=== PATIENT | female | born 1965 | race Caucasian/White ===

== ENCOUNTER 2017-03-13 15:43 | Emergency (ER) | payer MEDICAID ==
--- NOTE | 2017-03-13 15:59 | CPEKG ---
Heart Rate: 75 RR Interval: 800 P-R Interval: 140 QRSD Interval: 84 QT Interval: 464 QTC Interval: 519 P [place]: 62 QRS [place]: -24 T Wave [place]: 37 EKG Severity - ABNORMAL ECG - EKG Impression: SINUS RHYTHM EKG Impression: BORDERLINE LEFT AXIS DEVIATION EKG Impression: PROLONGED QT INTERVAL Electronically Signed By: Rosario Jose 14-Mar-2017 23:00:17
--- NOTE | 2017-03-13 16:13 | EDPHY ---
HPI/HX/ROS/PE/MDM Narrative: CHIEF COMPLAINT: Esophageal pain. HISTORY OF PRESENT ILLNESS: The patient is a 51-year-old female presenting with upper chest/esophageal pain. She reports having narrowing of her esophagus and has had bolus impaction past. The patient is followed by a puppet maker and has had multiple scopes done for this issue. She has had esophagus dilated in the past, last dilation was in August 2016. She also has history of esophageal varices. The patient has been seen here as well for this issue and had 2 negative [address]s. This morning the patient tried swallowing eggs and states it "felt like swallowing bricks". She has esophageal pain starting in her mid lower neck (at sternal notch) and radiating down to the epigastric region. She states it feels like her esophagus "clamps down so hard" it causes difficulty swallowing. In the past she has had difficulty swallowing saliva. Today the pain is not as severe as previous episodes. She feels as though there is a foreign body stuck in her esophagus. REVIEW OF SYSTEMS: Aside from elements discussed in the HPI, a comprehensive 10-point review of systems was reviewed and is negative. PAST MEDICAL HISTORY: Cirrhosis, Depression, EtOH ulcers. Patient is on the liver transplant list at the [facility]. SOCIAL HISTORY: Cigarette smoker. Scaling Machine Operator: Patricia Young at [facility]. VITAL SIGNS: Reviewed by me GENERAL: Obese, pleasant female, resting comfortably in no respiratory distress. HEENT: Atraumatic. Eyes: Scleral icterus. Mouth: moist mucous membranes. No erythema or lesions. Neck: supple with no adenopathy. LUNGS: Clear to auscultation bilaterally, no wheezes, rhonchi or rales. No crepitus of the chest wall. Mild tenderness at upper sternal area. CARDIAC: Regular rate and rhythm, no rubs, murmurs or gallops. ABDOMEN: Obese, mild epigastric tenderness. No guarding. No rebound. BACK: No CVA tenderness. EXTREMITIES: No trauma. Trace edema. Range of motion is normal throughout. NEURO: Alert and oriented, grossly nonfocal. SKIN: Warm and dry, no rash. PSYCHIATRIC: Normal mentation, no agitation. Portions of this note were transcribed by a biomedical equipment specialist. I personally performed a history, physical exam, medical decision making, and confirmed accuracy of information the transcribed note. ED Course: The patient presents with epigastric tightness and esophageal foreign object sensation. The patient has history of cirrhosis. She has been evaluated for epigastric pain in the past. She has had 2 abdominal CTs done here that were negative. Patient sees a puppet maker and has history of epigastric dilation. Today the patient had severe pain with swallowing. She is able to swallow solids and liquids though she has a significant about of pain. Plan for 1mg IV Glucagon. 5:30 p.m.: I reevaluated the patient, her pain has improved. She reports some nausea. Plan for Zofran and reevaluate. LFTs are elevated. This is consistent with previous. Bilirubin is consistent with previous elevations. I will speak to her puppet maker. I added a Troponin to lab work. I viewed the x-ray of the chest and soft tissue neck myself on the PACS system. Please see the full radiology report in the imaging section. 7:00 p.m.: I spoke to the patient's puppet maker, Dr. Young. Will see patient on thursday for scope. Patient is not drooling, tolerating orals and some solids. Troponin is negative. I discussed findings with the patient. Patient is tolerating fluids. Reports that in the past this spasm often resolves on its own. She tells me this is not the most severe that her pain has been. Plan to discharge patient home. Patient agrees with the plan and will followup with her puppet maker. MDM: After history and physical examination, the differential for patient complaints considered including but not limited to, myocardial ischemia, acute coronary syndrome, esophageal foreign body, esophageal spasm, esophagitis, chest wall pain, pleural inflammation and pulmonary infectious causes. - Data Points Imaging: I viewed and interpreted images myself Laboratory Results: Laboratory Results 03/13/17 15:57 03/13/17 15:57 Medications Given: Discontinued Medications Al Hydroxide/Mg Hydroxide (Maalox Susp) 30 ml PO EDNOW ONE Stop: 03/13/17 19:04 Last Admin: 03/13/17 19:05 Dose: 30 ml Glucagon (Glucagen) 1 mg IVP EDNOW ONE Stop: 03/13/17 16:20 Last Admin: 03/13/17 17:06 Dose: 1 mg Lidocaine (Lidocaine 2% Viscous) 5 ml PO EDNOW ONE Stop: 03/13/17 19:03 Last Admin: 03/13/17 19:05 Dose: 5 ml Nitroglycerin (Nitrostat) 0.4 mg SL EDNOW ONE Stop: 03/13/17 18:59 Last Admin: 03/13/17 19:26 Dose: Not Given Promethazine HCl (Phenergan) 25 mg PO EDNOW ONE Stop: 03/13/17 17:43 Last Admin: 03/13/17 18:17 Dose: 25 mg Simethicone (Mylicon) 80 mg PO EDNOW ONE Stop: 03/13/17 19:05 Last Admin: 03/13/17 19:05 Dose: 80 mg General Time Seen by Provider: 03/13/17 15:57 Initial Vital Signs: Initial Vital Signs Temperature (C) 36.9 C 03/13/17 15:47 Heart Rate 70 03/13/17 15:47 Respiratory Rate 14 03/13/17 15:47 Blood Pressure 120/76 03/13/17 15:47 O2 Sat (%) 96 03/13/17 15:47 O2 Delivery Mode Room Air Allergies/Adverse Reactions: peanut [Peanut] Allergy (Severe, Verified 04/10/16 15:02) Other-Enter Comments [place] And Derivatives Allergy (Mild, Verified 04/10/16 15:02) Tingling of mouth/throat meperidine HCl [From Demerol] Allergy (Mild, Verified 04/10/16 15:02) Other-Enter Comments minerals [From Enviro Stress] Allergy (Mild, Verified 04/10/16 15:02) Other-Enter Comments Shellfish *RETIRED-07/19/12 [Shellfish] Allergy (Mild, Verified 04/10/16 15:02) Tingling of mouth/throat vitamin B complex and C [From Enviro Stress] Allergy (Mild, Verified 04/10/16 15 :02) Other-Enter Comments vitamin E [From Enviro Stress] Allergy (Mild, Verified 04/10/16 15:02) Other-Enter Comments Home Medications: Medication Instructions Recorded Ranitidine HCl [Zantac] 300 mg PO HS #30 tablet 06/17/15 Potassium Cl [Klor-Con 10 meq (RX)] 10 meq PO DAILY 10/10/15 Spironolactone [Aldactone] 150 mg PO DAILY 10/10/15 buPROPion [Wellbutrin 75mg (*)] 75 mg PO DAILY 10/10/15 Pantoprazole Sodium [Protonix 40mg 40 mg PO DAILY #30 tab 10/14/15 (*)] Acetaminophen [Tylenol ES 500 mg 1,000 mg PO Q6 PRN 04/10/16 (*)] Cholecalciferol Vit D3 [Vitamin D3 2,000 units PO DAILY 04/10/16 2000 units] Herbals/Supplements -Info Only 1 ea PO DAILY 04/10/16 Propranolol HCl [Inderal 20mg (*)] 20 mg PO HS 04/10/16 Vit C/Dl-E AC/Lut/Copper/Znox 1 each PO DAILY 04/10/16 [Preservision Softgel] metroNIDAZOLE [Flagyl 500 mg (*)] 500 mg PO Q8 #21 tab 04/11/16 Lexapro 07/24/16 Metformin HCl 07/24/16 Oxycodone HCl [Oxyir] 5 mg PO Q4-8PRN #20 capsule 07/24/16 Xifaxan 07/24/16 Departure - Departure Disposition: Home, Routine, Self-Care Clinical Impression: History of esophageal stricture, upper chest pain, Sensation of foreign body in esophagus Condition: Good Instructions: Esophageal Stricture (ED) Additional Instructions: Please followup with your Scaling Machine Operator on Thursday next week further evaluation. Referrals: Bridget Lieberman, PAC [Primary Care Provider] - As per Instructions Hector Gomez, Gastroenterology [Other] - As per Instructions Report Scribed for: Barbara Hair Report Scribed by: Linda Prakash Date of Report: 03/13/17 Time of Report: 16:21
[2017-03-13] MEDS ORDERED: GLUCAGON,HUMAN RECOMBINANT 1 MG VIAL IVP ONE (16:19)
[2017-03-13 16:23] LABS: ADD DIFF? NO; ADD MORPH? NO; ADD SCAN? NO; ATYPICAL LYMPHOCYTE FLAG 30 (0-99); FRAGMENT RBC FLAG 0 (0-99); HEMATOCRIT 34.5 % (38.0-47.0); HEMOGLOBIN 12.5 g/dL (12.6-16.3); LEFT SHIFT FLG 0 (0-99); LIPEMIA HEMOLYSIS FLAG 90 (0-99); MEAN CELL HEMOGLOBIN 36.2 pg (27.9-34.1); MEAN CELL HEMOGLOBIN CONCENTR. 36.2 g/dL (32.4-36.7); MEAN PLATELET VOLUME 11.6 fL (8.7-11.7); PLATELET CLUMPS FLAG 0 (0-99); PLATELET COUNT 59 10^3/uL (150-400); RED BLOOD CELL COUNT 3.45 10^6/uL (4.18-5.33); RED CELL DISTRIBUTION WIDTH 15.4 % (11.5-15.2)
[2017-03-13 16:32] LABS: ALANINE AMINOTRANSFERASE 43 IU/L (9-52); ALBUMIN 2.9 g/dL (3.5-5.0); ALKALINE PHOSPHATASE 393 IU/L (38-126); ANION GAP 6 mEq/L (8-16); ASPARTATE AMINOTRANSFERASE 55 IU/L (14-46); BILIRUBIN,TOTAL 5.3 mg/dL (0.1-1.4); BILIRUBIN-CONJUGATED 1.8 mg/dL (0.0-0.5); BILIRUBIN-UNCONJUGATED 3.5 mg/dL (0.0-1.1); CALCIUM 8.3 mg/dL (8.5-10.4); CARBON DIOXIDE 29 mEq/l (22-31); CHLORIDE 98 mEq/L (97-110); CREATININE 0.7 mg/dL (0.6-1.0); GLOMERULAR FILTRATION RATE > 60; GLUCOSE 427 mg/dL (70-100); POTASSIUM 3.9 mEq/L (3.5-5.2); SODIUM 133 mEq/L (134-144); TOTAL PROTEIN 6.7 g/dL (6.3-8.2)
[2017-03-13] MEDS ORDERED: PROMETHAZINE HCL 25 MG TAB PO ONE (17:42)
[2017-03-13 18:18] VITALS: RESP 16
[2017-03-13] MEDS ORDERED: MAG HYDROX/AL HYDROX/SIMETH 30 ML UDCUP ONE (18:41)
[2017-03-13] MEDS ORDERED: LIDOCAINE 2% VISCOUS 15 ML UDCUP ONE (18:41)
[2017-03-13] MEDS ORDERED: HYOSCYAMINE SULFATE 0.125 MG TAB ONE (18:41)
[2017-03-13] MEDS ORDERED: NITROGLYCERIN 0.4 MG BTL SL ONE (18:58)
[2017-03-13] MEDS ORDERED: LIDOCAINE 2% VISCOUS 15 ML UDCUP PO ONE (19:02)
[2017-03-13] MEDS ORDERED: MAG HYDROX/AL HYDROX/SIMETH 30 ML UDCUP PO ONE (19:03)
[2017-03-13] MEDS ORDERED: SIMETHICONE 80 MG TAB CHEW PO ONE (19:04)
[2017-03-13 19:27] VITALS: BP 104/60; PULSE 63; O2SAT 97
[2017-03-13 19:35] VITALS: TEMP 98.2
== END 2017-03-13 19:35 | disposition home or self-care (01) ==
DX: R09.89 Other specified symptoms and signs involving the circulatory and respiratory systems (principal); F17.210 Nicotine dependence, cigarettes, uncomplicated; R07.9 Chest pain, unspecified; Z87.19 Personal history of other diseases of the digestive system; Z91.010 Allergy to peanuts
CPT/HCPCS: 96374; J1610

== ENCOUNTER 2017-03-24 22:13 | Emergency (ER) | payer MEDICAID ==
[2017-03-24 22:36] VITALS: RESP 18
[2017-03-24] MEDS ORDERED: NS 1,000 ML IV ONE (22:45)
--- NOTE | 2017-03-24 22:46 | EDPHY ---
H & P Stated Complaint: le cramping Time Seen by Provider: 03/24/17 22:37 HPI/ROS: Chief Complaint: Cramping HPI: 51-year-old woman history of cirrhosis on diuretics presenting with bilateral foot ankle calves and left chest and hand cramping. Patient takes potassium because he is on diuretics for cirrhosis. Has had some mild cramping in the past but has never this severe. Not had any recent illness. No fevers or chills. Nose. No cough. Cirrhosis secondary to history of alcoholic liver disease. Last alcohol intake was 4 years ago. She also has type 2 diabetes. Patient states she is not on fluid restrictions. EMS gave her is Valium IV with minimal relief. No fevers or chills. No recent falls or injuries. ROS: 10 point Review of Systems is negative except as noted in the HPI. PMH: Alcoholic liver disease, cirrhosis, type 2 diabetes Social History: Positive for smoking, no alcohol for 4 years, no recreational drug use Family History: non-contributory Physical Exam: Gen: Awake, Alert, No Distress HEENT: Nose: no rhinorrhea Eyes: PERRLA, EOMI Mouth: Moist mucosa Neck: Supple, no JVD Chest: nontender, lungs clear to auscultation Heart: S1, S2 normal, no murmur Abd: Soft, non-tender, no guarding Back: no CVA tenderness, no midline tenderness Ext: no edema, non-tender Skin: no rash Neuro: CN II-XII intact, Sensation grossly intact, Strength 5/5 in bilateral upper and lower extremities - Personal History Current Tetanus/Diphtheria Vaccine: Unsure Current Tetanus Diphtheria and Acellular Pertussis (TDAP): Unsure Tetanus Vaccine Date: 2005 - Medical/Surgical History Hx Asthma: No Hx Chronic Respiratory Disease: No Hx Diabetes: No Hx Cardiac Disease: No Hx Renal Disease: No Hx Cirrhosis: Yes Hx Alcoholism: Yes Hx HIV/AIDS: No Hx Splenectomy or Spleen Trauma: No Other PMH: depression, cirrhosis, ETOH/ULCERS, daily smoker - Social History Smoking Status: Heavy smoker Constitutional: Initial Vital Signs Temperature (C) 37.1 C 03/24/17 22:20 Heart Rate 67 03/24/17 22:20 Respiratory Rate 18 03/24/17 22:20 Blood Pressure 114/85 H 03/24/17 22:20 O2 Sat (%) 95 03/24/17 22:20 O2 Delivery Mode Room Air Allergies/Adverse Reactions: peanut [Peanut] Allergy (Severe, Verified 04/10/16 15:02) Other-Enter Comments [place] And Derivatives Allergy (Mild, Verified 04/10/16 15:02) Tingling of mouth/throat meperidine HCl [From Demerol] Allergy (Mild, Verified 04/10/16 15:02) Other-Enter Comments minerals [From Enviro Stress] Allergy (Mild, Verified 04/10/16 15:02) Other-Enter Comments Shellfish *RETIRED-07/19/12 [Shellfish] Allergy (Mild, Verified 04/10/16 15:02) Tingling of mouth/throat vitamin B complex and C [From Enviro Stress] Allergy (Mild, Verified 04/10/16 15 :02) Other-Enter Comments vitamin E [From Enviro Stress] Allergy (Mild, Verified 04/10/16 15:02) Other-Enter Comments Home Medications: Medication Instructions Recorded Ranitidine HCl [Zantac] 300 mg PO HS #30 tablet 06/17/15 Potassium Cl [Klor-Con 10 meq (RX)] 10 meq PO DAILY 10/10/15 Spironolactone [Aldactone] 150 mg PO DAILY 10/10/15 buPROPion [Wellbutrin 75mg (*)] 75 mg PO DAILY 10/10/15 Pantoprazole Sodium [Protonix 40mg 40 mg PO DAILY #30 tab 10/14/15 (*)] Acetaminophen [Tylenol ES 500 mg 1,000 mg PO Q6 PRN 04/10/16 (*)] Cholecalciferol Vit D3 [Vitamin D3 2,000 units PO DAILY 04/10/16 2000 units] Herbals/Supplements -Info Only 1 ea PO DAILY 04/10/16 Propranolol HCl [Inderal 20mg (*)] 20 mg PO HS 04/10/16 Vit C/Dl-E AC/Lut/Copper/Znox 1 each PO DAILY 04/10/16 [Preservision Softgel] Lexapro 07/24/16 Xifaxan 07/24/16 Medical Decision Making ED Course/Re-evaluation: Patient is improved after fluids in by EMS. She is mildly hypomagnesemic otherwise electrolytes appear normal. No evidence acute infectious or vascular process at this time. She is otherwise well-appearing. [facility] She has magnesium supplements at home. I have encouraged her to double these for the next several days, follow up with primary care physician. Return for worsening. - Data Points Laboratory Results: Laboratory Results 03/24/17 23:20 03/24/17 23:20 03/24/17 03/24/17 23:20 23:20 WBC REJ RBC REJ Hgb REJ Hct REJ MCV REJ MCH REJ MCHC REJ RDW REJ Plt Count REJ MPV REJ Neut % (Auto) REJ Lymph % (Auto) REJ [place] % (Auto) REJ Eos % (Auto) REJ Baso % (Auto) REJ Nucleat RBC Rel Count REJ Absolute Neuts (auto) REJ Absolute Lymphs (auto) REJ Absolute Monos (auto) REJ Absolute Eos (auto) REJ Absolute Basos (auto) REJ Absolute Nucleated RBC REJ Immature Gran % REJ Immature Gran # REJ Sodium 138 mEq/L mEq/L (134-144) Potassium 3.9 mEq/L mEq/L (3.5-5.2) Chloride 103 mEq/L mEq/L (97-110) Carbon Dioxide 27 mEq/l mEq/l (22-31) Anion Gap 8 mEq/L mEq/L (8-16) BUN 9 mg/dL mg/dL (7-23) Creatinine 0.8 mg/dL mg/dL (0.6-1.0) Estimated GFR > 60 Glucose 165 mg/dL H mg/dL (70-100) Calcium 8.4 mg/dL L mg/dL (8.5-10.4) Phosphorus 2.6 mg/dL mg/dL (2.5-4.5) Magnesium 1.5 mg/dL L mg/dL (1.6-2.3) Medications Given: Discontinued Medications Diazepam (Valium 5 Mg Prepack#4) 1 btl TAKEHOME EDNOW ONE Stop: 03/25/17 00:37 Last Admin: 03/25/17 01:30 Dose: 1 btl Sodium Chloride (Ns) 1,000 mls @ 0 mls/hr IV ONCE ONE PRN Reason: Wide Open Stop: 03/24/17 22:46 Last Admin: 03/24/17 23:45 Dose: 1,000 mls Departure - Departure Disposition: Home, Routine, Self-Care Clinical Impression: Muscle cramping, Hypomagnesemia Condition: Good Instructions: Diazepam (By mouth), Hypomagnesemia (ED) Additional Instructions: May take a double your dose of your magnesium supplements for the next 3 days. You may take Valium as needed every 8 hours for cramping. Make sure to drink plenty of fluids. Follow up with primary care physician in 2-3 days for re-evaluation. Referrals: Bridget Lieberman, PAC [Primary Care Provider] - As per Instructions
[2017-03-24 23:39] LABS: ANION GAP 8 mEq/L (8-16); CALCIUM 8.4 mg/dL (8.5-10.4); CARBON DIOXIDE 27 mEq/l (22-31); CHLORIDE 103 mEq/L (97-110); CREATININE 0.8 mg/dL (0.6-1.0); GLOMERULAR FILTRATION RATE > 60; GLUCOSE 165 mg/dL (70-100); MAGNESIUM 1.5 mg/dL (1.6-2.3); POTASSIUM 3.9 mEq/L (3.5-5.2); SODIUM 138 mEq/L (134-144)
[2017-03-25] MEDS ORDERED: DIAZEPAM 5 MG PREPACK#4 BTL TAKEHOME ONE (00:36)
[2017-03-25 01:38] VITALS: BP 91/69; PULSE 62; TEMP 98.4; O2SAT 98
== END 2017-03-25 01:40 | disposition home or self-care (01) ==
LOC: EDUNIT#
DX: M79.1 Myalgia (principal); E83.42 Hypomagnesemia; E11.9 Type 2 diabetes mellitus without complications; F17.200 Nicotine dependence, unspecified, uncomplicated; Z91.010 Allergy to peanuts

== ENCOUNTER 2017-04-17 00:22 | Emergency (ER) | payer MEDICAID ==
[2017-04-17] MEDS ORDERED: NS 1,000 ML IV ONE (01:04)
[2017-04-17] MEDS ORDERED: ONDANSETRON 4 MG/2 ML VIAL IVP ONE (01:04)
[2017-04-17] MEDS ORDERED: FAMOTIDINE 20 MG/NACL 50 ML IV ONE (01:04)
[2017-04-17 01:41] LABS: % IMMATURE GRANULYOCYTES 0.3 % (0.0-1.1); ABSOLUTE IMMATURE GRANULOCYTES 0.02 10^3/uL (0.00-0.10); ADD DIFF? NO; ADD MORPH? NO; ADD SCAN? NO; ATYPICAL LYMPHOCYTE FLAG 0 (0-99); FRAGMENT RBC FLAG 0 (0-99); HEMATOCRIT 37.2 % (38.0-47.0); HEMOGLOBIN 12.8 g/dL (12.6-16.3); LEFT SHIFT FLG 0 (0-99); LIPEMIA HEMOLYSIS FLAG 90 (0-99); MEAN CELL HEMOGLOBIN 36.1 pg (27.9-34.1); MEAN CELL HEMOGLOBIN CONCENTR. 34.4 g/dL (32.4-36.7); MEAN CELL VOLUME 104.8 fL (81.5-99.8); MEAN PLATELET VOLUME 11.8 fL (8.7-11.7); PLATELET CLUMPS FLAG 0 (0-99); PLATELET COUNT 50 10^3/uL (150-400); RED BLOOD CELL COUNT 3.55 10^6/uL (4.18-5.33); RED CELL DISTRIBUTION WIDTH 14.9 % (11.5-15.2)
--- NOTE | 2017-04-17 01:49 | CPEKG ---
Heart Rate: 62 RR Interval: 968 P-R Interval: 144 QRSD Interval: 84 QT Interval: 424 QTC Interval: 431 P [place]: 69 QRS [place]: -19 T Wave [place]: 26 EKG Severity - BORDERLINE ECG - EKG Impression: SINUS RHYTHM EKG Impression: BORDERLINE LEFT AXIS DEVIATION Electronically Signed By: Johana Valdez 17-Apr-2017 07:17:59
[2017-04-17 02:00] LABS: ALANINE AMINOTRANSFERASE 38 IU/L (9-52); ALBUMIN 3.2 g/dL (3.5-5.0); ALKALINE PHOSPHATASE 238 IU/L (38-126); ANION GAP 10 mEq/L (8-16); ASPARTATE AMINOTRANSFERASE 59 IU/L (14-46); BILIRUBIN,TOTAL 3.9 mg/dL (0.1-1.4); BILIRUBIN-CONJUGATED 1.3 mg/dL (0.0-0.5); BILIRUBIN-UNCONJUGATED 2.6 mg/dL (0.0-1.1); CALCIUM 9.1 mg/dL (8.5-10.4); CARBON DIOXIDE 28 mEq/l (22-31); CHLORIDE 101 mEq/L (97-110); CREATININE 0.8 mg/dL (0.6-1.0); GLOMERULAR FILTRATION RATE > 60; GLUCOSE 189 mg/dL (70-100); POTASSIUM 3.3 mEq/L (3.5-5.2); SODIUM 139 mEq/L (134-144); TOTAL PROTEIN 7.1 g/dL (6.3-8.2)
[2017-04-17 02:11] LABS: TROPONIN I < 0.012 ng/mL (0-0.034)
[2017-04-17] MEDS ORDERED: KETOROLAC 15 MG/1 ML SDV IVP ONE (03:03)
--- NOTE | 2017-04-17 03:09 | EDPHY ---
H & P Stated Complaint: epigastric pain Time Seen by Provider: 04/17/17 00:53 HPI/ROS: HPI The patient presents with epigastric and midsternal pain which began tonight at about 10:30 p.m. while sitting at home. The pain feels like a muscle ache to her, it is constant, it is moderate in severity, does not radiate. She cannot describe any alleviating or exacerbating factors. It is associated with nausea. She has had epigastric pain before and has been evaluated in the emergency room for this, however this pain seems somewhat different to her. She does not have any shortness of breath, vomiting, dizziness or diaphoresis. She has generally felt nauseated over the last several days and she attributes this to her cirrhosis. She denies any current alcohol use. REVIEW OF SYSTEMS Constitutional: No fever, no chills. Eyes: No discharge. ENT: No sore throat. Cardiovascular: No chest pain, no palpitations. Respiratory: No cough, no shortness of breath. Gastrointestinal: No abdominal pain, no vomiting. Genitourinary: No hematuria. Musculoskeletal: No back pain. Skin: No rashes. Neurological: No headache. PMHx: Alcoholic cirrhosis on liver transplant list for the last 18 months Soc Hx: Lives at home, no alcohol use currently PHYSICAL General Appearance: Alert, no distress Eyes: Pupils equal and round no pallor or injection ENT, Mouth: Mucous membranes moist Respiratory: There are no retractions, lungs are clear to auscultation Cardiovascular: Regular rate and rhythm Gastrointestinal: Abdomen is soft with mild epigastric tenderness, no masses, bowel sounds normal Neurological: A&O, moves all extremities Skin: Warm and dry, no rashes Musculoskeletal: Neck is supple non tender Extremities: symmetrical, full range of motion Psychiatric: Patient is oriented X 3, there is no agitation Source: Patient Exam Limitations: No limitations - Personal History LMP (Females 10-55): Post Menopausal Current Tetanus/Diphtheria Vaccine: No Tetanus Vaccine Date: 2005 - Medical/Surgical History Hx Asthma: No Hx Chronic Respiratory Disease: No Hx Diabetes: No Hx Cardiac Disease: No Hx Renal Disease: No Hx Cirrhosis: Yes Hx Alcoholism: Yes Hx HIV/AIDS: No Hx Splenectomy or Spleen Trauma: No Other PMH: PMHx: depression, cirrhosis, ETOH/ULCERS - Social History Smoking Status: Heavy smoker Constitutional: Initial Vital Signs Temperature (C) 36.9 C 06/09/17 00:25 Heart Rate 52 L 04/17/17 00:25 Respiratory Rate 17 04/17/17 00:25 Blood Pressure 138/59 H 04/17/17 00:25 O2 Sat (%) 96 04/17/17 00:25 O2 Delivery Mode Room Air Allergies/Adverse Reactions: peanut [Peanut] Allergy (Severe, Verified 04/10/16 15:02) Other-Enter Comments [place] And Derivatives Allergy (Mild, Verified 04/10/16 15:02) Tingling of mouth/throat meperidine HCl [From Demerol] Allergy (Mild, Verified 04/10/16 15:02) Other-Enter Comments minerals [From Enviro Stress] Allergy (Mild, Verified 04/10/16 15:02) Other-Enter Comments Shellfish *RETIRED-07/19/12 [Shellfish] Allergy (Mild, Verified 04/10/16 15:02) Tingling of mouth/throat vitamin B complex and C [From Enviro Stress] Allergy (Mild, Verified 04/10/16 15 :02) Other-Enter Comments vitamin E [From Enviro Stress] Allergy (Mild, Verified 04/10/16 15:02) Other-Enter Comments Home Medications: Medication Instructions Recorded Ranitidine HCl [Zantac] 300 mg PO HS #30 tablet 06/17/15 Potassium Cl [Klor-Con 10 meq (RX)] 10 meq PO DAILY 10/10/15 Spironolactone [Aldactone] 150 mg PO DAILY 10/10/15 buPROPion [Wellbutrin 75mg (*)] 75 mg PO DAILY 10/10/15 Pantoprazole Sodium [Protonix 40mg 40 mg PO DAILY #30 tab 10/14/15 (*)] Acetaminophen [Tylenol ES 500 mg 1,000 mg PO Q6 PRN 04/10/16 (*)] Cholecalciferol Vit D3 [Vitamin D3 2,000 units PO DAILY 04/10/16 2000 units] Herbals/Supplements -Info Only 1 ea PO DAILY 04/10/16 Propranolol HCl [Inderal 20mg (*)] 20 mg PO HS 04/10/16 Vit C/Dl-E AC/Lut/Copper/Znox 1 each PO DAILY 04/10/16 [Preservision Softgel] Lexapro 07/24/16 Xifaxan 07/24/16 Medical Decision Making - Diagnostics EKG Interpretation: EKG: Complete interpretation has been separately recorded in the [employer] archive. Summary impression: Diffuse T-wave flattening Imaging Results: Chest x-ray one view is unremarkable, interpreted by me, radiology interpretation is pending. Procedures: Bedside right upper quadrant Ultrasound- performed and interpreted by me. Indication: Epigastric pain Findings: Multiple gallstones, no pericholecystic fluid, no sonographic Bess' s Impression: Gallstones present Differential Diagnosis: This is a 51-year-old female with alcoholic cirrhosis who presents with epigastric and chest pain since earlier tonight. On exam, she is well- appearing with normal vital signs, she does have mild tenderness in her epigastrium. Differential diagnosis includes gastritis, ACS, pancreatitis, biliary colic. In the emergency room, labs were checked. Her liver tests were elevated, though improved as compared to other liver testing she has had. Her lipase was elevated, this is a new finding for her. She is not drinking alcohol so I doubt that is the cause of her pancreatitis. Right upper quadrant bedside ultrasound was performed by me which did demonstrate gallstones which could possibly be contributing to pancreatitis. The patient's cardiac testing was normal. After her IV fluid, Zofran, famotidine her pain was much improved and repeat abdominal exam was benign. She felt well and wanted to go home. I feel she is too well-appearing to have gallstone pancreatitis requiring admission. I will refer her to General surgery and I have asked that she follow up with her usual mobility developer. I have advised a clear liquid her bland diet until she is feeling better. She is comfortable with this plan and will be discharged. - Data Points Laboratory Results: Laboratory Results 04/17/17 01:35 04/17/17 01:35 04/17/17 04/17/17 01:35 01:35 WBC 6.00 10^3/uL 10^3/uL (3.80-9.50) RBC 3.55 10^6/uL L 10^6/uL (4.18-5.33) Hgb 12.8 g/dL g/dL (12.6-16.3) Hct 37.2 % L % (38.0-47.0) MCV 104.8 fL H fL (81.5-99.8) MCH 36.1 pg H pg (27.9-34.1) MCHC 34.4 g/dL g/dL (32.4-36.7) RDW 14.9 % % (11.5-15.2) Plt Count 50 10^3/uL L 10^3/uL (150-400) MPV 11.8 fL H fL (8.7-11.7) Neut % (Auto) 75.0 % H % (39.3-74.2) Lymph % (Auto) 13.3 % L % (15.0-45.0) [place] % (Auto) 6.7 % % (4.5-13.0) Eos % (Auto) 4.2 % % (0.6-7.6) Baso % (Auto) 0.5 % % (0.3-1.7) Nucleat RBC Rel Count 0.0 % % (0.0-0.2) Absolute Neuts (auto) 4.50 10^3/uL 10^3/uL (1.70-6.50) Absolute Lymphs (auto) 0.80 10^3/uL L 10^3/uL (1.00-3.00) Absolute Monos (auto) 0.40 10^3/uL 10^3/uL (0.30-0.80) Absolute Eos (auto) 0.25 10^3/uL 10^3/uL (0.03-0.40) Absolute Basos (auto) 0.03 10^3/uL 10^3/uL (0.02-0.10) Absolute Nucleated RBC 0.00 10^3/uL 10^3/uL (0-0.01) Immature Gran % 0.3 % % (0.0-1.1) Immature Gran # 0.02 10^3/uL 10^3/uL (0.00-0.10) Sodium 139 mEq/L mEq/L (134-144) Potassium 3.3 mEq/L L mEq/L (3.5-5.2) Chloride 101 mEq/L mEq/L (97-110) Carbon Dioxide 28 mEq/l D mEq/l (22-31) Anion Gap 10 mEq/L mEq/L (8-16) BUN 11 mg/dL mg/dL (7-23) Creatinine 0.8 mg/dL mg/dL (0.6-1.0) Estimated GFR > 60 Glucose 189 mg/dL H mg/dL (70-100) Calcium 9.1 mg/dL mg/dL (8.5-10.4) Total Bilirubin 3.9 mg/dL H mg/dL (0.1-1.4) Conjugated Bilirubin 1.3 mg/dL H mg/dL (0.0-0.5) Unconjugated Bilirubin 2.6 mg/dL H mg/dL (0.0-1.1) AST 59 IU/L H IU/L (14-46) ALT 38 IU/L IU/L (9-52) Alkaline Phosphatase 238 IU/L H IU/L (38-126) Troponin I < 0.012 ng/mL ng/mL (0-0.034) Total Protein 7.1 g/dL g/dL (6.3-8.2) Albumin 3.2 g/dL L g/dL (3.5-5.0) Lipase 539.0 IU/L H IU/L (23-300) Medications Given: Discontinued Medications Sodium Chloride (Ns) 1,000 mls @ 0 mls/hr IV ONCE ONE; Wide Open PRN Reason: Protocol Stop: 04/17/17 01:05 Last Admin: 04/17/17 01:45 Dose: 1,000 mls Famotidine/Sodium Chloride (Pepcid 20 Mg (Premix)) 50 mls @ 200 mls/hr IV EDNOW ONE Stop: 04/17/17 01:18 Last Admin: 04/17/17 01:45 Dose: 50 mls Ketorolac Tromethamine (Toradol) 15 mg IVP EDNOW ONE Stop: 04/17/17 03:04 Last Admin: 04/17/17 03:30 Dose: 15 mg Ondansetron HCl (Zofran) 4 mg IVP EDNOW ONE Stop: 04/17/17 01:05 Last Admin: 04/17/17 01:56 Dose: 4 mg Departure - Departure Disposition: Home, Routine, Self-Care Clinical Impression: Gallstones Pancreatitis Qualifiers: Chronicity: acute Pancreatitis type: idiopathic Acute pancreatitis complication : no infection or necrosis Qualified Code(s): K85.00 - Idiopathic acute pancreatitis without necrosis or infection Condition: Good Instructions: Pancreatitis (ED), Gallstones (ED), Clear Liquid Diet (ED) Additional Instructions: If your abdominal pain returns, please return to the emergency room immediately. You should follow up with your mobility developer in the next few days for recheck. You should maintain a clear liquid diet until your feeling better. We did find gallstones on her ultrasound today. Occasionally when people have symptoms from these, they do need to be removed. For that reason I am referring you to a surgeon. You could follow up if you would like. Referrals: Bridget Lieberman, ANN [Primary Care Provider] - As per Instructions Isak Herrera MD [Medical Doctor] - As per Instructions
[2017-04-17 03:50] VITALS: BP 103/59; PULSE 69; RESP 16; TEMP 98.2; O2SAT 94
== END 2017-04-17 03:50 | disposition home or self-care (01) ==
DX: K80.20 Calculus of gallbladder without cholecystitis without obstruction (principal); K85.00 Idiopathic acute pancreatitis without necrosis or infection; F17.200 Nicotine dependence, unspecified, uncomplicated
CPT/HCPCS: 96374; J1885; J2405

== ENCOUNTER → 2017-07-21 | Outpatient (CLI) | payer MEDICAID | LOC: FIMAGING 14:24 | PROVIDERS: ATTEND Physician Assistant | DX: Z03.89 Encounter for observation for other suspected diseases and conditions ruled out (principal) | CPT/HCPCS: G0204 ==

== ENCOUNTER 2017-09-16 13:50 | Emergency (ER) | payer MEDICAID ==
[2017-09-16 13:57] VITALS: RESP 16; TEMP 98.1
--- NOTE | 2017-09-16 14:41 | CPEKG ---
Heart Rate: 64 RR Interval: 938 P-R Interval: 184 QRSD Interval: 86 QT Interval: 472 QTC Interval: 487 P [place]: 40 QRS [place]: -23 T Wave [place]: 203 EKG Severity - ABNORMAL ECG - EKG Impression: SINUS RHYTHM EKG Impression: PAC's EKG Impression: BORDERLINE LEFT AXIS DEVIATION EKG Impression: NONSPECIFIC T ABNORMALITIES, DIFFUSE LEADS EKG Impression: BORDERLINE PROLONGED QT INTERVAL Electronically Signed By: Thalia Roy 16-Sep-2017 21:35:35
[2017-09-16] MEDS ORDERED: ONDANSETRON 4 MG/2 ML VIAL IVP ONE (14:47)
[2017-09-16] MEDS ORDERED: PANTOPRAZOLE SODIUM 40 MG VIAL IVP ONE (14:48)
[2017-09-16 14:50] LABS: % IMMATURE GRANULYOCYTES 0.5 % (0.0-1.1); ABSOLUTE IMMATURE GRANULOCYTES 0.03 10^3/uL (0.00-0.10); ADD DIFF? NO; ADD MORPH? NO; ADD SCAN? NO; ATYPICAL LYMPHOCYTE FLAG 10 (0-99); FRAGMENT RBC FLAG 0 (0-99); HEMATOCRIT 37.8 % (38.0-47.0); LEFT SHIFT FLG 0 (0-99); LIPEMIA HEMOLYSIS FLAG 90 (0-99); MEAN CELL VOLUME 97.2 fL (81.5-99.8); MEAN PLATELET VOLUME 11.5 fL (8.7-11.7); PLATELET CLUMPS FLAG 10 (0-99); PLATELET COUNT 56 10^3/uL (150-400); RED BLOOD CELL COUNT 3.89 10^6/uL (4.18-5.33)
--- NOTE | 2017-09-16 14:51 | EDPHY ---
H & P Time Seen by Provider: 09/16/17 14:34 HPI/ROS: CHIEF COMPLAINT: Abdominal pain, vomiting HISTORY OF PRESENT ILLNESS: 51-year-old female with cirrhosis presents with abdominal pain and vomiting. Onset of epigastric pain 2 hours ago. The pain is constant and severe. Associated with multiple episodes of vomiting. Radiates to the back. Pain started immediately after eating a pastry and drinking coffee. History of gallstones and peptic ulcer disease. 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 [facility], sober for 2 years Gallstones Social History: No recent alcohol Smoking Status: Heavy smoker Physical Exam: General Appearance: Alert, appears in pain Eyes: Pupils equal and round, no conjunctival pallor or injection ENT, Mouth: Mucous membranes moist Neck: Normal inspection Respiratory: Lungs are clear to auscultation Cardiovascular: Regular rate and rhythm Gastrointestinal: Abdomen is soft, epigastric and right upper quadrant tenderness, no peritoneal signs Neurological: A&O, nonfocal, normal gait Skin: Warm and dry, no rash Extremities: Nontender, no pedal edema Psychiatric: Mood and affect normal Constitutional: Initial Vital Signs Temperature (C) 36.7 C 09/16/17 13:53 Heart Rate 48 L 09/16/17 13:53 Respiratory Rate 16 09/16/17 13:53 Blood Pressure 137/88 H 09/16/17 13:53 O2 Sat (%) 97 09/16/17 13:53 O2 Delivery Mode Nasal Cannula O2 (L/minute) 2 Allergies/Adverse Reactions: peanut [Peanut] Allergy (Severe, Verified 04/10/16 15:02) Other-Enter Comments [place] And Derivatives Allergy (Mild, Verified 04/10/16 15:02) Tingling of mouth/throat meperidine HCl [From Demerol] Allergy (Mild, Verified 04/10/16 15:02) Other-Enter Comments minerals [From Enviro Stress] Allergy (Mild, Verified 04/10/16 15:02) Other-Enter Comments Shellfish *RETIRED-07/19/12 [Shellfish] Allergy (Mild, Verified 04/10/16 15:02) Tingling of mouth/throat vitamin B complex and C [From Enviro Stress] Allergy (Mild, Verified 04/10/16 15 :02) Other-Enter Comments vitamin E [From Enviro Stress] Allergy (Mild, Verified 04/10/16 15:02) Other-Enter Comments Home Medications: Medication Instructions Recorded Ranitidine HCl [Zantac] 300 mg PO HS #30 tablet 06/17/15 Potassium Cl [Klor-Con 10 meq (RX)] 10 meq PO DAILY 10/10/15 Spironolactone [Aldactone] 150 mg PO DAILY 10/10/15 buPROPion [Wellbutrin 75mg (*)] 75 mg PO DAILY 10/10/15 Pantoprazole Sodium [Protonix 40mg 40 mg PO DAILY #30 tab 10/14/15 (*)] Acetaminophen [Tylenol ES 500 mg 1,000 mg PO Q6 PRN 04/10/16 (*)] Cholecalciferol Vit D3 [Vitamin D3 2,000 units PO DAILY 04/10/16 2000 units] Herbals/Supplements -Info Only 1 ea PO DAILY 04/10/16 Propranolol HCl [Inderal 20mg (*)] 20 mg PO HS 04/10/16 Vit C/Dl-E AC/Lut/Copper/Znox 1 each PO DAILY 04/10/16 [Preservision Softgel] Lexapro 07/24/16 Xifaxan 07/24/16 Medical Decision Making - Diagnostics EKG Interpretation: EKG interpreted by me reveals sinus rhythm, rate 64, LAD, diffuse T-wave changes , nonspecific. Impression: Abnormal EKG ED Course/Re-evaluation: This patient presents with epigastric pain and vomiting. Concerning for biliary colic versus pancreatitis. Similar to prior emergency department visit in 2016. Morphine and Zofran IV given for pain control. 3:40 p.m.-feels better. Nausea has resolved. Continues to have moderate epigastric pain radiating to the back. Abdominal exam remains benign. LFTs are relatively unchanged from previously and lipase is normal. No evidence of acute pancreatitis or acute hepatitis. Toradol 15 mg IV given. 4:20 p.m.-pain is resolved. Abdomen is soft and nontender. Tolerating oral fluids well. Ready to be discharged home. Clinical presentation consistent with biliary colic. No evidence of cholecystitis. I feel she is safe and stable for discharge. She was encouraged to follow up with her supervisor warping department and with a general surgeon for consideration of cholecystectomy. Dietary instructions given. Differential Diagnosis: Differential diagnosis includes though it is not limited to appendicitis, cholecystitis, diverticulitis, pyelonephritis, bowel perforation, small bowel obstruction. - Data Points Laboratory Results: Laboratory Results 09/16/17 14:41 09/16/17 14:41 09/16/17 09/16/17 14:41 14:41 WBC 5.64 10^3/uL 10^3/uL (3.80-9.50) RBC 3.89 10^6/uL L 10^6/uL (4.18-5.33) Hgb 14.0 g/dL g/dL (12.6-16.3) Hct 37.8 % L % (38.0-47.0) MCV 97.2 fL fL (81.5-99.8) MCH 36.0 pg H pg (27.9-34.1) MCHC 37.0 g/dL H g/dL (32.4-36.7) RDW 14.0 % % (11.5-15.2) Plt Count 56 10^3/uL L 10^3/uL (150-400) MPV 11.5 fL fL (8.7-11.7) Neut % (Auto) 72.2 % % (39.3-74.2) Lymph % (Auto) 16.7 % % (15.0-45.0) [place] % (Auto) 6.4 % % (4.5-13.0) Eos % (Auto) 3.5 % % (0.6-7.6) Baso % (Auto) 0.7 % % (0.3-1.7) Nucleat RBC Rel Count 0.0 % % (0.0-0.2) Absolute Neuts (auto) 4.07 10^3/uL 10^3/uL (1.70-6.50) Absolute Lymphs (auto) 0.94 10^3/uL L 10^3/uL (1.00-3.00) Absolute Monos (auto) 0.36 10^3/uL 10^3/uL (0.30-0.80) Absolute Eos (auto) 0.20 10^3/uL 10^3/uL (0.03-0.40) Absolute Basos (auto) 0.04 10^3/uL 10^3/uL (0.02-0.10) Absolute Nucleated RBC 0.00 10^3/uL 10^3/uL (0-0.01) Immature Gran % 0.5 % % (0.0-1.1) Immature Gran # 0.03 10^3/uL 10^3/uL (0.00-0.10) Sodium 139 mEq/L mEq/L (134-144) Potassium 3.9 mEq/L mEq/L (3.5-5.2) Chloride 104 mEq/L mEq/L (97-110) Carbon Dioxide 24 mEq/l mEq/l (22-31) Anion Gap 11 mEq/L mEq/L (8-16) BUN 6 mg/dL L mg/dL (7-23) Creatinine 0.7 mg/dL mg/dL (0.6-1.0) Estimated GFR > 60 Glucose 214 mg/dL H mg/dL (70-100) Calcium 8.7 mg/dL mg/dL (8.5-10.4) Total Bilirubin 8.2 mg/dL H mg/dL (0.1-1.4) Conjugated Bilirubin 2.4 mg/dL H mg/dL (0.0-0.5) Unconjugated Bilirubin 5.8 mg/dL H mg/dL (0.0-1.1) AST 55 IU/L H IU/L (14-46) ALT 38 IU/L IU/L (9-52) Alkaline Phosphatase 309 IU/L H IU/L (38-126) Troponin I < 0.012 ng/mL ng/mL (0.000-0.034) Total Protein 7.2 g/dL g/dL (6.3-8.2) Albumin 2.8 g/dL L g/dL (3.5-5.0) Lipase 168 IU/L IU/L (23-300) Medications Given: Discontinued Medications Ketorolac Tromethamine (Toradol) 15 mg IVP EDNOW ONE Stop: 09/16/17 15:41 Last Admin: 09/16/17 15:44 Dose: 15 mg Morphine Sulfate (Morphine) 6 mg IVP EDNOW ONE Stop: 09/16/17 14:48 Last Admin: 09/16/17 14:53 Dose: 6 mg Ondansetron HCl (Zofran) 4 mg IVP EDNOW ONE Stop: 09/16/17 14:48 Last Admin: 09/16/17 14:53 Dose: 4 mg Pantoprazole Sodium (Protonix) 40 mg IVP EDNOW ONE Stop: 09/16/17 14:49 Last Admin: 09/16/17 14:56 Dose: 40 mg Departure - Departure Disposition: Home, Routine, Self-Care Clinical Impression: Biliary colic Condition: Good Instructions: Epigastric Pain (ED), Biliary Colic (ED) Additional Instructions: Clear liquids for 24 hours. Eat a bland and low-fat diet. Return for worsening symptoms or any concerns. Referrals: Bridget Lieberman, PAC [Primary Care Provider] - As per Instructions
[2017-09-16 15:07] LABS: ALANINE AMINOTRANSFERASE 38 IU/L (9-52); ALBUMIN 2.8 g/dL (3.5-5.0); ALKALINE PHOSPHATASE 309 IU/L (38-126); ANION GAP 11 mEq/L (8-16); ASPARTATE AMINOTRANSFERASE 55 IU/L (14-46); BILIRUBIN,TOTAL 8.2 mg/dL (0.1-1.4); BILIRUBIN-CONJUGATED 2.4 mg/dL (0.0-0.5); BILIRUBIN-UNCONJUGATED 5.8 mg/dL (0.0-1.1); CALCIUM 8.7 mg/dL (8.5-10.4); CARBON DIOXIDE 24 mEq/l (22-31); CHLORIDE 104 mEq/L (97-110); CREATININE 0.7 mg/dL (0.6-1.0); GLOMERULAR FILTRATION RATE > 60; GLUCOSE 214 mg/dL (70-100); POTASSIUM 3.9 mEq/L (3.5-5.2); SODIUM 139 mEq/L (134-144); TOTAL PROTEIN 7.2 g/dL (6.3-8.2)
[2017-09-16 15:18] LABS: TROPONIN I < 0.012 ng/mL (0.000-0.034)
[2017-09-16] MEDS ORDERED: KETOROLAC 15 MG/1 ML SDV IVP ONE (15:40)
[2017-09-16 16:31] VITALS: BP 103/70; PULSE 56; O2SAT 95
== END 2017-09-16 16:48 | disposition home or self-care (01) ==
DX: K80.50 Calculus of bile duct without cholangitis or cholecystitis without obstruction (principal); F17.200 Nicotine dependence, unspecified, uncomplicated; Z91.010 Allergy to peanuts
CPT/HCPCS: 96374; J1885; J2405

== ENCOUNTER 2018-01-28 19:51 | Emergency (ER) | payer MEDICAID ==
[2018-01-28 20:10] VITALS: BP 123/77; PULSE 72; RESP 16; TEMP 98.6; O2SAT 97
--- NOTE | 2018-01-28 20:31 | EDPHY ---
H & P Stated Complaint: picked up mother off floor 2 weeks ago still having back pain Time Seen by Provider: 01/28/18 20:31 - Personal History LMP (Females 10-55): Post Menopausal Current Tetanus/Diphtheria Vaccine: Yes Current Tetanus Diphtheria and Acellular Pertussis (TDAP): Yes Tetanus Vaccine Date: 2005 - Medical/Surgical History Hx Asthma: No Hx Chronic Respiratory Disease: No Hx Diabetes: Yes Hx Cardiac Disease: No Hx Renal Disease: No Hx Cirrhosis: Yes Hx Alcoholism: Yes Hx HIV/AIDS: No Hx Splenectomy or Spleen Trauma: No Other PMH: PMHx: depression, cirrhosis, ETOH/ULCERS, gallbladder stones. DM - Social History Smoking Status: Light smoker Constitutional: Initial Vital Signs Temperature (C) 37.0 C 01/28/18 20:06 Heart Rate 72 01/28/18 20:06 Respiratory Rate 16 01/28/18 20:06 Blood Pressure 123/77 H 01/28/18 20:06 O2 Sat (%) 97 01/28/18 20:06 O2 Delivery Mode Room Air Allergies/Adverse Reactions: peanut [Peanut] Allergy (Severe, Verified 04/10/16 15:02) Other-Enter Comments [place] And Derivatives Allergy (Mild, Verified 04/10/16 15:02) Tingling of mouth/throat meperidine HCl [From Demerol] Allergy (Mild, Verified 04/10/16 15:02) Other-Enter Comments minerals [From Enviro Stress] Allergy (Mild, Verified 04/10/16 15:02) Other-Enter Comments Shellfish *RETIRED-07/19/12 [Shellfish] Allergy (Mild, Verified 04/10/16 15:02) Tingling of mouth/throat vitamin B complex and C [From Enviro Stress] Allergy (Mild, Verified 04/10/16 15 :02) Other-Enter Comments vitamin E [From Enviro Stress] Allergy (Mild, Verified 04/10/16 15:02) Other-Enter Comments Home Medications: Medication Instructions Recorded Ranitidine HCl [Zantac] 300 mg PO HS #30 tablet 06/17/15 Potassium Cl [Klor-Con 10 meq (RX)] 10 meq PO DAILY 10/10/15 Spironolactone [Aldactone] 150 mg PO DAILY 10/10/15 buPROPion [Wellbutrin 75mg (*)] 75 mg PO DAILY 10/10/15 Pantoprazole Sodium [Protonix 40mg 40 mg PO DAILY #30 tab 10/14/15 (*)] Acetaminophen [Tylenol ES 500 mg 1,000 mg PO Q6 PRN 04/10/16 (*)] Cholecalciferol Vit D3 [Vitamin D3 2,000 units PO DAILY 04/10/16 2000 units] Herbals/Supplements -Info Only 1 ea PO DAILY 04/10/16 Propranolol HCl [Inderal 20mg (*)] 20 mg PO HS 04/10/16 Vit C/Dl-E AC/Lut/Copper/Znox 1 each PO DAILY 04/10/16 [Preservision Softgel] Lexapro 07/24/16 Xifaxan 07/24/16 Gabapentin [Neurontin 100 MG (*)] 100 mg PO TID #14 cap 01/28/18 Lasix 01/28/18 Lexapro 01/28/18 Lidocaine [Lidoderm] 1 each TP BID #3 adh..patch 01/28/18 Magnesium 01/28/18 Propranolol HCl 01/28/18 Zantac 75 01/28/18 Zofran 01/28/18 Medical Decision Making ED Course/Re-evaluation: CHIEF COMPLAINT: Back pain HISTORY OF PRESENT ILLNESS: The patient is a 52 y/o female with a history of alcohol abuse, cirrhosis, and diabetes complaining of persisting low back pain secondary to an injury 2 weeks ago. Her nudeep-ov-sji fell and she bent over to help her off the floor causing pain in her lower back. Pain occasionally radiates to her right leg. She went to see her PCP and was given an order for a spine x-ray and instructions to use Tylenol for pain. She has been using Tylenol only for pain with no improvement in symptoms. She is primarily requesting pain management. No weakness, saddle paresthesias, incontinence, fever, trauma. REVIEW OF SYSTEMS: A 10 point review of systems was performed and is negative with the exception of the elements mentioned in the history of present illness. PHYSICAL EXAM: HR, BP, O2 Sat, RR. Temp noted General Appearance: Alert, well hydrated, appropriate, jaundiced and hlashlfyjkx-quu-pyzsbzbzy. Head: Atraumatic without scalp tenderness or obvious injury Eyes: Pupils equal, round, reactive to light and accommodation, EOMI, no trauma , no injection. Nose: Atraumatic, no rhinorrhea, clear. Throat: Mucus membranes moist. Neck: Supple, nontender, no lymphadenopathy. Respiratory: No retractions, no distress, no wheezes, and no accessory muscle use. Lungs are clear to auscultation bilaterally. Cardiovascular: Regular rate and rhythm, no murmurs, rubs, or gallops. Good capillary refill all extremities. Gastrointestinal: Abdomen is soft, nontender, non-distended, no masses, no rebound, no guarding, no peritoneal signs. Musculoskeletal: Normal active ROM of all extremities, atraumatic. Neurological: Alert, appropriate, and interactive. The patient has non-focal cranial nerves, motor, sensory, and cerebellar exam. Skin: No rashes, good turgor, no nodules on palpation. Past medical history: History of alcohol abuse, cirrhosis, diabetes, depression , gallbladder stones Past surgical history: Denies Family history: Noncontributory Social history: Lives in [place]. Unemployed. PCP: BORA Gerber DIFFERENTIAL DIAGNOSIS: The differential diagnosis for the patient's back pain included but was not limited to musculoskeletal pain, epidural abscess, herniated disk, spinal fracture, and intra-abdominal causes including urinary system. MEDICAL DECISION MAKING: This is a jaundiced and kopymvfhmxl-lax-dxivzthuq 52 y/o female with cirrhosis who presents with ongoing back pain after bending to help her dxkxmw-eh-fzy off the floor 2 weeks ago. Patient was directed to complete imaging as ordered by her PCP, but did not do this. No signs of acute cauda equina syndrome nor infection and no indication for emergent MRI imaging. Patient's primary concern is pain management right now since she is unable to take narcotics due to abuse history and has been told not to use ibuprofen or aspirin by her doctor. Discussed pain control options and she opted for gabapentin and lidocaine patches. Recommended follow up with her PCP for imaging as directed. Return precautions discussed. She is comfortable with this plan. Departure - Departure Disposition: Home, Routine, Self-Care Clinical Impression: Back pain Qualifiers: Back pain location: low back pain Chronicity: acute Back pain laterality: right Sciatica presence: with sciatica Sciatica laterality: sciatica of right side Qualified Code(s): M54.41 - Lumbago with sciatica, right side Condition: Good Instructions: Gabapentin (By mouth), Lidocaine Patch (On the skin), Back Pain ( ED) Additional Instructions: 1. Take Gabapentin as prescribed for pain. 2. Apply lidocaine patches to back as directed for pain. 3. Follow up with your primary care provider next week. 4. Return for worsening of condition. Referrals: Bridget Lieberman, PAC [Primary Care Provider] - As per Instructions Prescriptions: Gabapentin [Neurontin 100 MG (*)] 100 mg PO TID #14 cap Lidocaine [Lidoderm] 1 each TP BID #3 adh..patch Report Scribed for: Amish Balderas Report Scribed by: Barbara Bella Date of Report: 01/28/18 Time of Report: 20:41
[2018-01-28] MEDS ORDERED: GABAPENTIN 100 MG CAP PO ONE (20:43)
[2018-01-28] MEDS ORDERED: LIDOCAINE 4%/MENTHOL 1% PATCH TD ONE (20:43)
[2018-01-28] MEDS ORDERED: PATCH REMOVAL 1 EA PATCH TD SCH (21:00)
== END 2018-01-28 20:54 | disposition home or self-care (01) ==
DX: M54.41 Lumbago with sciatica, right side (principal); F17.200 Nicotine dependence, unspecified, uncomplicated; E11.9 Type 2 diabetes mellitus without complications; Z91.010 Allergy to peanuts

== ENCOUNTER 2018-01-30 14:08 | Inpatient (IN) | payer MEDICAID ==
--- NOTE | 2018-01-30 14:47 | EDPHY ---
HPI/HX/ROS/PE/MDM Narrative: CHIEF COMPLAINT: "I injured my back 2 weeks ago" HPI: The patient is a 52 y/o female arriving with an acquaintance complaining of lumbar back pain after bending over to crab picker her zynzye-mm-htz two weeks ago. She has a history of alcohol abuse, cirrhosis, and diabetes and is currently on the liver transplant list. She was evaluated by her PCP for this pain and advised to use Tylenol and was given a script for x-ray imaging that she did not complete. She came to the ED 2 days ago for the same pain and was prescribed Gabapentin and lidocaine patches and advised to follow up with her PCP. She says she has been using these medications with no improvement and now feels the pain is worsening. Her pain is exacerbated by sitting and walking and occasional radiates down her right leg. No saddle paresthesias, incontinence, fever, trauma. Her friend thinks she is somewhat more confused than normal. She has an appointment scheduled with her PCP for Thursday. REVIEW OF SYSTEMS: Aside from elements discussed in the HPI, a comprehensive 10-point review of systems was reviewed and is negative. 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 Lives in [place]. Unemployed. PCP: BORA Gerber. Reviewed prior medical records including ED visit 01/28/18 for similar symptoms. PHYSICAL EXAM: General:Patient is alert, chronically-ill appearing, jaundiced, in no acute distress. ENT:Eyes are normal to inspection. ENT inspection normal. Neck: Normal inspection. Full range of motion. Respiratory:No respiratory distress. Breath sounds normal bilaterally. Cardiovascular: Regular rate and rhythm. Strong peripheral pulses. Normal cap refill. Abdomen:The abdomen is nontender to palpation. There are no peritoneal signs. Back: Normal to inspection. No tenderness to palpation. Skin: Normal color. No rash. Warm and dry. Extremities: Normal appearance. Full range of motion. Neuro: Oriented x3. Weakness of right leg otherwise normal motor function. Normal sensory function. ED Course: This is a jaundiced and pzouvjrbcph-qdk-sshweydgw 52 y/o female with end-stage liver disease who presents with a 2-week history of persistent low back pain after bending to assist a family member after a fall and possibly increased confusion today per friend at bedside. She has right leg weakness on exam. No evidence of infection or trauma. Plan for IV, labs, plain films of chest and lumbar spine. 1L IV NS ordered. Labs indicate acute renal failure with creatinine of 4.3 and BUN of 63. Elevated LFTs and potassium 6.4. EKG ordered. The 12 lead EKG was interpreted by myself. Sinus mechanism rate 83. See hard copy and/or "tracemaster" electronic copy for interpretation. Chest x-ray: No signs of trauma. Lumbar x-ray: No signs of trauma. Spoke with hospitalist service. Dr. Herrera accepts admission. He would like me to consult with nephrology as well. Kayexalate ordered. 1628: Consulted with Dr. Matute, nephrology. She requests a [place] and will consult during admission. MDM: This patient presents with continued low back pain, currently of unknown etiology, and is found to be in ARF. She appears chronically ill, and it is unclear if etiology of ARF is related to short term process or gerneral deconditioning. She currently has no infectious symptoms. Her labs display moderate hyperkalemia with no signs of ECG change. She requires admission for further workup and treatment. I see no signs of PNA, septic shock, vertebral fracture or head injury. - Data Points Imaging: I viewed and interpreted images myself Laboratory Results: Laboratory Results 01/30/18 15:10 01/30/18 15:10 01/30/18 01/30/18 01/30/18 16:14 15:10 15:10 WBC 5.59 10^3/uL 10^3/uL (3.80-9.50) RBC 3.13 10^6/uL L 10^6/uL (4.18-5.33) Hgb 11.3 g/dL L g/dL (12.6-16.3) Hct 32.3 % L % (38.0-47.0) MCV 103.2 fL H fL (81.5-99.8) MCH 36.1 pg H pg (27.9-34.1) MCHC 35.0 g/dL g/dL (32.4-36.7) RDW 15.4 % H % (11.5-15.2) Plt Count 34 10^3/uL L 10^3/uL (150-400) MPV 11.4 fL fL (8.7-11.7) Neut % (Auto) Not Reported Lymph % (Auto) Not Reported [place] % (Auto) Not Reported Eos % (Auto) Not Reported Baso % (Auto) Not Reported Nucleat RBC Rel Count 0.0 % % (0.0-0.2) Absolute Neuts (auto) Not Reported Absolute Lymphs (auto) Not Reported Absolute Monos (auto) Not Reported Absolute Eos (auto) Not Reported Absolute Basos (auto) Not Reported Absolute Nucleated RBC 0.00 10^3/uL 10^3/uL (0-0.01) Immature Gran % Not Reported Immature Gran # Not Reported Platelet Estimate Pending Sodium 133 mEq/L L mEq/L (135-145) Potassium 6.4 mEq/L H* mEq/L (3.5-5.2) Chloride 103 mEq/L mEq/L (97-110) Carbon Dioxide 19 mEq/l L mEq/l (22-31) Anion Gap 11 mEq/L mEq/L (8-16) BUN 63 mg/dL H mg/dL (7-23) Creatinine 4.3 mg/dL H mg/dL (0.6-1.0) Estimated GFR 11 Glucose 103 mg/dL H mg/dL (70-100) Calcium 8.7 mg/dL mg/dL (8.5-10.4) Total Bilirubin 5.6 mg/dL H mg/dL (0.1-1.4) Conjugated Bilirubin 3.5 mg/dL H mg/dL (0.0-0.5) Unconjugated Bilirubin 2.1 mg/dL H mg/dL (0.0-1.1) AST 70 IU/L H IU/L (14-46) ALT 53 IU/L H IU/L (9-52) Alkaline Phosphatase 152 IU/L H IU/L (38-126) Total Protein 6.3 g/dL g/dL (6.3-8.2) Albumin 2.6 g/dL L g/dL (3.5-5.0) Lipase 64 IU/L IU/L (23-300) Medications Given: Discontinued Medications Sodium Chloride (Ns) 1,000 mls @ 0 mls/hr IV EDNOW ONE; Wide Open PRN Reason: Protocol Stop: 01/30/18 15:52 Last Admin: 01/30/18 15:55 Dose: 1,000 mls Sodium Polystyrene Sulfonate (Kayexalate) 30 gm PO EDNOW ONE Stop: 01/30/18 16:18 Last Admin: 01/30/18 16:29 Dose: 30 gm General Time Seen by Provider: 01/30/18 14:36 Initial Vital Signs: Initial Vital Signs Temperature (C) 36.9 C 01/30/18 14:22 Heart Rate 92 01/30/18 14:22 Respiratory Rate 16 01/30/18 14:22 Blood Pressure 85/53 L 01/30/18 14:22 O2 Sat (%) 91 L 01/30/18 14:22 O2 Delivery Mode Room Air Allergies/Adverse Reactions: peanut [Peanut] Allergy (Severe, Verified 04/10/16 15:02) Other-Enter Comments codeine Allergy (Intermediate, Verified 01/30/18 17:18) [place] And Derivatives Allergy (Mild, Verified 04/10/16 15:02) Tingling of mouth/throat meperidine HCl [From Demerol] Allergy (Mild, Verified 04/10/16 15:02) Other-Enter Comments minerals [From Enviro Stress] Allergy (Mild, Verified 04/10/16 15:02) Other-Enter Comments Shellfish *RETIRED-07/19/12 [Shellfish] Allergy (Mild, Verified 04/10/16 15:02) Tingling of mouth/throat vitamin B complex and C [From Enviro Stress] Allergy (Mild, Verified 04/10/16 15 :02) Other-Enter Comments vitamin E [From Enviro Stress] Allergy (Mild, Verified 04/10/16 15:02) Other-Enter Comments Home Medications: Medication Instructions Recorded Potassium Cl [Klor-Con 10 meq (RX)] 10 meq PO DAILY@12 10/10/15 buPROPion [Wellbutrin 75mg (*)] 75 mg PO DAILY@12 10/10/15 Acetaminophen [Tylenol ES 500 mg 1,000 mg PO Q6 PRN 04/10/16 (*)] Herbals/Supplements -Info Only 1 ea PO DAILY 04/10/16 Vit C/Dl-E AC/Lut/Copper/Znox 1 cap PO DAILY@12 04/10/16 [Preservision Softgel] Rifaximin [Xifaxan] 550 mg PO BID 07/24/16 Escitalopram Oxalate [Lexapro] 20 mg PO DAILY@12 01/28/18 Furosemide [Lasix 40 MG (*)] 40 mg PO DAILY@12 01/28/18 Ondansetron Odt [Zofran Odt 4 mg 4 mg PO BID PRN 01/28/18 (*)] Propranolol HCl [Inderal 20mg (*)] 20 mg PO DAILY@12 01/28/18 Ranitidine HCl 150 mg PO DAILY PRN 01/28/18 Acetaminophen [Tylenol ES 500 mg 500 mg PO DAILY@01/30/18 (*)] Calcium Carb W/Vit D [Calcium Carb 500 mg PO DAILY@01/30/18 W/Vit D 500/200 (*)] Cholecalciferol Vit D3 [Vitamin D3 1,000 units PO DAILY@01/30/18 (*)] Linagliptin [Tradjenta] 5 mg PO HS 01/30/18 Loperamide HCl [Imodium 2 mg (*)] 2 mg PO DAILY PRN 01/30/18 Omeprazole 40 mg PO DAILY PRN 01/30/18 Omeprazole 40 mg PO DAILY@01/30/18 Ranitidine HCl 300 mg PO HS 01/30/18 Spironolactone [Aldactone 50 MG 100 mg PO DAILY@01/30/18 (RX)] Vitamin B Complex/Folic Acid 0.4 mg PO DAILY@01/30/18 [B-Complex Tablet] metFORMIN HCL [Glucophage 500 mg 500 mg PO BIDMEAL@01/30/18 (*)] traZODone [traZODONE 50MG (*)] 50 mg PO HS 01/30/18 Departure - Departure Disposition: [facility] Inpatient Acute Clinical Impression: Elevated LFTs, Elevated BUN, Hyperkalemia Acute renal failure Qualifiers: Acute renal failure type: unspecified Qualified Code(s): N17.9 - Acute kidney failure, unspecified Cirrhosis Qualifiers: Hepatic cirrhosis type: alcoholic cirrhosis Ascites presence: with ascites Qualified Code(s): K70.31 - Alcoholic cirrhosis of liver with ascites Back pain Qualifiers: Back pain location: low back pain Chronicity: acute Back pain laterality: unspecified Sciatica presence: with sciatica Sciatica laterality: sciatica of right side Qualified Code(s): M54.41 - Lumbago with sciatica, right side Condition: Fair Report Scribed for: Mahesh Hinds Report Scribed by: Barbara Bella Date of Report: 01/30/18 Time of Report: 14:47 Physician Review and Approval Statement: Portions of this note were transcribed by an ED scribe. I personally performed the history, physical exam, and medical decision making; and confirm the accuracy of the information in the transcribed note.
[2018-01-30 15:34] LABS: PLATELET COUNT 34 10^3/uL (150-400)
[2018-01-30] MEDS ORDERED: NS 1,000 ML IV ONE ×2 (15:51→16:29)
[2018-01-30] MEDS ORDERED: SODIUM POLY SULF 15 GM/60 ML BOTTLE PO ONE (16:17)
--- NOTE | 2018-01-30 16:24 | CPEKG ---
Heart Rate: 83 RR Interval: 723 P-R Interval: 144 QRSD Interval: 84 QT Interval: 404 QTC Interval: 475 P [place]: 71 QRS [place]: -34 T Wave [place]: 30 EKG Severity - BORDERLINE ECG - EKG Impression: SINUS RHYTHM EKG Impression: LEFT AXIS DEVIATION Electronically Signed By: Mahesh Hinds 30-Jan-2018 16:35:58
[2018-01-30] MEDS ORDERED: D50W 25 GM/50 ML SYR IVP ONE (16:30)
[2018-01-30] MEDS ORDERED: SODIUM BICARBONATE 150 MEQ in D5W 1,000 ML IV ONE (16:30)
[2018-01-30] MEDS ORDERED: CALCIUM GLUC 10% 1 GM/10 ML VIAL IVP ONE (16:30)
[2018-01-30] MEDS ORDERED: INSULIN REGULAR HUMAN 100 UNIT/ML UNIT IVP ONE (16:30)
[2018-01-30] MEDS ORDERED: SODIUM BICARBONATE 50 MEQ/50 ML SYR ONE (17:05)
[2018-01-30] MEDS ORDERED: SODIUM BICARBONATE 50 MEQ/50 ML SYR IVP ONE ×2 (17:05→17:08)
[2018-01-30] MEDS ORDERED: PROMETHAZINE HCL 25 MG/ML INJ IVP PRN (17:06)
[2018-01-30] MEDS ORDERED: ONDANSETRON DISINTEGRATING 4 MG TAB PO PRN (17:06)
[2018-01-30] MEDS ORDERED: ONDANSETRON 4 MG/2 ML VIAL IVP PRN (17:06)
[2018-01-30] MEDS ORDERED: PROMETHAZINE HCL 25 MG TAB PO PRN (17:06)
[2018-01-30] MEDS ORDERED: ALTEPLASE 2 MG VIAL IVP PRN (17:09)
[2018-01-30] MEDS ORDERED: ACETAMINOPHEN 500 MG TAB PO PRN (17:11)
[2018-01-30] MEDS ORDERED: NON-FORMULARY NEW DRUG (Ranitidine Hcl [Ranitidine Hcl] 150 MG) PO PRN (17:11)
[2018-01-30 17:29] LABS: INR 1.85 (0.83-1.16); PROTIME(PATIENT) 21.4 SEC (12.0-15.0)
[2018-01-30] MEDS ORDERED: D50W 25 GM/50 ML SYR IVP PRN (18:07)
[2018-01-30] MEDS ORDERED: FAMOTIDINE 20 MG TAB PO PRN (18:36)
--- NOTE | 2018-01-30 19:20 | PDGENHP ---
History and Physical - Chief Complaint Acute back pain - History of Present Illness Primary care provider: [facility] Primary road conductor: Dr. Barbara Young HPI: This 2-year-old female presenting with acute back pain located in the lower back, exacerbated by getting out of bed or ambulating up stairs, with some associated subsequent confusion, total body discomfort, nausea, short-term memory loss. Patient reports that she originally experienced her lower back pain approximately 2 weeks ago after sustaining which she thought was a muscular strain when she caught an elderly person to help prevent them from falling. After she engaged in this activity, she began experiencing acute lower back pain herself. In the setting of this pain, she is barely got out of bed, has not engage in much oral intake, despite receiving assistance from her boyfriend. She has attempted to continue taking her own home medications but does endorse that over the past 2 weeks her memory regarding all of the events has begun to become somewhat poor. She was brought to the emergency department by her boyfriend for this issue. In the emergency department, her systolic blood pressure was in the 80-90 range, her creatinine was 4.3, her potassium was 6.4, and she received an amp of sodium bicarb, D5 and insulin, calcium gluconate. History Information - Allergies/Home Medication List Allergies/Adverse Reactions: peanut [Peanut] Allergy (Severe, Verified 04/10/16 15:02) Other-Enter Comments codeine Allergy (Intermediate, Verified 01/30/18 17:18) [place] And Derivatives Allergy (Mild, Verified 04/10/16 15:02) Tingling of mouth/throat meperidine HCl [From Demerol] Allergy (Mild, Verified 04/10/16 15:02) Other-Enter Comments minerals [From Enviro Stress] Allergy (Mild, Verified 04/10/16 15:02) Other-Enter Comments Shellfish *RETIRED-07/19/12 [Shellfish] Allergy (Mild, Verified 04/10/16 15:02) Tingling of mouth/throat vitamin B complex and C [From Enviro Stress] Allergy (Mild, Verified 04/10/16 15 :02) Other-Enter Comments vitamin E [From Enviro Stress] Allergy (Mild, Verified 04/10/16 15:02) Other-Enter Comments Home Medications: Potassium Cl [Klor-Con 10 meq (RX)] 10 meq PO DAILY@12 10/10/15 [Last Taken 12:00] buPROPion [Wellbutrin 75mg (*)] 75 mg PO DAILY@10/10/15 [Last Taken 01/29/18 12:00] Acetaminophen [Tylenol ES 500 mg (*)] 1,000 mg PO Q6 PRN 04/10/16 [Last Taken ] Herbals/Supplements -Info Only 1 ea PO DAILY 04/10/16 [Last Taken 01/29/18 12:00 ] Vit C/Dl-E AC/Lut/Copper/Znox [Preservision Softgel] 1 cap PO DAILY@12 04/10/16 [Last Taken 01/29/18 12:00] Rifaximin [Xifaxan] 550 mg PO BID 07/24/16 [Last Taken 01/29/18 23:00] Escitalopram Oxalate [Lexapro] 20 mg PO DAILY@01/28/18 [Last Taken 01/29/18 12:00] Furosemide [Lasix 40 MG (*)] 40 mg PO DAILY@01/28/18 [Last Taken 01/29/18 12: 00] Ondansetron Odt [Zofran Odt 4 mg (*)] 4 mg PO BID PRN 01/28/18 [Last Taken 01/30 09:00] Propranolol HCl [Inderal 20mg (*)] 20 mg PO DAILY@01/28/18 [Last Taken 12:00] Ranitidine HCl 150 mg PO DAILY PRN 01/28/18 [Last Taken Unknown] Acetaminophen [Tylenol ES 500 mg (*)] 500 mg PO DAILY@12 01/30/18 [Last Taken 12:00] Calcium Carb W/Vit D [Calcium Carb W/Vit D 500/200 (*)] 500 mg PO DAILY@01/30 [Last Taken 01/29/18 12:00] Cholecalciferol Vit D3 [Vitamin D3 (*)] 1,000 units PO DAILY@01/30/18 [Last Taken 01/29/18 12:00] Linagliptin [Tradjenta] 5 mg PO HS 01/30/18 [Last Taken 01/29/18 23:00] Loperamide HCl [Imodium 2 mg (*)] 2 mg PO DAILY PRN 01/30/18 [Last Taken Unknown ] Omeprazole 40 mg PO DAILY PRN 01/30/18 [Last Taken 01/29/18 23:00] Omeprazole 40 mg PO DAILY@12 01/30/18 [Last Taken 01/29/18 12:00] Ranitidine HCl 300 mg PO HS 01/30/18 [Last Taken 01/29/18 23:00] Spironolactone [Aldactone 50 MG (RX)] 100 mg PO DAILY@12 01/30/18 [Last Taken 12:00] Vitamin B Complex/Folic Acid [B-Complex Tablet] 0.4 mg PO DAILY@01/30/18 [ Last Taken 01/29/18 12:00] metFORMIN HCL [Glucophage 500 mg (*)] 500 mg PO BIDMEAL@01/30/18 [Last Taken 01/29/18 23:00] traZODone [traZODONE 50MG (*)] 50 mg PO 01/30/18 [Last Taken 01/29/18 23:00] I have personally reviewed and updated: family history, medical history, social history, surgical history - Past Medical History Additional medical history: Alcoholic cirrhosis and end-stage liver disease, currently on the transplant list, sober since 2012. History of err CO bleed, history of hepatic encephalopathy. Recent back injury outlined in HPI, given gabapentin and Lidoderm patch. Diverticulosis. Diabetes - Surgical History Additional surgical history: Esophageal banding October of 2015 - Family History Additional family history: No family history of end-stage liver disease, no recent sick family contacts - Social History Smoking Status: Light smoker Alcohol Use: Sober (Since June of 2013) Drug Use: None Additional social history: Normally independent in her ADLs, lives with boyfriend and his mother Review of Systems Review of Systems: ROS: 10pt was reviewed & negative except for what was stated in HPI & below Constitutional: Reports: chills, weakness, other (Total body pain) Gastrointestinal: Reports: nausea Muscolosketal: Reports: back pain Neurological: Reports: other (Confusion, poor memory) Physical Exam Physical Exam: Temp Pulse Resp BP Pulse Ox 36.6 C 96 21 H 112/61 93 01/30/18 18:25 01/30/18 18:25 01/30/18 18:25 01/30/18 18:25 01/30/18 18:25 O2 (L/minute) 94 Constitutional: no apparent distress, not in pain, chronically ill appearing, uncomfortable Eyes: PERRL, EOMI, icteric sclera Ears, Nose, Mouth, Throat: hearing normal, other (Tacky mucous membranes) Cardiovascular: systolic murmur (1/6 at the sternum and apex), edema (Trace bilateral lower extremity), No irregularly irregular, No tachycardia Respiratory: no respiratory distress, clear to auscultation, reduced air movement (Bilateral bases), No rhonchi Gastrointestinal: normoactive bowel sounds, soft, non-tender abdomen, distension (Mild), other (Hepatomegaly) Skin: other (Jaundice, intermittent ecchymoses) Neurologic: AAOx3, sensation intact bilaterally, weakness (Bilateral lower extremities with 4/5 motor strength), asterixes, No facial droop Psychiatric: not anxious, flat affect, poor memory, other (Concentration 3/7), No agitated Lab Data & Imaging Review 01/30/18 15:10 01/30/18 19:30 WBC 5.59 10^3/uL (3.80-9.50) 01/30/18 15:10 RBC 3.13 10^6/uL (4.18-5.33) L 01/30/18 15:10 Hgb 11.3 g/dL (12.6-16.3) L 01/30/18 15:10 Hct 32.3 % (38.0-47.0) L 01/30/18 15:10 MCV 103.2 fL (81.5-99.8) H 01/30/18 15:10 MCH 36.1 pg (27.9-34.1) H 01/30/18 15:10 MCHC 35.0 g/dL (32.4-36.7) 01/30/18 15:10 RDW 15.4 % (11.5-15.2) H 01/30/18 15:10 Plt Count 34 10^3/uL (150-400) L 01/30/18 15:10 MPV 11.4 fL (8.7-11.7) 01/30/18 15:10 Neut % (Auto) Not Reported 01/30/18 15:10 Lymph % (Auto) Not Reported 01/30/18 15:10 [place] % (Auto) Not Reported 01/30/18 15:10 Eos % (Auto) Not Reported 01/30/18 15:10 Baso % (Auto) Not Reported 01/30/18 15:10 Nucleat RBC Rel Count 0.0 % (0.0-0.2) 01/30/18 15:10 Absolute Neuts (auto) Not Reported 01/30/18 15:10 Absolute Lymphs (auto) Not Reported 01/30/18 15:10 Absolute Monos (auto) Not Reported 01/30/18 15:10 Absolute Eos (auto) Not Reported 01/30/18 15:10 Absolute Basos (auto) Not Reported 01/30/18 15:10 Absolute Nucleated RBC 0.00 10^3/uL (0-0.01) 01/30/18 15:10 Immature Gran % Not Reported 01/30/18 15:10 Seg Neutrophils % 78 % 01/30/18 15:10 Band Neutrophils % 13 % 01/30/18 15:10 Lymphocytes % 8 % 01/30/18 15:10 Monocytes % 1 % 01/30/18 15:10 Immature Gran # Not Reported 01/30/18 15:10 Absolute Seg Neuts 4.36 10^/uL (1.70-6.50) 01/30/18 15:10 Absolute Band Neuts 0.73 10^3/uL (0.00-0.70) H 01/30/18 15:10 Absolute Lymphocytes 0.45 10^3/uL (1.00-3.00) L 01/30/18 15:10 Absolute Monocytes 0.06 10^3/uL (0.30-0.80) L 01/30/18 15:10 RBC/WBC/PLT Morphology NORMAL (NORMAL) 01/30/18 15:10 Platelet Estimate DECREASED (ADEQ) L 01/30/18 15:10 PT 21.4 SEC (12.0-15.0) H 01/30/18 15:10 INR 1.85 (0.83-1.16) H 01/30/18 15:10 APTT 38.6 SEC (23.0-38.0) H 01/30/18 15:10 Sodium 133 mEq/L (135-145) L 01/30/18 15:10 Potassium 6.4 mEq/L (3.5-5.2) H* 01/30/18 15:10 Chloride 103 mEq/L (97-110) 01/30/18 15:10 Carbon Dioxide 19 mEq/l (22-31) L 01/30/18 15:10 Anion Gap 11 mEq/L (8-16) 01/30/18 15:10 BUN 63 mg/dL (7-23) H 01/30/18 15:10 Creatinine 4.3 mg/dL (0.6-1.0) H 01/30/18 15:10 Estimated GFR 11 01/30/18 15:10 Glucose 103 mg/dL (70-100) H 01/30/18 15:10 POC Glucose 107 mg/dL (70-100) H 01/30/18 18:35 Calcium 8.7 mg/dL (8.5-10.4) 01/30/18 15:10 Total Bilirubin 5.6 mg/dL (0.1-1.4) H 01/30/18 15:10 Conjugated Bilirubin 3.5 mg/dL (0.0-0.5) H 01/30/18 15:10 Unconjugated Bilirubin 2.1 mg/dL (0.0-1.1) H 01/30/18 15:10 AST 70 IU/L (14-46) H 01/30/18 15:10 ALT 53 IU/L (9-52) H 01/30/18 15:10 Alkaline Phosphatase 152 IU/L (38-126) H 01/30/18 15:10 Total Protein 6.3 g/dL (6.3-8.2) 01/30/18 15:10 Albumin 2.6 g/dL (3.5-5.0) L 01/30/18 15:10 Lipase 64 IU/L (23-300) 01/30/18 16:14 Patient ABO/Rh B POSITIVE 01/30/18 17:35 Visualized and Interpreted Chest x-ray results: Yes Chest X-Ray results: other (Left atelectasis) Visualized and Interpreted EKG results: Yes EKG Interpretation: Positive for: other (T-wave inversion in lead V2, non peaked T-waves) Assessment & Plan Assessment: 52-year-old female presents with acute renal failure and acute severe hyperkalemia in the setting of end-stage liver disease Plan: 1. Acute renal failure. Evidenced by creatinine 4.3, BUN 63 and subsequent hyperkalemia, most likely secondary to ongoing use of Lasix, Aldactone in the setting of poor oral intake and possibly hypoperfusion in the setting of low baseline blood pressure from end-stage liver disease with systolic blood pressures in the 80s -attempt to improve renal perfusion with normal saline, albumin and monitor urine output with De Leon catheter -get urine studies -hold diuretics -discussed with Nephrology, renal consultation appreciated -no indication for renal placement therapy at this time 2. Acute metabolic acidosis. Most likely secondary to uremia + lactic acidosis , tx w/ IVF and volume expansion -continue monitor closely -serum lactic acid level will most likely experienced prolonged clearance given her end-stage liver disease -patient does not currently have any infectious evidence of sepsis but will check blood cultures given her high risk of infection in the setting of end- stage liver disease 3. Acute hyperkalemia. Severe, secondary to acute renal failure and concomitant use of Aldactone with supplemental potassium -discussed with Dr. Matute, she recommended dosing D5/Insulin + CaGluc + amp Bicarb and rechecking labs in 4hrs -will repeat labs at 1 a.m. -s/p 1 dose kayexelate 4. Hypotension. Acute on chronic, patient most likely has low baseline in the setting of end-stage liver disease secondary to her poor oncotic pressure with chronically low serum albumin level -patient is acutely hypo perfusing with an elevated lactic acid level 3.4, give 2 doses of albumin, continue normal saline, and then repeat lactic acid level at 1:00 a.m., then with a.m. Labs to ensure that it is a clearing and not up trending, which would otherwise require pressors -PICC line to be placed 5. End-stage liver disease. Secondary to alcohol induced cirrhosis, sober since 06/21, on transplant list -at risk for hepatorenal syndrome -will trial the albumin/IVF and gauge effect, but, if ineffective, may need to consider additional therapy -US eval for ascites w/o significant ascites, so SBP less likely -monitor liver panel/CBC -MELD 34 w/ a 65% 90-day mortality risk -60 minutes of critical care time spent at bedside, coordinating care w/ RN and other physicians, specifically addressing issues of ARF and ESLD, patient remains critically ill and high risk of worsening morbidity tonight and mortality 6. Hyponatremia. Acute, most likely secondary to renal hypoperfusion in the setting of above, administering IV fluids, continue monitor 7. Acute on chronic hepatic encephalopathy. Characterized as worsening short- term memory, worsening comprehension and confusion, with evidence of some processing delay on exam, most likely secondary to acutely worsening liver function and severe illness resulting in metabolic encephalopathy beyond her baseline hepatic encephalopathy -as needed lactulose -check ammonia level this evening to get baseline -avoid opiates if possible 8. Diabetes mellitus type 2. Hemoglobin A1c 7.3% in 2016, monitor blood sugar level 9. Thrombocytopenia. Chronic, baseline around 50, currently 34,000, requires platelet transfusion prior to PICC line placement Diet. Renal Prophylaxis. High risk patient, SCDs, pharm contraindicated Code. Full per patient, her boyfriend is her MD POA Disposition. Anticipated discharge uncertain this time, anticipated length stay is greater than 48 hr for reasonable medical necessity including acute renal failure with hypotension in the setting of end-stage renal disease, rendering patient critically ill.
--- NOTE | 2018-01-30 19:28 | PDRADPN ---
Radiology Procedure Note Date of Procedure: 01/30/18 Radiologist: Luis Quinonez Anesthesia: Local (Specify) Pre-op Diagnosis: suboptimal access Post-op Diagnosis: same Indication: 3 lumen access requested Procedure: RUE TL-PICC Finding(s): tip of 38cm PICC at cavoatrial junction Inf/Abcess present in the surg proc area at time of surgery?: No EBL: Minimal Complications: none
[2018-01-30] MEDS: NS 1,000 ML IV SCH (20:25)
[2018-01-30] MEDS ORDERED: ALBUMIN 25% 50 ML SOLN IV ONE (20:39)
[2018-01-30] MEDS ORDERED: ALBUMIN 25% 100 ML SOLN IV ONE (20:39)
[2018-01-30] MEDS: PATCH REMOVAL 1 EA PATCH TD SCH (21:00)
[2018-01-30] MEDS ORDERED: NON-FORMULARY NEW DRUG (Ranitidine Hcl [Ranitidine Hcl] 300 MG) PO SCH (21:00)
[2018-01-30] MEDS ORDERED: FAMOTIDINE 20 MG TAB PO SCH (21:00)
--- NOTE | 2018-01-30 21:00 | PDMN ---
Medical Necessity Medical necessity: C./M review: est. > 2 MN LOS patrizia eval and TX of acute - renal failure, metabolic acidosis, hypotension, hyponatremia, hepatic encephalopathy requiring Renal consult, platelet transfusion prior to PICC line placement, ongoing IV Human Albumin, IV fluids, cardiac monitoring, acute inpt PT/OT in SDU, comorbid end stage liver disease secondary to alcohol induced cirrhosis, patient sober since 06/21, is on transplant list, type 2 diabetes, thrombocytopenia per H/P.
[2018-01-30] MEDS ORDERED: NS 500 ML IV ONE (22:20)
[2018-01-30 22:36] LABS: CREATINE KINASE 36 IU/L (0-156)
[2018-01-30] MEDS: RIFAXIMIN 550 MG TAB PO SCH ×2 (23:00→23:29)
[2018-01-30] MEDS: ALBUMIN 25% 100 ML IV SCH (23:00)
[2018-01-30] MEDS ORDERED: ALBUMIN 25% 100 ML IV ONE (23:30)
[2018-01-30] MEDS: INSULIN REGULAR HUMAN 100 UNIT/ML UNIT SC SCH (23:30)
[2018-01-31] MEDS: NOREPINEPHRINE BITARTRATE 4 MG in NS 500 ML IV SCH ×2 (05:17→17:30)
[2018-01-31] MEDS: NS 1,000 ML IV SCH ×2 (05:21→12:03)
[2018-01-31] MEDS: ALBUMIN 25% 100 ML IV SCH ×3 (05:21→17:58)
[2018-01-31] MEDS ORDERED: VANCOMYCIN 1.25 GM in NS 250 ML IV ONE (05:30)
[2018-01-31 05:34] LABS: PLATELET COUNT 31 10^3/uL (150-400)
[2018-01-31] MEDS: LIDOCAINE 4%/MENTHOL 1% PATCH TD SCH ×2 (05:34→09:53)
[2018-01-31 05:39] LABS: INR 1.82 (0.83-1.16); PROTIME(PATIENT) 21.2 SEC (12.0-15.0)
[2018-01-31] MEDS: INSULIN REGULAR HUMAN 100 UNIT/ML UNIT SC SCH ×5 (07:54→22:18)
[2018-01-31] MEDS ORDERED: cefTRIAXone 2 GM in STERILE WATER INJ 20 ML IV SCH (09:00)
[2018-01-31] MEDS: RIFAXIMIN 550 MG TAB PO SCH ×2 (09:58→21:11)
[2018-01-31] MEDS: LACTULOSE 20 GM/30 ML UDCUP PO PRN ×2 (10:02→17:35)
[2018-01-31] MEDS: PANTOPRAZOLE SODIUM 40 MG TAB PO SCH (10:59)
[2018-01-31] MEDS: CHOLECALCIFEROL VIT D3 1,000 UNITS TAB PO SCH (11:10)
[2018-01-31] MEDS: ESCITALOPRAM OXALATE 10 MG TAB PO SCH (11:10)
[2018-01-31] MEDS: buPROPion 75 MG TAB PO SCH (11:11)
[2018-01-31] MEDS: CALCIUM CARB W/VIT D 500 MG TAB PO SCH (11:13)
[2018-01-31] MEDS: PRESERVISION AREDS2 FORMULA EYE VIT 1 EACH PO SCH (11:13)
[2018-01-31] MEDS ORDERED: ACETAMINOPHEN 500 MG TAB PO SCH (12:00)
[2018-01-31] MEDS ORDERED: FOLIC ACID PO SCH (12:00)
[2018-01-31] MEDS ORDERED: ceFAZolin 2 GM/DEXTROSE 100 ML IV SCH (12:00)
[2018-01-31] MEDS ORDERED: ZNOX PO SCH (12:00)
[2018-01-31] MEDS ORDERED: NON-FORMULARY NEW DRUG (Omeprazole [Omeprazole] 40 MG) PO SCH (12:00)
[2018-01-31] MEDS ORDERED: VIT C PO SCH (12:00)
[2018-01-31] MEDS ORDERED: COPPER PO SCH (12:00)
[2018-01-31] MEDS ORDERED: NON-FORMULARY NEW DRUG (Escitalopram Oxalate [Lexapro] 20 MG) PO SCH (12:00)
[2018-01-31] MEDS ORDERED: VITAMIN B COMPLEX 1 EA CAP/TAB PO SCH (12:00)
[2018-01-31] MEDS ORDERED: DL E AC PO SCH (12:00)
[2018-01-31] MEDS ORDERED: LUT PO SCH (12:00)
[2018-01-31] MEDS ORDERED: VITAMIN B COMPLEX PO SCH (12:00)
[2018-01-31] MEDS ORDERED: ceFAZolin 2 GM/SWFI 2 GM/20 ML SYR IVP SCH (12:00)
[2018-01-31] MEDS: VITAMIN B COMPLEX PO SCH (12:09)
--- NOTE | 2018-01-31 12:13 | PDCONSULT ---
Eye Surgeon Note: History and Physical - Chief Complaint Back pain - History of Present Illness The patient is a 52 y/o F with a known h/o ESLD who presented to the ED yesterday with acute onset low back pain that was exacerbated by getting up. She states that she thought she strained it a couple of weeks ago, however, t is getting worse. She has been taking gabapentin and other meds for the pain and reportedly has been somnolent with memory issues recently. In the ED, she had BP's in 80's systolic and was noted to have an MANA with acute hyperkalemia. This am, she is feeling better. Eating breakfast and remembers all of her meds and dosing. Doesn't think she has any symptoms of UTI. History Information - Allergies/Home Medication List peanut [Peanut] Allergy (Severe, Verified 04/10/16 15:02) Other-Enter Comments codeine Allergy (Intermediate, Verified 01/30/18 17:18) [place] And Derivatives Allergy (Mild, Verified 04/10/16 15:02) Tingling of mouth/throat meperidine HCl [From Demerol] Allergy (Mild, Verified 04/10/16 15:02) Other-Enter Comments minerals [From Enviro Stress] Allergy (Mild, Verified 04/10/16 15:02) Other-Enter Comments Shellfish *RETIRED-07/19/12 [Shellfish] Allergy (Mild, Verified 04/10/16 15:02) Tingling of mouth/throat vitamin B complex and C [From Enviro Stress] Allergy (Mild, Verified 04/10/16 15 :02) Other-Enter Comments vitamin E [From Enviro Stress] Allergy (Mild, Verified 04/10/16 15:02) Other-Enter Comments Home Medications: Potassium Cl [Klor-Con 10 meq (RX)] 10 meq PO DAILY@12 10/10/15 [Last Taken 12:00] buPROPion [Wellbutrin 75mg (*)] 75 mg PO DAILY@12 10/10/15 [Last Taken 01/29/18 12:00] Acetaminophen [Tylenol ES 500 mg (*)] 1,000 mg PO Q6 PRN 04/10/16 [Last Taken ] Herbals/Supplements -Info Only 1 ea PO DAILY 04/10/16 [Last Taken 01/29/18 12:00 ] Vit C/Dl-E AC/Lut/Copper/Znox [Preservision Softgel] 1 cap PO DAILY@12 04/10/16 [Last Taken 01/29/18 12:00] Rifaximin [Xifaxan] 550 mg PO BID 07/24/16 [Last Taken 01/29/18 23:00] Escitalopram Oxalate [Lexapro] 20 mg PO DAILY@12 01/28/18 [Last Taken 01/29/18 12:00] Furosemide [Lasix 40 MG (*)] 40 mg PO DAILY@12 01/28/18 [Last Taken 01/29/18 12: 00] Ondansetron Odt [Zofran Odt 4 mg (*)] 4 mg PO BID PRN 01/28/18 [Last Taken 01/30 09:00] Propranolol HCl [Inderal 20mg (*)] 20 mg PO DAILY@01/28/18 [Last Taken 12:00] Ranitidine HCl 150 mg PO DAILY PRN 01/28/18 [Last Taken Unknown] Acetaminophen [Tylenol ES 500 mg (*)] 500 mg PO DAILY@01/30/18 [Last Taken 12:00] Calcium Carb W/Vit D [Calcium Carb W/Vit D 500/200 (*)] 500 mg PO DAILY@01/30 [Last Taken 01/29/18 12:00] Cholecalciferol Vit D3 [Vitamin D3 (*)] 1,000 units PO DAILY@01/30/18 [Last Taken 01/29/18 12:00] Linagliptin [Tradjenta] 5 mg PO HS 01/30/18 [Last Taken 01/29/18 23:00] Loperamide HCl [Imodium 2 mg (*)] 2 mg PO DAILY PRN 01/30/18 [Last Taken Unknown ] Omeprazole 40 mg PO DAILY PRN 01/30/18 [Last Taken 01/29/18 23:00] Omeprazole 40 mg PO DAILY@01/30/18 [Last Taken 01/29/18 12:00] Ranitidine HCl 300 mg PO HS 01/30/18 [Last Taken 01/29/18 23:00] Spironolactone [Aldactone 50 MG (RX)] 100 mg PO DAILY@12 01/30/18 [Last Taken 12:00] Vitamin B Complex/Folic Acid [B-Complex Tablet] 0.4 mg PO DAILY@01/30/18 [ Last Taken 01/29/18 12:00] metFORMIN HCL [Glucophage 500 mg (*)] 500 mg PO BIDMEAL@01/30/18 [Last Taken 01/29/18 23:00] traZODone [traZODONE 50MG (*)] 50 mg PO HS 01/30/18 [Last Taken 01/29/18 23:00] - Past Medical History Alcoholic cirrhosis and end-stage liver disease, currently on the transplant list, sober since 2012. History of err CO bleed, history of hepatic encephalopathy. Recent back injury outlined in HPI, given gabapentin and Lidoderm patch. Diverticulosis. Diabetes - Surgical History Esophageal banding October of 2015 - Family History No family history of end-stage liver disease, no recent sick family contacts - Social History Smoking Status: Light smoker Alcohol Use: Sober (Since June of 2013) Drug Use: None Review of Systems Review of Systems: ROS: 10pt was reviewed & negative except for what was stated in HPI & below Physical Exam Physical Exam: Temp Pulse Resp BP Pulse Ox 38.0 C 86 16 108/54 L 94 01/31/18 08:00 01/31/18 11:00 01/31/18 11:00 01/31/18 11:00 01/31/18 11:00 O2 (L/minute) 6 Gen: A+Ox3, pale HEENT: No jaundice, dry MM Neck: Supple, no thyromegaly CV: Irregular, no murmurs Lungs: CTA b/l, no wheezing Abd: Soft, mildly distended, NT Ext: No edema, pulses intact Skin: No rashes noted Neuro: Non-focal Laboratory Results 01/31/18 05:00 01/31/18 05:00 Imaging: Abd US results reviewed. Assessment/Plan: The patient is a 52 y/o F with a known h/o ESLD who presented to the ED for back pain and was found to have an MANA with hyperkalemia, now with positive blood cultures for MSSA. Etiology may be most likely ATN 2/2 to sepsis vs HRS Type I, or GN such as MPGN. AMNA -Cr 0.8mg/dL on 01/07/18, >4 on presentation now down to 3.3mg/dL -would hold diuretics for now given possible sepsis -may consider albumin for volume resuscitation -urine sodium 57, on lasix -hematuria and proteinuria, will quantify -renal US ordered -will hold on serologies such as Hep panel, cryos, RF, etc for now Hyperkalemia -most likely MANA with dehydration on aldactone and KCL supplement -improved with shift and now making urine -monitor on telemetry with renal diet AGMA -most likely 2/2 to MANA -continue to monitor for now Anemia & thrombocytopenia -most likely 2/2 to ESLD -send iron studies ESLD -follows with GI -currently not drinking -eval for liver txp -on lactulose MSSA with hypotension -getting abx and NS at 150cc/hr -keep MAP>65 -urine cx sent Consult appreciated, will continue to follow. Please contact if ?'s #[phone].
[2018-01-31] MEDS: ceFAZolin 2 GM/SWFI 2 GM/20 ML SYR IVP SCH ×2 (12:45→23:55)
--- NOTE | 2018-01-31 13:38 | GCON ---
[f rep st] CONSULTATION CRITICAL-CARE CONSULTATION DATE OF CONSULTATION: 01/31/2018 HISTORY OF PRESENT ILLNESS: This patient is a 52-year-old female with end-stage liver disease who is on liver transplant list, who was admitted with back pain, mental status changes over the last coupl e of weeks with poor intake. She was found to have acute renal failure with hyperkalemia and hepatic encephalopathy. She subsequently also grew methicillin sensitive Staph aureus blood cultures. Othe r than her poor intake over the last couple weeks, history has really been unremarkable. There have been no procedures or trauma that we are aware. PAST MEDICAL HISTORY: Includes end-stage liver disease due to alcoholic cirrhosis. She has been sob er since 2012. As I said, has been on the transplant list. She has also had GI bleeding, hepatic en cephalopathy in the past, diabetes, diverticulosis. PAST SURGICAL HISTORY: Only includes esophageal banding. SOCIAL HISTORY: She is a current smoker. No current alcohol or IV drug use. FAMILY HISTORY: Noncontributory at this time. MEDICATIONS: Are reviewed and are in [employer]. PHYSICAL EXAM: VITAL SIGNS: She was afebrile but had a blood pressure 105/47, heart rate 91, respir ations 16, oxygen saturation 90% on 5 L. She was also on Levophed. GENERAL: She was somnolent but did answer a few questions quite appropriately. She did have some resting tremor and asterixis. ROJAS NT: Pupils equally round and reactive to light. Nonicteric and noninjected. Mucous membranes moist without erythema or exudate. NECK: Supple, without adenopathy or jugular vein distention. LUNGS: Breath sounds clear to auscultation bilaterally without wheezes, rubs, or rales. HEART: Regular ra te and rhythm without murmurs, rubs, gallops. ABDOMEN: Soft, nontender, nondistended without hepato splenomegaly. No obvious ascites. EXTREMITIES: No clubbing, cyanosis, or edema. NEUROLOGICAL: No table for global somnolence but otherwise nonfocal. SKIN: Warm and dry without evidence of rash. OBJECTIVE DATA: Includes a white count of 4.5, hematocrit 27, platelets 31. Her creatinine when she arrived was 4.3 with a BUN of 63 and potassium 6.4. Basic metabolic panel now shows sodium 138, pot assium 5.1, chloride 108, bicarb 19, BUN 61, creatinine 3.3. She has had a significant amount of uri ne output since that time. LFTs are only mildly elevated down to 48 and 45, respectively. Her proca lcitonin was 6.65. Blood cultures as described above. Urinalysis unremarkable. ASSESSMENT/PLAN: 1. Bacteremia of uncertain etiology. Infectious Disease has seen the patient, has recommended MRI o f her back. She does appear to have some numbness and pain when you move her legs, but no other loca lizing signs there. She is being treated currently with ceftriaxone and vancomycin. We will wait fo r Infectious Disease guidelines in terms of further antibiotic coverage in this situation. 2. Acute renal failure, probably related to her underlying poor intake and ongoing encephalopathy. She has gotten much better with IV fluids. Her hyperkalemia has gotten substantially better without dialysis. She has great urine output. I do not think she is going to need dialysis moving forward. 3. Hypotension. This is probably related to her bacteremia as well as chronic liver disease. A sys tolic pressure of 90 is reasonable target and she is having some ectopy on Levophed, so I would certa inly lower that dose since her renal failure looks a lot better. 4. Hepatic encephalopathy. She is getting rifaximin and should get lactulose as well to try to impr ove her mental status. 5. Pancytopenia, chronically low with platelets. I do not believe she needs any transfusion unless she gets down to less than 10. TIME SPENT: A total of 45 minutes critical care time was required for this patient. /[id number]/MODL
--- NOTE | 2018-01-31 14:40 | ASMTCMCOM ---
CM Note CM Note Notes: 52yr old female admitted for Back pain, End stage liver dis, ARF, Encephalopathy, Hyperkalemia. She has a hx of GIB, Cirrhosis, Esophageal stricture, DM-2. She is a smoker but quit using ETOH in '13. She is on a liver transplant list. Patient has not yet been seen by Therapies. CM to follow for possible discharge needs. Date Signed: 01/31/2018 02:39 PM Electronically Signed By:Tran Calvillo LCSW
--- NOTE | 2018-01-31 14:49 | GCON ---
[f rep st] CONSULTATION INFECTIOUS DISEASE CONSULTATION REFERRING PHYSICIAN: Shaunna Salazar MD REASON FOR CONSULTATION: Staph aureus bacteremia. 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 This back pain has continued to progress and she presents to the emergency room due to persistent pain and abnormal laboratory values on 01/30/2018. Initial labs showed hypotension, acute renal failure of 4.3, hyperkalemia, and patient received aggressive treatment to manage these laboratory disturbances on presentation to the emergency room. In addition, blood cultures were obtained, which rapidly grew MSSA. The patient initially received a dose of vancomycin, but then was started on ceftriaxone 2 g IV daily. The patient is a difficult historian today due to mild hepatic encephalopathy, but does endorse ongoing back pain that is worse with movement, and some numbness in her bilateral lower extremities. She denies any specific injuries to her skin or urinary symptoms prior to her presentation to the emergency room. REVIEW OF SYSTEMS: A complete 10-point review of systems was performed and is negative, except as mentioned in the HPI. ALLERGIES: Multiple allergies, none to antibiotics, which include peanut, citrus, Demerol, shellfish, and vitamins of varying types. HOME MEDICATIONS: She is on potassium supplementation, Wellbutrin, Rifaximin 550 mg twice daily, Lexapro 20 mg daily, Lasix 20 mg daily, Zofran, propranolol , Zantac, Tylenol, Tradjenta 5 mg daily, Imodium, Aldactone 100 mg daily, trazodone 50 mg at night. PAST MEDICAL HISTORY: Cirrhosis due to alcohol. Serologic studies in the computer were reviewed, which showed negative hep B and negative hep C viral loads as recent as 12/29/2015. She has known varices and has undergone banding in October of 2015. She has been sober since 2012. She also has a history of hepatic encephalopathy. SOCIAL HISTORY: Sober since 2012. 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 No drug use. She normally is independent and lives with her boyfriend and mother.No recent travel. FAMILY HISTORY: Negative for liver disease. PHYSICAL EXAM: VITAL SIGNS: T max and current 38, BP 90/73, hearty rate 84, saturation 92% on 6 L, respiratory rate 16-22. GENERAL: This is an ill- appearing, jaundiced woman, not in respiratory distress, somewhat confused. HEENT: She is edentulous. She has jaundice. Her mucous membranes are dry. NECK: She had no meningismus. No lymphadenopathy. CARDIOVASCULAR: Regular rate. Faint systolic murmur. CHEST: Poor inspiratory effort with some scattered crackles at the bases. ABDOMEN: Soft, nontender. No fluid wave. : De Leon was in place with orange urine. EXTREMITIES: No joint swelling. No skin breakdown was noted. BACK: She had significant discomfort with movement, but no point tenderness to the examination of her low back. No skin breakdown was noted. NEUROLOGICAL: Difficult exam, but motor seemed to be intact. The patient was complaining of numbness. LABORATORY: White count 4.5, platelets 31, hematocrit 27, 67% neutrophils, 19% bands. Creatinine 4.3 on admission, baseline is 0.8, today is 3.3 after some hydration. Creatinine clearance is 24, total bilirubin 5.6, AST 70, ALT 53, alkaline phosphatase 127, albumin 2.6. INR 1.8. Blood cultures as per HPI. Two sets with MSSA. Urinalysis showed 3+ blood, 2+ urobilinogen, 3-5 RBCs, 5- 10 WBCs. IMAGING: Abdominal ultrasound showed no ascites. Lumbar x-ray showed fracture at L4. ASSESSMENT AND PLAN: 52-year-old woman with underlying cirrhosis on transplant list at [facility], who presents to the emergency room with back pain and found to have sepsis due to methicillin sensitive Staphylococcus aureus bacteremia with significant bandemia, renal failure, elevated liver function tests and hypotension. Source of bacteremia is not clear. No obvious skin source was identified today. Certainly complicating clinical picture I have concern for endocarditis as well as osteomyelitis/diskitis of the lumbar spine and possible deeper involvement at the level of the spine. 1. Adjust antibiotics to directed therapy against methicillin sensitive Staphylococcus aureus. I do not think it is safe to give this patient nafcillin in light of decompensated liver disease. Therefore, would proceed with renal dosed cefazolin 2 g IV every 12 hours. 2. Due to complaints of lower extremity numbness, I would proceed with noncontrast MRI of the lumbar spine to better delineate if any complications related to bacteremia have evolved at this level, known that we may need to repeat MRI in the future with contrast to completely exclude disease at this level. I am highly suspicious of involvement. 3. Would obtain a transthoracic echocardiogram to evaluate valves. 4. At some point, patient may need her PICC changed once blood cultures have cleared. 5. Would repeat blood cultures after 48 hours of antibiotics. Care was coordinated with Dr. Elio Hernandez. Time was 75 minutes, greater than 50% of time spent with coordination of care, review of illness with the patient and plans for therapy and further workup. Thank you for this consultation. /[id number]/MODL OBED
--- NOTE | 2018-01-31 15:56 | HOSPPROG ---
Hospitalist Progress Note Assessment/Plan: Subjective Follow-up on sepsis septic shock as well as methicillin sensitive Staph aureus bacteremia The patient is quite sedate on exam today but is arousable briefly she is able to mumble some words but not entirely conversant. Her case was reviewed on ICU rounds today. In light of her complaint of back pain as well as Staph bacteremia an MRI of her lumbar spine has been ordered for further evaluation. Objective Vital signs as detailed below On exam, patient is resting comfortably in bed. She is briefly arousable but has a tendency to fall back asleep. No tremor noted. On heart exam, she is regular without any significant murmurs. On lung exam, normal respiratory effort without significant wheezing or crackles. On abdominal exam, I do not it appreciate any significant distention or ascites. Her abdomen is soft nontender nondistended. , De Leon catheter is in place. Extremities, no significant pitting edema appreciated. Skin, no areas of erythema or abscess collection noted. Labs as detailed below. Assessment plan 1. Septic shock- patient is bacteremic with methicillin sensitive Staph aureus and currently hypotensive requiring vasopressor support. Continue with IV fluids and consider bolusing if any trend upward in her vasopressor support needed. The source of her infection is unclear at the current time but we do have concern for potential low back sources she was presenting with low back pain. An MRI of the lumbar spine has been ordered for further evaluation. I appreciate Infectious disease's assistance on the case and continue with the cefazolin as recommended. 2. Bacteremia-culture showing methicillin sensitive Staph aureus. Repeat cultures have been ordered. Source is unclear at the current time. 3. Acute kidney injury-likely hypovolemia and hypotension related. This has improved with IV fluids and vasopressor support. I appreciate Nephrology assistance on the case as well 4. Acute hypoxic respiratory failure-she is requiring small amount of oxygen via nasal cannula. This may be secondary to atelectasis from sedation. Her chest x-ray did show evidence of atelectasis and small effusion. 5. Hyperkalemia-this has improved. She was treated with sodium bicarb insulin and Kayexalate. This appears to be improving along with her kidney function. 6. Hyponatremia-improved with IV fluids. 7. Metabolic acidosis-likely combination of lactic acidosis as well as uremia continue to trend with volume resuscitation. 8. Acute on chronic encephalopathy-likely related to hepatic encephalopathy continue with rifaximin as well as lactulose titrated to 3-4 bowel movements per day. 9. Back pain-this was patient's presenting complaint. MRI of the lumbar spine has been ordered. This was ordered without contrast in light of the acute kidney injury. This may need to be repeated with contrast later. 10. Cirrhosis-patient has some previous and been diagnosed with cirrhosis secondary to alcohol use she has been sober since 2012. Her meld score is measured at 34. She has ongoing follow-up as she is on the transplant list. 11. Diabetes mellitus type 2-reasonable control with a recent hemoglobin A1c measured at 7.3%. She is on a regular insulin sliding scale. 12. Thrombocytopenia-her baseline appears to be somewhere around 50,000. She did receive platelets in anticipation of placement of PICC line. 13. DVT prophylaxis- compression devices. No heparin or Lovenox in light of acute kidney injury and thrombocytopenia. 14. Disposition-patient is a full code status. She is needing ongoing hospitalization none due to the severity of her condition. Objective: Vital Signs Temp Pulse Resp BP Pulse Ox 38.0 C 87 18 108/57 L 92 01/31/18 08:00 01/31/18 14:00 01/31/18 14:00 01/31/18 14:00 01/31/18 14:00 Microbiology 01/30/18 17:45 Blood Panel (PCR) - Final Blood S.aureus Methicillin Suscept. Laboratory Results 01/31/18 05:00 01/31/18 05:00 01/30/18 01/31/18 02/01/18 05:59 05:59 05:59 Intake Total 2852.1 280 Output Total 600 815 Balance 2252.1 -535 PT 21.2 SEC (12.0-15.0) H 01/31/18 05:00 INR 1.82 (0.83-1.16) H 01/31/18 05:00 ICD10 Worksheet Patient Problems: Problems Problem Status Onset Acute renal failure Acute Back pain Acute Cirrhosis Acute Elevated BUN Acute Elevated LFTs Acute Hyperkalemia Acute Abdominal pain Acute GI bleed Acute History of esophageal stricture Acute
[2018-01-31] MEDS ORDERED: AMIODARONE HCL 100 ML IV ONE (18:05)
--- NOTE | 2018-01-31 18:30 | CPEKG ---
Heart Rate: 113 RR Interval: 531 QRSD Interval: 80 QT Interval: 356 QTC Interval: 489 QRS [place]: 2 T Wave [place]: 34 EKG Severity - ABNORMAL ECG - EKG Impression: ATRIAL FIBRILLATION EKG Impression: BORDERLINE T WAVE ABNORMALITIES EKG Impression: BORDERLINE PROLONGED QT INTERVAL EKG Impression: NONSPECIFIC ST_T WAVE ABNORMAILITES Electronically Signed By: Ric Muñoz 02-Feb-2018 14:45:49
--- NOTE | 2018-01-31 18:57 | HOSPPROG ---
Hospitalist Progress Note Assessment/Plan: Additional 35 minutes of critical care time spent for this patient beyond that spent by Dr. 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), heart rhythm irreg irreg to ascultation, shallow breath sounds, poor insp air movement , non-tender abd, no significant LE edema - tele appears to be in Afib w/ intermittent sinus beats (personally interpreted ), and EKG performed stat demonstrates TWI V2 w/ Afib, but no CHRIS or STD - getting trop r/o ischemia, lact to r/o worsening hypoperfusion and to assist w / levophed gtt wean (as levo may be triggering arrhythmia), and replete lytes to check Mg/K/Cr/bicarb - cont supp IVF + albumin given low oncotic pressure, cont levophed given septic shock - cont Abx - give 150mg IV amio now, and will evaluate response, consider amio gtt if remains in rapid afib - get Echo in AM - cont haider and monitor UOP - patient remains critically ill w/ high risk worsening morbidity/mortality Objective: Vital Signs Temp Pulse Resp BP Pulse Ox 99.3 C H 118 H 19 106/61 92 01/31/18 16:00 01/31/18 18:00 01/31/18 18:00 01/31/18 18:00 01/31/18 18:00 Microbiology 01/30/18 17:45 Blood Panel (PCR) - Final Blood S.aureus Methicillin Suscept. Laboratory Results 01/31/18 05:00 01/31/18 05:00 01/30/18 01/31/18 02/01/18 05:59 05:59 05:59 Intake Total 2852.1 3131 Output Total 600 1365 Balance 2252.1 1766 PT 21.2 SEC (12.0-15.0) H 01/31/18 05:00 INR 1.82 (0.83-1.16) H 01/31/18 05:00 ICD10 Worksheet Patient Problems: Problems Problem Status Onset Acute renal failure Acute Back pain Acute Cirrhosis Acute Elevated BUN Acute Elevated LFTs Acute Hyperkalemia Acute Abdominal pain Acute GI bleed Acute History of esophageal stricture Acute
[2018-01-31] MEDS ORDERED: ALBUMIN 25% 100 ML IV SCH (19:16)
[2018-01-31] MEDS ORDERED: FUROSEMIDE 40 MG/4 ML VIAL IVP ONE (20:56)
[2018-01-31] MEDS: DEXMEDETOMIDINE HCL 400 MCG in NS 100 ML IV SCH ×2 (21:10→23:44)
[2018-01-31 21:35] LABS: PLATELET COUNT 31 10^3/uL (150-400)
[2018-01-31] MEDS: PATCH REMOVAL 1 EA PATCH TD SCH (22:18)
[2018-02-01] MEDS: ALBUMIN 25% 100 ML IV SCH ×2 (00:04→06:33)
[2018-02-01] MEDS: HALOPERIDOL LACT 5 MG/ML INJ IVP PRN ×4 (02:05→22:33)
[2018-02-01] MEDS ORDERED: LORazepam 2 MG/ML INJ IVP ONE (02:57)
[2018-02-01] MEDS: DEXMEDETOMIDINE HCL 400 MCG in NS 100 ML IV SCH ×5 (03:19→20:32)
[2018-02-01 05:21] LABS: PLATELET COUNT 22 10^3/uL (150-400)
[2018-02-01] MEDS ORDERED: MAGNESIUM SULF 1 GM/DEXTROSE 100 ML IV ONE (06:23)
[2018-02-01] MEDS ORDERED: POTASSIUM Cl (KCl) 100 ML IV SCH (06:30)
[2018-02-01] MEDS: INSULIN REGULAR HUMAN 100 UNIT/ML UNIT SC SCH ×4 (08:31→22:47)
[2018-02-01] MEDS: LIDOCAINE 4%/MENTHOL 1% PATCH TD SCH (08:33)
[2018-02-01] MEDS: RIFAXIMIN 550 MG TAB PO SCH ×2 (08:33→08:38)
--- NOTE | 2018-02-01 09:41 | SOAPPROG ---
SOAP Progress Note Assessment/Plan: Assessment/Plan: MANA: likely prerenal vs ATN in setting of diuretics and hypotension on top of likely hepatorenal hemodynamics. Cr improving, down from >4 to 2.0 today, good UOP, lytes ok. - No need for HD. - Will hold albumin. - Will continue to monitor. - Avoid hypotension and nephrotoxins. Shock: BP doing well on Levophed, will monitor. Metabolic acidosis: due to lactic acidosis and MANA, pH ok yesterday, will continue to monitor. Anemia: no need for epo, will continue to monitor. Subjective: Pt had increasing respiratory distress overnight with increasing O2 requirements , was placed on BiPAP overnight and now back to oxymask at 6L. Pt is quite agitated and confused. Objective: Vital Signs Temp Pulse Resp BP Pulse Ox 36.8 C 78 24 H 111/69 90 L 02/01/18 08:00 02/01/18 08:00 02/01/18 08:00 02/01/18 08:00 02/01/18 08:00 Microbiology 01/30/18 17:45 Blood Panel (PCR) - Final Blood S.aureus Methicillin Suscept. Laboratory Results 02/01/18 05:00 02/01/18 05:00 01/31/18 02/01/18 02/02/18 05:59 05:59 05:59 Intake Total 2852.1 4253 Output Total 600 2915 125 Balance 2252.1 1338 -125 PT 21.2 SEC (12.0-15.0) H 01/31/18 05:00 INR 1.82 (0.83-1.16) H 01/31/18 05:00 General: awake, oriented to self only Eyes: EOMI, PERRL OP: dry mucous membranes CV: RRR Resp: CTA bilat, nonlabored respirations on oxymask Abd: Soft, NT Ext: no edema BLE Neuro: CN II-XII Grossly intact Psych: agitated ICD10 Worksheet Patient Problems: Problems Problem Status Onset Acute renal failure Acute Back pain Acute Cirrhosis Acute Elevated BUN Acute Elevated LFTs Acute Hyperkalemia Acute Abdominal pain Acute GI bleed Acute History of esophageal stricture Acute
--- NOTE | 2018-02-01 10:33 | GCON ---
[f rep st] CONSULTATION GI CONSULTATION REFERRING PHYSICIAN: Paul Herrera MD REASON FOR CONSULTATION: Cirrhosis. HISTORY OF PRESENT ILLNESS: The patient is a 52-year-old female who is followed by Dr. Patricia Young at [facility], and by [facility], for chronic alcoholism and cirrhosis, with end-stage liver failure, portal hypertension and history of hepatic encephalopathy. She is apparently on liver transplant list. She has been sober since 2012. She had a recent back injury treated with Lidoderm patch and gabapentin, and was admitted on 01/30/2018, with acute back pain of the lower back. She has displayed mental confusion during this admission, and was noted to have acute renal failure with a creatinine 4.3 and a potassium of 6.4 on admission. MEDICATIONS: Prior to admission, included Xifaxan 550 mg p.o. b.i.d., Lexapro 20 mg p.o. daily, furosemide 40 mg p.o. daily, Zofran 4 mg p.o. b.i.d. p.r.n., Inderal 20 mg p.o. daily, ranitidine 150 mg p.o. p.r.n. heartburn, omeprazole 40 mg p.o. daily, Aldactone 100 mg p.o. daily, metformin 500 mg p.o. b.i.d. with meals, trazodone 50 mg p.o. q.h.s., Tradjenta 5 mg p.o. q.h.s., loperamide 2 mg p.o. p.r.n. diarrhea, calcium carbonate 500/200 p.o. daily. Vitamin C/D1-E/ lut/copper 1 tab daily. Herbal supplements daily. Wellbutrin 75 mg p.o. daily and potassium chloride 10 meq p.o. daily. ALLERGIES: Peanut, codeine, Demerol, shellfish, vitamin B complex and vitamin E (from [employer]). PAST MEDICAL HISTORY: Significant for alcoholic cirrhosis with end stage liver disease, portal hypertension, on transplant list; history of hepatic encephalopathy; chronic back pain; diabetes mellitus. She does have additional history of esophageal variceal banding in 2014. FAMILY HISTORY: Negative for liver disease or GI malignancies. SOCIAL HISTORY: The patient has been an intermittent smoker. She has been a chronic alcohol consumer until she abstained in June of 2013. REVIEW OF SYSTEMS: Negative for comprehensive review of systems, other than back pain as noted above. EXAMINATION: VITAL SIGNS: Temperature was temperature was 37.4 Celsius, pulse was 88, blood pressure 104/66, respiratory rate 20, O2 saturation 92% on 6 L. GENERAL: A well-developed, well-nourished female, lethargic and obtunded, lying in bed. INTEGUMENT: Jaundiced. HEENT: Head is atraumatic, normocephalic. Pupils equal, round, reactive to light. EOMs intact. Sclerae icteric. Nares patent. Mucous membranes moist. Dentition fair. NECK: Supple. Trachea midline. LYMPHATICS: No cervical or axillary adenopathy. LUNGS: Clear to percussion and auscultation. CARDIOVASCULAR: Regular rhythm rate. Normal S1, S2 without murmur. Peripheral pulses decreased bilaterally. +1 pedal edema. GASTROINTESTINAL: Abdomen mildly distended. Positive bowel sounds. No liver or spleen tip palpable. No fluid wave noted. No shifting dullness. No rebound tenderness. EXTREMITIES: Without deformity. NEURO: Patient was obtunded. Did answer simple questions, but was quite lethargic. Moved all 4 extremities. LABS: Hemoglobin 9.6, hematocrit 27.8, MCV 103, RDW 15.9, platelets 31,000. Pro time 21.2, INR 1.82. Electrolytes normal with the exception of CO2 of 18, BUN 52, creatinine 2.3, glucose 184, phosphorus 1.9, total bilirubin 5.7, conjugated bilirubin 3.6, unconjugated 2.1, AST 48, ALT 45, ALP 113, ammonia elevated at 41, albumin 2.6. Abdominal ultrasound showed no ascites, and long spleen measuring 18 cm. IMPRESSION: 1. End-stage liver failure secondary to chronic alcohol abuse, now abstained for 5 years. 2. Thrombocytopenia secondary to #1. 3. Portal systemic encephalopathy. 4. Acute renal failure. 5. History of esophageal varices without recent bleed. 6. Chronic back pain. 7. Diabetes mellitus. RECOMMENDATIONS: 1. Continue Xifaxan chronically. 2. Electrolyte and fluid management per hospitalist and Nephrology. 3. No indication for either SBP prophylaxis or EGD at this time. 4. We will follow with you. /[id number]/MODL MTDD
--- NOTE | 2018-02-01 10:49 | PCMIDPN ---
Assessment/Plan: Assessment: MSSA bacteremia and sepsis-unclear source. 2D echo completed and read is pending. Non contrasted MRI of the lumbar spine yesterday did not show any significant pathology indicating diskitis or epidural collection. Repeat blood cultures are negative thus far. Clinically the patient still exhibits moderate to severe signs of encephalopathy. Platelet count is chronically low but lower acutely. Currently renally adjusted cefazolin. Will continue this antibiotic monotherapy for now. Plan: 1. Continue monotherapy with the cefazolin. 2. Follow up on 2D echocardiogram result. 3. Follow up repeat blood cultures. 4. Follow clinical course. 02/01/18 10:46 Subjective: Patient is resting in her hospital bed. She is easily agitated. She is on BiPAP very to relative hypoxemia overnight. No fevers or chills. No Rash. Objective: Cefazolin # 2 Vital Signs Temp Pulse Resp BP Pulse Ox 36.8 C 83 20 129/60 H 92 02/01/18 08:00 02/01/18 10:00 02/01/18 10:00 02/01/18 10:00 02/01/18 10:00 Microbiology 01/30/18 17:45 Blood Panel (PCR) - Final Blood S.aureus Methicillin Suscept. Laboratory Results 02/01/18 05:00 02/01/18 05:00 01/31/18 02/01/18 02/02/18 05:59 05:59 05:59 Intake Total 2852.1 4253 Output Total 600 2915 125 Balance 2252.1 1338 -125 C-Reactive Protein 87.2 mg/L (<10.0) H 02/01/18 05:00 - Physical Exam General Appearance: WD/WN, alert, no apparent distress (But easily), non-toxic Respiratory: lungs clear, other (On BiPAP.), No normal breath sounds, No respiratory distress Cardiac/Chest: regular rate, rhythm, No bradycardia, No tachycardia, No systolic murmur (But plenty of extraneous sounds secondary to BiPAP) Extremities: non-tender, normal inspection Skin: normal color, warm/dry, No rash Neuro/Psych: alert ICD10 Worksheet Patient Problems: Problems Problem Status Onset Acute renal failure Acute Back pain Acute Cirrhosis Acute Elevated BUN Acute Elevated LFTs Acute Hyperkalemia Acute Abdominal pain Acute GI bleed Acute History of esophageal stricture Acute
[2018-02-01] MEDS ORDERED: INSULIN REGULAR HUMAN 100 UNIT in NS 100 ML IV SCH (11:00)
--- NOTE | 2018-02-01 12:02 | ECHO ---
[email or web address] [address] [address] Main: [phone] Fax: [email or web address] Echocardiogram Name: JOSE G DUMONT MR#: [id number] Study Date: 02/01/2018 Study Time: 07:44 AM Date of : 1965 Age: 52 year(s) Height: 172.7 cm (68 in.) Weight: 86.18 kg (190 lb.) BSA: 2 m2 Gender: Female Examination: Echo Indication: Cirrhosis, GI Bleed, Sepsis, MSSA Bactrermia Image Quality: Contrast: Requested by: Sandy Balderrama BP: 117 mmHg/58 mmHg Heart Rate: Rhythm: Normal sinus rhythm Indication: Cirrhosis, GI Bleed, Sepsis, MSSA Bactrermia Procedure Staff Contact Center Agent: Teddy Fuentes RDCS Reading Physician: Solomon Marvin MD Requesting Provider: Conclusions: Normal global systolic LV function. EF is 73 %. Mild mitral valve regurgitation is present. Mild tricuspid regurgitation is present. The pulmonary artery pressure is moderately to severely increased. Measurements: Chambers Valvular Assessment AV/MV Valvular Assessment TV/PV Normal Normal Normal Name Value Range Name Value Range Name Value Range Ao Karen (MM): 2.3 cm (2.2 cm-3.7 AV Vmax: 1.74 m/s (1 m/s-1.7 TR Vmax: 3.79 mm/s ( - ) cm) m/s) TR PGmax: 57 mmHg ( - ) IVSd (2D): 0.9 cm (0.6 cm-1.1 AV maxP mmHg ( - ) syst. PAP: 72 mmHg ( - ) cm) AV meanP mmHg ( - ) PV Vmax: 0.98 m/s (0.6 m/s-0.9 LVDd (2D): 5.2 cm (3.9 cm-5.3 MV E Vmax: 1.31 m/s ( - ) m/s) cm) MV A Vmax: 0.82 m/s ( - ) PV PGmax: 4 mmHg ( - ) LVDs (2D): 3.0 cm (2.1 cm-4 MV E/A: 1.60 ( - ) cm) MV meanP mmHg ( - ) LVPWd (2D): 1.0 cm ( - ) LVEF (2D): 73 (>=54 %) Continued Measurements: Chambers Valvular Assessment AV/MV Valvular Assessment TV/PV Name Value Name Value Name Value LADs Lon.8 cm MV Annulus: 3.1 cm CVP (est.): 15 mmHg LA Area: 17.6 cm2 MV E' Septal: 0.08 m/s LA Volume: 52 ml MV E/E' Septal: 16.20 LA Volume Index: 26.0 ml/m2 MV E/E' Lateral: 12.80 MV VTI: 52.10 cm Patient: JOSE G DUMONT Study Date: 02/01/2018 Page 1 of 2 07:44 AM MR ERO: 0.110 cm2 MR PISA radius: 5 mm MR Reg. Volume: 18 ml MR Reg. Fraction: 5 % Findings: Left Ventricle: Normal size left ventricle. No LV hypertrophy. Normal global systolic LV function. EF is 73 %. No regional wall motion abnormality. Normal diastolic LV function. Right Ventricle: Normal size right ventricle. Normal RV function. Left Atrium: The left atrium is normal in size. Right Atrium: The right atrium is normal in size. Mitral Valve: The mitral valve is normal in appearance. Mild mitral valve regurgitation is present. Aortic Valve: The aortic valve is tri-leaflet. Mild aortic cusp calcification is noted. There is focal calcification on the non-aortic valve cusp.. Tricuspid Valve: The tricuspid valve appears normal. Mild tricuspid regurgitation is present. The pulmonary artery pressure is moderately to severely increased. Pulmonic Valve: The pulmonic valve is normal in appearance and function. Aorta: The aorta is normal. IVC: The IVC is dilated. Pericardium: No pericardial effusion. (No Signature Object) Patient: JOSE G DUMONT Study Date: 02/01/2018 Page 2 of 2 07:44 AM [id number]
--- NOTE | 2018-02-01 13:00 | SOAPPROG ---
SOAP Progress Note Assessment/Plan: Assessment: 1. 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 Plan: 1. Continue lactulose and Xifaxan. 2. Will sign off today as underlying issue at this time is not the patient's liver disease. Cordell Scherer MD 02/01/18 12:57 Subjective: CC: PSE. Interval HPI: Patient obtunded with occasional agitation. On respiratory assistance with C-PAP. Objective: Vital Signs Temp Pulse Resp BP Pulse Ox 36.8 C 83 20 129/60 H 92 02/01/18 08:00 02/01/18 10:00 02/01/18 10:00 02/01/18 10:00 02/01/18 10:00 Microbiology 01/30/18 17:45 Blood Panel (PCR) - Final Blood S.aureus Methicillin Suscept. Laboratory Results 02/01/18 05:00 02/01/18 05:00 01/31/18 02/01/18 02/02/18 05:59 05:59 05:59 Intake Total 2852.1 4253 Output Total 600 2915 125 Balance 2252.1 1338 -125 PT 21.2 SEC (12.0-15.0) H 01/31/18 05:00 INR 1.82 (0.83-1.16) H 01/31/18 05:00 Physical Exam - Physical Exam General Appearance: obtunded Respiratory: lungs clear, normal breath sounds Cardiac/Chest: regular rate, rhythm Abdomen: normal bowel sounds, non-tender, soft Skin: warm/dry ICD10 Worksheet Patient Problems: Problems Problem Status Onset Acute renal failure Acute Back pain Acute Cirrhosis Acute Elevated BUN Acute Elevated LFTs Acute Hyperkalemia Acute Abdominal pain Acute GI bleed Acute History of esophageal stricture Acute
[2018-02-01] MEDS ORDERED: FUROSEMIDE 40 MG/4 ML VIAL IVP ONE (13:07)
--- NOTE | 2018-02-01 13:07 | HOSPPROG ---
Hospitalist Progress Note Assessment/Plan: Assessment & plan # Septic shock secondary to MSSA bacteremia (hypotension, tachycardia, tachypnea , MANA). On low dose Levophed. Source unclear. Presented with back pain, MRI L -spine neg for diskitis/osteo/abscess though this was without contrast. Lactate persists elevated, concerning for lack of source control, though ?poor clearance with cirrhosis. -cont Cefazolin per ID -echo today neg for vegetation -repeat BCxs pending -wean pressors as able -trend lactate -consider repeating MRI with contrast if back pain persists or sepsis physiology not resolving (Cr still >1.5 precludes contrast study today) # Acute hypoxic respiratory failure - O2 requirement up to 15 LPM overnight, now on bipap. Wt up 3+ kg, net positive. S/P 40 mg IV Lasix last night. CXR pers reviewed/interp, c/w increasing pulmonary edema, possibly hastened by rapid A fib last night. -repeat Lasix now, IVF's stopped -monitor I&O's, daily weights -cont bipap # A fib - brief, converted to NSR after one bolus of Amiodarone. No known h/o A fib, likely precipitated by acute illness. TSH normal. Valves ok on echo. -cont to monitor # Elevated troponin - mild bump in trop, likely strain in setting of sepsis and brief A fib -trend to peak # Pulmonary hypertension - PAP 72 on echo, unclear if acute or chronic. ?2/2 acute pulmonary edema process. Discussed with pulm. # Acute kidney injury - likely pre-renal / sepsis related. Improved with IVF's and vasopressor support. # Hyperkalemia- in setting of MANA, resolved. # Hyponatremia - improved with IV fluids. # Metabolic acidosis - likely combination of lactic acidosis as well as uremia. # Acute on chronic encephalopathy-likely related to hepatic encephalopathy -continue Rifaximin per NG tube -schedule Lactulose per NG tube # Back pain - this was patient's presenting complaint. Non-con MRI of lumbar spine neg for abscess, but subacute L4 compression fracture noted. # L4 compression fracture - subacute by MRI, reassess pain factor once her infectious status is improved # Cirrhosis- MELD score 34. She is on transplant list. # Diabetes mellitus type 2 - recent hemoglobin A1c measured at 7.3%. -cont SSI # Thrombocytopenia-her baseline appears to be somewhere around 50,000. S/P plt transfusion for purpose of PICC line placement. No bleeding. # Agitation - prn haldol # DVT prophylaxis- compression devices. No heparin or Lovenox in light of acute kidney injury and thrombocytopenia. # Disposition- cont inpt / ICU. 40 minutes critical care. Subjective: Pt is agitated. Not making sense. No fevers. Denies pain. Currently on bipap. Objective: Vital Signs Temp Pulse Resp BP Pulse Ox 36.8 C 83 20 129/60 H 92 02/01/18 08:00 02/01/18 10:00 02/01/18 10:00 02/01/18 10:00 02/01/18 10:00 Microbiology 01/30/18 17:45 Blood Panel (PCR) - Final Blood S.aureus Methicillin Suscept. Laboratory Results 02/01/18 05:00 02/01/18 05:00 01/31/18 02/01/18 02/02/18 05:59 05:59 05:59 Intake Total 2852.1 4253 Output Total 600 2915 125 Balance 2252.1 1338 -125 PT 21.2 SEC (12.0-15.0) H 01/31/18 05:00 INR 1.82 (0.83-1.16) H 01/31/18 05:00 - Physical Exam Constitutional: no apparent distress Eyes: PERRL Ears, Nose, Mouth, Throat: moist mucous membranes Cardiovascular: regular rate and rhythym Respiratory: no respiratory distress, reduced air movement, inspiratory crackles Gastrointestinal: normoactive bowel sounds, soft, non-tender abdomen Skin: warm Musculoskeletal: other (moves all 4 ext) Psychiatric: encephalopathic ICD10 Worksheet Patient Problems: Problems Problem Status Onset Acute renal failure Acute Back pain Acute Cirrhosis Acute Elevated BUN Acute Elevated LFTs Acute Hyperkalemia Acute Abdominal pain Acute GI bleed Acute History of esophageal stricture Acute
[2018-02-01] MEDS ORDERED: LACTULOSE 20 GM/30 ML UDCUP PO SCH (13:18)
[2018-02-01] MEDS: PRESERVISION AREDS2 FORMULA EYE VIT 1 EACH PO SCH (13:21)
[2018-02-01] MEDS: ESCITALOPRAM OXALATE 10 MG TAB PO SCH (13:25)
[2018-02-01] MEDS: CHOLECALCIFEROL VIT D3 1,000 UNITS TAB PO SCH (13:25)
[2018-02-01] MEDS: buPROPion 75 MG TAB PO SCH (13:25)
[2018-02-01] MEDS: CALCIUM CARB W/VIT D 500 MG TAB PO SCH (13:26)
[2018-02-01] MEDS: LANSOPRAZOLE SUSP 30MG/10ML UDSYR (Adult) TUBE SCH (13:27)
[2018-02-01] MEDS: ceFAZolin 2 GM/SWFI 2 GM/20 ML SYR IVP SCH ×2 (13:42→23:30)
[2018-02-01] MEDS: PANTOPRAZOLE SODIUM 40 MG TAB PO SCH (14:25)
[2018-02-01] MEDS: VITAMIN B COMPLEX PO SCH (14:26)
[2018-02-01] MEDS ORDERED: PROMETHAZINE HCL 25 MG TAB TUBE PRN (15:00)
[2018-02-01] MEDS ORDERED: LACTULOSE 20 GM/30 ML UDCUP TUBE SCH (16:00)
--- NOTE | 2018-02-01 16:42 | PDINTPN ---
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 due to UTI, spinal source. On Ancef, antibiotics and evaluation for source being directed by ID. Repeat blood cultures pending. Non- contrast CT spine MANA: Non-oliguric. Cr falling. Likely due to poor PO intake, bacteremia and possibly hepatic disease. Hypotension: Nearly resolved, on minimal NE. Hepatic encephalopathy: Persists. Acue Hypoxemic Respiratory failure: Still requiring BiPAP FIO2 70% to maintain oxygen saturations. I ordered a trial of Vapotherm, but sats fell wit that. CXR yesterday wit interstitial edema. Pulmonary HTN: "Moderate-Severe" on ECHO. May be due to and a contributor to hypoxemic respratory railure. Plan: Place NGT, start lactulose. Taper NE off as tolerated. Continue antibiotics. May require intubation if doesn't improve soon. 40 minutes CC time addressing hypotension, hypoxemia with agitation. 02/01/18 16:47 02/01/18 16:53 Subjective: Intermittently agitated and somnolent. Delirious when she's awake. Objective: Vital Signs Temp Pulse Resp BP Pulse Ox 36.8 C 64 22 H 123/56 H 95 02/01/18 08:00 02/01/18 16:00 02/01/18 16:00 02/01/18 16:00 02/01/18 16:00 Microbiology 01/30/18 17:45 Blood Panel (PCR) - Final Blood S.aureus Methicillin Suscept. Laboratory Results 02/01/18 05:00 02/01/18 05:00 01/31/18 02/01/18 02/02/18 05:59 05:59 05:59 Intake Total 2852.1 4253 Output Total 600 2915 925 Balance 2252.1 1338 -925 PT 21.2 SEC (12.0-15.0) H 01/31/18 05:00 INR 1.82 (0.83-1.16) H 01/31/18 05:00 Microbiology 01/30/18 17:45 Blood Blood Panel (PCR) - Final S.aureus Methicillin Suscept. 01/31/18 13:05 Urine,Clean Catch Urine Culture - Preliminary Staphylococcus Aureus 01/30/18 17:45 Blood Blood Culture - Preliminary 01/30/18 17:45 Blood Staphylococcus Aureus MRI Spine 01/31: Negative. Images reviewed by me. ECHO: EF 73%. Moderate-Severe pulmonary HTN. Physical Exam - Physical Exam General Appearance: moderate distress (when awake), No alert EENT: normal ENT inspection Neck: normal inspection Respiratory: lungs clear Cardiac/Chest: regular rate, rhythm, edema Abdomen: normal bowel sounds, non-tender, soft Skin: normal color, warm/dry Extremities: normal inspection Neuro/Psych: alert, No normal mood/affect (agitated), No motor weakness ICD10 Worksheet Patient Problems: Problems Problem Status Onset Acute renal failure Acute Back pain Acute Cirrhosis Acute Elevated BUN Acute Elevated LFTs Acute Hyperkalemia Acute Abdominal pain Acute GI bleed Acute History of esophageal stricture Acute
--- NOTE | 2018-02-01 16:53 | ASMTCMCOM ---
CM Note CM Note Notes: Patient very confused today. She needed to be on a bipap, has bacteremia, MSSA and tx with ABX. Looking for a Med Proxy. Karly, [employer], has talked with patient's partner, Duke, who reports that patient has only 1 living family member, a brother, Lex Faust who lives in [place]. Duke reports that Patient and brother have been estranged but have been in contact. [facility] Lex's phone #. Duke offered to be Med Proxy. CM to call Lex to see if he agrees that Duke should be Med Proxy. Date Signed: 02/01/2018 04:53 PM Electronically Signed By:Tran Calvillo LCSW
[2018-02-01] MEDS: LACTULOSE 20 GM/30 ML UDCUP TUBE SCH (22:33)
[2018-02-01] MEDS: RIFAXIMIN 550 MG TAB TUBE SCH (22:33)
[2018-02-01] MEDS: PATCH REMOVAL 1 EA PATCH TD SCH (22:33)
[2018-02-01] MEDS ORDERED: AMIODARONE HCL 100 ML IV ONE (23:05)
[2018-02-02] MEDS: DEXMEDETOMIDINE HCL 400 MCG in NS 100 ML IV SCH ×4 (00:13→20:55)
--- NOTE | 2018-02-02 01:55 | HOSPPROG ---
Hospitalist Progress Note Assessment/Plan: Hospitalist Progress note Patient developed afib prior to shift change and provider ordered 1 time dose amiodarone with improvement of HR to 80s-100s. Patient with increasing QT prolongation (at RN shift noted QT 502). will d/c haldol. prn ativan low dose for agitation. patient requiring restraints and max precedex gtt. Heart Rate acceptable at this time. patient not a candidate for anticoagulation with thrombocytopenia/coagulopathy. will continue to monitor HR consider cardizem bolus and/or gtt if HR escalates. patient now off pressor support. Rx consult to review med rec for QT prolongers. Objective: Vital Signs Temp Pulse Resp BP Pulse Ox 36.8 C 100 22 H 113/58 L 95 02/01/18 08:00 02/02/18 00:20 02/02/18 00:20 02/02/18 00:00 02/02/18 00:20 Microbiology 01/30/18 17:45 Blood Panel (PCR) - Final Blood S.aureus Methicillin Suscept. Laboratory Results 02/01/18 05:00 02/01/18 05:00 01/31/18 02/01/18 02/02/18 05:59 05:59 05:59 Intake Total 2852.1 4253 735 Output Total 600 2915 1475 Balance 2252.1 1338 -740 PT 21.2 SEC (12.0-15.0) H 01/31/18 05:00 INR 1.82 (0.83-1.16) H 01/31/18 05:00 ICD10 Worksheet Patient Problems: Problems Problem Status Onset Acute renal failure Acute Back pain Acute Cirrhosis Acute Elevated BUN Acute Elevated LFTs Acute Hyperkalemia Acute Abdominal pain Acute GI bleed Acute History of esophageal stricture Acute
[2018-02-02] MEDS: LORazepam 2 MG/ML INJ IVP PRN ×3 (02:44→20:46)
[2018-02-02] MEDS: LACTULOSE 20 GM/30 ML UDCUP TUBE SCH ×4 (06:19→21:05)
[2018-02-02 07:02] LABS: PLATELET COUNT 22 10^3/uL (150-400)
[2018-02-02] MEDS ORDERED: PROTOCOL POTASSIUM 1 DOSE MISC PRN ×2 (07:02→07:49)
[2018-02-02] MEDS ORDERED: PROTOCOL MAGNESIUM 1 DOSE IV PRN (07:02)
[2018-02-02] MEDS ORDERED: PROTOCOL CALCIUM 1 DOSE IV PRN (07:49)
[2018-02-02] MEDS ORDERED: PROTOCOL K PHOSPHATE 1 DOSE IV PRN (07:49)
[2018-02-02] MEDS ORDERED: MAGNESIUM SULF 1 GM/DEXTROSE 100 ML IV ONE (07:58)
[2018-02-02] MEDS: INSULIN REGULAR HUMAN 100 UNIT/ML UNIT SC SCH ×4 (09:12→21:03)
[2018-02-02] MEDS: RIFAXIMIN 550 MG TAB TUBE SCH ×2 (09:12→21:03)
[2018-02-02] MEDS: POTASSIUM Cl (KCl) 50 ML IV SCH ×4 (09:12→23:07)
[2018-02-02] MEDS: LIDOCAINE 4%/MENTHOL 1% PATCH TD SCH (09:13)
--- NOTE | 2018-02-02 10:09 | HOSPPROG ---
Hospitalist Progress Note Assessment/Plan: Assessment & plan # Septic shock secondary to MSSA bacteremia (hypotension, tachycardia, tachypnea , elevated lactate, MANA). Source appears to be urine. Off pressors this am. Lactate cleared. Rpt BCx's ngtd. Echo neg for vegetation. -cont Cefazolin, DOT per ID # Acute hypoxic respiratory failure - On bipap overnight. Wt down and net neg 2.5L overnight after repeat IV Lasix dose yest. ABG this am with low pO2. -Increase FiO2 on bipap from 40% to 50% -repeat CXR now -monitor I&O's, daily weights -cont bipap # A fib - 2nd episode occurred overnight, s/p Amio bolus, converted to NSR this am. No known h/o A fib, likely precipitated by acute illness. TSH normal. Valves ok on echo. -cont to monitor on tele -consider diltiazem for rate control if needed -not a candidate for anti-coagulation at this time with low platelets # Elevated troponin - mild bump in trop, likely strain in setting of sepsis and brief A fib, trending down # Pulmonary hypertension - PAP 72 on echo, unclear if acute or chronic. ?2/2 acute pulmonary edema process. Discussed with pulm. # Acute kidney injury - likely pre-renal / sepsis related. Improved with IVF's and vasopressor support. # Hyperkalemia- in setting of MANA, resolved. Now hypokalemic. -replace per protocol, along with IV Mag # Hyponatremia - improved with IV fluids. # Metabolic acidosis - likely combination of lactic acidosis as well as uremia. # Acute on chronic encephalopathy-likely related to hepatic encephalopathy -continue Rifaximin per NG tube -increase Lactulose dose to QID to effect BM's, not stooling on TID # Back pain - this was patient's presenting complaint. Non-con MRI of lumbar spine neg for abscess, but subacute L4 compression fracture noted. # L4 compression fracture - subacute by MRI, reassess pain factor once her infectious status is improved # Cirrhosis- MELD score 34. She is on transplant list. Bili remains quite elevated, though normal alk phos and AST/ALT # Diabetes mellitus type 2 - recent hemoglobin A1c measured at 7.3%. -cont SSI # Thrombocytopenia-her baseline appears to be somewhere around 50,000, now 22K. S/P plt transfusion for purpose of PICC line placement. No bleeding. -follow, transfuse plts for count <10K or e/o bleeding # Agitation - prn Ativan, Haldol d/c'd due to QT prolongation # DVT prophylaxis- compression devices. No heparin or Lovenox in light of acute kidney injury and thrombocytopenia. # Disposition- cont inpt / ICU. 40 minutes critical care. Pt is not currently decisional due to acute encephalopathy. Subjective: Pt sedated, on bipap. Encephalopathic. Not following commands. No fevers. Objective: Vital Signs Temp Pulse Resp BP Pulse Ox 36.3 C 95 26 H 123/74 H 92 02/02/18 06:00 02/02/18 10:00 02/02/18 10:00 02/02/18 10:00 02/02/18 10:00 Microbiology 01/30/18 17:45 Blood Culture - Final Blood Staphylococcus Aureus Blood Panel (PCR) - Final S.aureus Methicillin Suscept. 01/30/18 19:30 Blood Culture - Final Blood Staphylococcus Aureus 01/31/18 13:05 Urine Culture - Final Urine,Clean Catch Staphylococcus Aureus Laboratory Results 02/02/18 06:00 02/02/18 06:00 02/01/18 02/02/18 02/03/18 05:59 05:59 05:59 Intake Total 4253 1305 Output Total 2915 3875 Balance 1338 -2570 PT 21.2 SEC (12.0-15.0) H 01/31/18 05:00 INR 1.82 (0.83-1.16) H 01/31/18 05:00 - Physical Exam Constitutional: no apparent distress Eyes: PERRL Ears, Nose, Mouth, Throat: moist mucous membranes Cardiovascular: regular rate and rhythym Respiratory: no respiratory distress, bronchial breath sounds, rhonchi Gastrointestinal: normoactive bowel sounds, soft, non-tender abdomen Skin: warm Psychiatric: encephalopathic ICD10 Worksheet Patient Problems: Problems Problem Status Onset Acute renal failure Acute Back pain Acute Cirrhosis Acute Elevated BUN Acute Elevated LFTs Acute Hyperkalemia Acute Abdominal pain Acute GI bleed Acute History of esophageal stricture Acute
--- NOTE | 2018-02-02 10:15 | SOAPPROG ---
SOAP Progress Note Assessment/Plan: Assessment: 1. MANA Cr has improved nicely. 2. Hypokalemia Replaced. Repeat labs ordered. 3. Volume status Will defer to critical care Will sign off Plan: 02/02/18 10:13 02/02/18 10:15 Subjective: Sedated Objective: Vital Signs Temp Pulse Resp BP Pulse Ox 36.3 C 95 26 H 123/74 H 92 02/02/18 06:00 02/02/18 10:00 02/02/18 10:00 02/02/18 10:00 02/02/18 10:00 Microbiology 01/30/18 17:45 Blood Culture - Final Blood Staphylococcus Aureus Blood Panel (PCR) - Final S.aureus Methicillin Suscept. 01/30/18 19:30 Blood Culture - Final Blood Staphylococcus Aureus 01/31/18 13:05 Urine Culture - Final Urine,Clean Catch Staphylococcus Aureus Laboratory Results 02/02/18 06:00 02/02/18 06:00 02/01/18 02/02/18 02/03/18 05:59 05:59 05:59 Intake Total 4253 1305 Output Total 2915 3875 Balance 1338 -2570 PT 21.2 SEC (12.0-15.0) H 01/31/18 05:00 INR 1.82 (0.83-1.16) H 01/31/18 05:00 Physical Exam - Physical Exam General Appearance: obtunded Respiratory: decreased breath sounds Cardiac/Chest: regular rate, rhythm Pelvic Exam: other (haider) Extremities: pedal edema ICD10 Worksheet Patient Problems: Problems Problem Status Onset Acute renal failure Acute Back pain Acute Cirrhosis Acute Elevated BUN Acute Elevated LFTs Acute Hyperkalemia Acute Abdominal pain Acute GI bleed Acute History of esophageal stricture Acute
[2018-02-02] MEDS: PRESERVISION AREDS2 FORMULA EYE VIT 1 EACH PO SCH (11:44)
[2018-02-02] MEDS: CALCIUM CARB W/VIT D 500 MG TAB TUBE SCH (11:45)
[2018-02-02] MEDS: CHOLECALCIFEROL VIT D3 1,000 UNITS TAB TUBE SCH (11:45)
[2018-02-02] MEDS: ceFAZolin 2 GM/SWFI 2 GM/20 ML SYR IVP SCH ×2 (11:53→21:03)
[2018-02-02] MEDS ORDERED: buPROPion 75 MG TAB TUBE SCH (12:00)
[2018-02-02] MEDS ORDERED: ESCITALOPRAM OXALATE 10 MG TAB TUBE SCH (12:00)
[2018-02-02] MEDS ORDERED: VITAMIN B COMPLEX 1 EA CAP/TAB PO SCH (12:00)
[2018-02-02] MEDS: LANSOPRAZOLE SUSP 30MG/10ML UDSYR (Adult) TUBE SCH (12:27)
[2018-02-02] MEDS ORDERED: POTASSIUM Cl (KCl) 50 ML IV SCH (13:30)
[2018-02-02] MEDS: POTASSIUM Cl (KCl) 10 MEQ in NS 100 ML IV SCH ×3 (14:15→16:27)
--- NOTE | 2018-02-02 14:18 | HOSPPROG ---
Hospitalist Progress Note Assessment/Plan: Assessment & plan # Septic shock secondary to MSSA bacteremia (hypotension, tachycardia, tachypnea , elevated lactate, MANA). Source appears to be urine. Off pressors this am. Lactate cleared. Rpt BCx's ngtd. Echo neg for vegetation. -cont Cefazolin, DOT per ID # Acute hypoxic respiratory failure - On bipap overnight. Wt down and net neg 2.5L overnight after repeat IV Lasix dose yest. ABG this am with low pO2. -Increase FiO2 on bipap from 40% to 50% -repeat CXR now - reviewed with pulm, c/w ARDS - will attempt repeat Lasix dose today -monitor I&O's, daily weights -cont bipap # A fib - 2nd episode occurred overnight, s/p Amio bolus, converted to NSR this am. No known h/o A fib, likely precipitated by acute illness. TSH normal. Valves ok on echo. -cont to monitor on tele -consider diltiazem for rate control if needed -not a candidate for anti-coagulation at this time with low platelets # Elevated troponin - mild bump in trop, likely strain in setting of sepsis and brief A fib, trending down # Pulmonary hypertension - PAP 72 on echo, unclear if acute or chronic. ?2/2 acute pulmonary edema process. Discussed with pulm. # Acute kidney injury - likely pre-renal / sepsis related. Improved with IVF's and vasopressor support. # Hyperkalemia- in setting of MANA, resolved. Now hypokalemic. -replace per protocol, along with IV Mag # Hyponatremia - improved with IV fluids. # Metabolic acidosis - likely combination of lactic acidosis as well as uremia. # Acute on chronic encephalopathy-likely related to hepatic encephalopathy -continue Rifaximin per NG tube -increase Lactulose dose to QID to effect BM's, not stooling on TID # Back pain - this was patient's presenting complaint. Non-con MRI of lumbar spine neg for abscess, but subacute L4 compression fracture noted. # L4 compression fracture - subacute by MRI, reassess pain factor once her infectious status is improved # Cirrhosis- MELD score 34. She is on transplant list. Bili remains quite elevated, though normal alk phos and AST/ALT # Diabetes mellitus type 2 - recent hemoglobin A1c measured at 7.3%. -cont SSI # Thrombocytopenia-her baseline appears to be somewhere around 50,000, now 22K. S/P plt transfusion for purpose of PICC line placement. No bleeding. -follow, transfuse plts for count <10K or e/o bleeding # Agitation - prn Ativan, Haldol d/c'd due to QT prolongation # DVT prophylaxis- compression devices. No heparin or Lovenox in light of acute kidney injury and thrombocytopenia. # Disposition- cont inpt / ICU. 40 minutes critical care. Pt is not currently decisional due to acute encephalopathy. Subjective: Pt sedated, intermittently agitated, non-verbal. No fevers. Objective: Vital Signs Temp Pulse Resp BP Pulse Ox 36.3 C 64 26 H 109/54 L 98 02/02/18 06:00 02/02/18 12:00 02/02/18 12:00 02/02/18 12:00 02/02/18 12:00 Microbiology 01/30/18 17:45 Blood Culture - Final Blood Staphylococcus Aureus Blood Panel (PCR) - Final S.aureus Methicillin Suscept. 01/30/18 19:30 Blood Culture - Final Blood Staphylococcus Aureus 01/31/18 13:05 Urine Culture - Final Urine,Clean Catch Staphylococcus Aureus Laboratory Results 02/02/18 06:00 02/02/18 12:30 02/01/18 02/02/18 02/03/18 05:59 05:59 05:59 Intake Total 4253 1305 Output Total 2915 3875 Balance 1338 -2570 PT 21.2 SEC (12.0-15.0) H 01/31/18 05:00 INR 1.82 (0.83-1.16) H 01/31/18 05:00 - Physical Exam Constitutional: no apparent distress Eyes: PERRL Ears, Nose, Mouth, Throat: moist mucous membranes Cardiovascular: regular rate and rhythym Respiratory: no respiratory distress, inspiratory crackles Gastrointestinal: normoactive bowel sounds, soft, non-tender abdomen Skin: warm Psychiatric: encephalopathic ICD10 Worksheet Patient Problems: Problems Problem Status Onset Acute renal failure Acute Back pain Acute Cirrhosis Acute Elevated BUN Acute Elevated LFTs Acute Hyperkalemia Acute Abdominal pain Acute GI bleed Acute History of esophageal stricture Acute
[2018-02-02] MEDS: IPRATROPIUM/ALBUTEROL 3 ML DEYVIAL IH PRN ×2 (14:24→17:05)
[2018-02-02] MEDS: FUROSEMIDE 40 MG/4 ML VIAL IVP SCH (14:43)
--- NOTE | 2018-02-02 15:27 | PDINTPN ---
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 due to UTI, spinal source. On Ancef, antibiotics and evaluation for source being directed by ID. Repeat blood cultures pending. Non- contrast CT spine MANA: Non-oliguric. Cr nearing baseline. Likely due to poor PO intake, bacteremia and possibly hepatic disease. Hypernatremia: Na hiher Hypokalemia: Hypotension: Weaning off NE. Hepatic encephalopathy: Persists, now fewer periods of agitation. No BMs on lactulose Acue Hypoxemic Respiratory failure: Still requiring BiPAP FIO2 70% to maintain oxygen saturations. Today is tolerating Vapotherm. CXR shows extensive edema pattern, likely non-cardiogenic (ARDS). CVP a bit high. Pulmonary HTN: "Moderate-Severe" on ECHO. May be due to and a contributor to hypoxemic respiratory failure. Plan: Increase lactulose. Taper NE off as tolerated. Continue antibiotics. May require intubation if doesn't improve soon. Repeat Lasix. 35 minutes CC time addressing new hypernatremia, hypokalemia, hypoxemia/ARDS, with delirium/agitation, hepatic encephalopathy in the setting of bacteremia. 02/02/18 15:28 Subjective: Minimall responsive, moaning at times. Objective: Vital Signs Temp Pulse Resp BP Pulse Ox 36.3 C 70 27 H 117/58 L 98 02/02/18 06:00 02/02/18 14:25 02/02/18 14:25 02/02/18 14:00 02/02/18 14:25 Microbiology 01/30/18 17:45 Blood Culture - Final Blood Staphylococcus Aureus Blood Panel (PCR) - Final S.aureus Methicillin Suscept. 01/30/18 19:30 Blood Culture - Final Blood Staphylococcus Aureus 01/31/18 13:05 Urine Culture - Final Urine,Clean Catch Staphylococcus Aureus Laboratory Results 02/02/18 06:00 02/02/18 12:30 02/01/18 02/02/18 02/03/18 05:59 05:59 05:59 Intake Total 4253 1305 Output Total 2915 3875 Balance 1338 -2570 PT 21.2 SEC (12.0-15.0) H 01/31/18 05:00 INR 1.82 (0.83-1.16) H 01/31/18 05:00 CXR: Marked increase in bilateral alveolar infiltrates. Images reviewed by me. Physical Exam - Physical Exam General Appearance: obtunded EENT: normal ENT inspection Neck: normal inspection Respiratory: lungs clear Cardiac/Chest: regular rate, rhythm, No edema Abdomen: non-tender, No soft Skin: normal color, warm/dry Extremities: normal inspection Neuro/Psych: No alert, No motor weakness (moves all extremities when agitated) ICD10 Worksheet Patient Problems: Problems Problem Status Onset Acute renal failure Acute Back pain Acute Cirrhosis Acute Elevated BUN Acute Elevated LFTs Acute Hyperkalemia Acute Abdominal pain Acute GI bleed Acute History of esophageal stricture Acute
[2018-02-02] MEDS ORDERED: FUROSEMIDE 40 MG/4 ML VIAL IVP ONE (15:33)
--- NOTE | 2018-02-02 15:37 | ASMTCMCOM ---
CM Note CM Note Notes: Medical ProxyContacted patient's brother Lex Faust [phone] and he felt that Rizwana's partner of the last 7yrs, Duke Renan should be her medical decision maker. Romain contacted and has agreed. Duke's phone# [phone]. Date Signed: 02/02/2018 03:36 PM Electronically Signed By:Tran Calvillo LCSW
--- NOTE | 2018-02-02 16:17 | PCMIDPN ---
Assessment/Plan: # Sepsis due to MSSA bacteremia # MSSA bacteremia unclear source, UCx positive but not clear if that is primary or secondary. TTE without evidence of endocarditis. Non-contrast MRI negative for involvement of L spine. Very encephalopathic today, difficult to get additional c/o. Repeat blood cx 01/30 so far neg --continue cefazolin --when more stable will need PICC line exchanged # Worsening hypoxia: suspect multifactorial. --no abx changes # ARF: almost resolve, change dosing cefazolin 2gm IV q8 # Cirrhosis: anemia, thrombocytopenia. Known varices. Currently w hepatic encephalopathy meds cefazolin 2gm IV q12 micro 01/30 blood cx (2) MSSA 02/01 blood cx (2) NGTD Subjective: confused, intermittent afib Objective: Vital Signs Temp Pulse Resp BP Pulse Ox 36.3 C 66 25 H 120/58 L 96 02/02/18 06:00 02/02/18 16:00 02/02/18 16:00 02/02/18 16:00 02/02/18 16:00 Microbiology 01/30/18 17:45 Blood Culture - Final Blood Staphylococcus Aureus Blood Panel (PCR) - Final S.aureus Methicillin Suscept. 01/30/18 19:30 Blood Culture - Final Blood Staphylococcus Aureus 01/31/18 13:05 Urine Culture - Final Urine,Clean Catch Staphylococcus Aureus Laboratory Results 02/02/18 06:00 02/02/18 12:30 02/01/18 02/02/18 02/03/18 05:59 05:59 05:59 Intake Total 4253 1305 Output Total 2915 3875 Balance 1338 -2570 C-Reactive Protein 85.9 mg/L (<10.0) H 02/02/18 06:00 - Physical Exam General Appearance: alert, toxic EENT: scleral icterus Respiratory: crackles, coarse breath sounds, No accessory muscle use Cardiac/Chest: regular rate, rhythm Extremities: No pedal edema Abdomen: normal bowel sounds, non-tender, soft Pelvic Exam: haider (orange urine) Skin: jaundice, pallor, No rash Neuro/Psych: confused - Line/s RUE PICC Lines: No drainage, No erythema - Time Spent With Patient Time Spent with Patient: greater than 35 minutes Time Spent with Patient: Greater than 35 minutes spent on this patients care, greater than 50% of time spent counseling, educating, and coordinating care regarding the above mentioned plan. ICD10 Worksheet Patient Problems: Problems Problem Status Onset Acute renal failure Acute Back pain Acute Cirrhosis Acute Elevated BUN Acute Elevated LFTs Acute Hyperkalemia Acute Abdominal pain Acute GI bleed Acute History of esophageal stricture Acute
[2018-02-02] MEDS: PATCH REMOVAL 1 EA PATCH TD SCH (21:06)
[2018-02-03] MEDS: DEXMEDETOMIDINE HCL 400 MCG in NS 100 ML IV SCH ×2 (00:15→04:34)
[2018-02-03] MEDS: ceFAZolin 2 GM/SWFI 2 GM/20 ML SYR IVP SCH ×3 (03:15→19:45)
[2018-02-03] MEDS: POTASSIUM Cl (KCl) 10 MEQ in D5W 50 ML IV SCH ×9 (03:35→18:11)
[2018-02-03 06:40] LABS: PLATELET COUNT 19 10^3/uL (150-400)
[2018-02-03] MEDS ORDERED: D5W 1,000 ML IV SCH (07:00)
[2018-02-03] MEDS: LORazepam 2 MG/ML INJ IVP PRN ×4 (07:33→23:52)
[2018-02-03] MEDS: LACTULOSE 20 GM/30 ML UDCUP TUBE SCH ×3 (07:35→23:20)
[2018-02-03] MEDS: FUROSEMIDE 40 MG/4 ML VIAL IVP SCH (07:36)
[2018-02-03] MEDS: LIDOCAINE 4%/MENTHOL 1% PATCH TD SCH (07:36)
[2018-02-03] MEDS: RIFAXIMIN 550 MG TAB TUBE SCH ×2 (07:36→21:09)
[2018-02-03] MEDS ORDERED: PROTOCOL POTASSIUM 1 DOSE MISC PRN ×2 (08:20)
[2018-02-03] MEDS: INSULIN REGULAR HUMAN 100 UNIT/ML UNIT SC SCH ×3 (08:52→18:14)
[2018-02-03] MEDS ORDERED: MAGNESIUM SULF 1 GM/DEXTROSE 100 ML IV ONE (09:09)
[2018-02-03] MEDS ORDERED: POTASSIUM Cl (KCl) 50 ML IV ONE (09:09)
[2018-02-03] MEDS: IPRATROPIUM/ALBUTEROL 3 ML DEYVIAL IH PRN (09:10)
--- NOTE | 2018-02-03 09:24 | HOSPPROG ---
Hospitalist Progress Note Assessment/Plan: Assessment & plan # Septic shock secondary to MSSA bacteremia (hypotension, tachycardia, tachypnea , elevated lactate, MANA). Source appears to be urine though still considering L -spine source. MRI L-spine neg, but non-contrasted study. Off pressors. Lactate cleared. Echo neg for vegetation. -rpt BCx's ngtd. -cont Cefazolin, DOT per ID -consider repeating MRI L-spine with contrast once more stabilized # Acute hypoxic respiratory failure - CXR yest c/w ARDS, though volume overload may be contributing. P/F ratio 143. On bipap overnight, 40% FiO2, vapotherm during day. Discussed with pulm -repeat CXR today pers reviewed/interp, no significant change in diffuse b/l infiltrates / ARDS pattern -intubation today, vent settings per pulm -increase Lasix to 40 IV BID -monitor I&O's, daily weights # Acute on chronic encephalopathy- suspect hepatic encephalopathy vs toxic / metabolic with infection. Also consider alcohol w/d. Requiring Precedex. -wean Precedex off, start CIWA protocol -recheck ammonia (54 --> 31) -continue Rifaximin per NG tube -continue Lactulose per tube, now stooling # A fib - Has had 2 brief episodes which both converted after Amio bolus. No known h/o A fib, likely precipitated by acute illness. TSH normal. Valves ok on echo. 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 She is on transplant list. Bili remains quite elevated, though normal alk phos and AST/ALT. Suspicious she is still drinking. # Elevated troponin - mild bump in trop, likely strain in setting of sepsis and brief A fib, trending down # Pulmonary hypertension - PAP 72 on echo, unclear if acute or chronic. ?2/2 acute pulmonary process. Discussed with pulm. # Acute kidney injury - likely pre-renal / sepsis related. Improved with IVF's and vasopressor support. # Hyperkalemia- in setting of MANA, resolved. Now hypokalemic. -replace per protocol, along with IV Mag # Hypernatremia - FWD ~5L -initiated free water with tube feeds, but Na still 155 this afternoon - increase free water to 200 mLs q2h -repeat in am # Metabolic acidosis - likely combination of lactic acidosis as well as uremia. Resolved. # Back pain - this was patient's presenting complaint. Non-con MRI of lumbar spine neg for abscess, but subacute L4 compression fracture noted. # L4 compression fracture - subacute by MRI, reassess pain factor once her infectious status is improved # Diabetes mellitus type 2 - recent hemoglobin A1c measured at 7.3%. -cont SSI # Thrombocytopenia-her baseline appears to be somewhere around 50,000, now 19K. S/P plt transfusion for purpose of PICC line placement. No bleeding. -follow, transfuse plts for count <10K or e/o bleeding # Agitation - prn Ativan, weaning precedex as above. Haldol d/c'd due to QT prolongation # FEN - start tube feeds today # DVT prophylaxis- compression devices. No heparin or Lovenox in light of acute kidney injury and thrombocytopenia. # Disposition- cont inpt / ICU. 40 minutes critical care. Pt is not currently decisional due to acute encephalopathy. Subjective: Pt remains encephalopathic, not following commands. On bipap this am, not protecting her airway very well. No fevers. Objective: Vital Signs Temp Pulse Resp BP Pulse Ox 36.8 C 78 22 H 115/58 L 94 02/03/18 03:55 02/03/18 08:25 02/03/18 08:25 02/03/18 07:40 02/03/18 08:25 Microbiology 01/30/18 17:45 Blood Culture - Final Blood Staphylococcus Aureus Blood Panel (PCR) - Final S.aureus Methicillin Suscept. 01/30/18 19:30 Blood Culture - Final Blood Staphylococcus Aureus 01/31/18 13:05 Urine Culture - Final Urine,Clean Catch Staphylococcus Aureus Laboratory Results 02/03/18 06:05 02/03/18 06:05 02/02/18 02/03/18 02/04/18 05:59 05:59 05:59 Intake Total 1305 2433 Output Total 3875 2050 Balance -2570 383 PT 21.2 SEC (12.0-15.0) H 01/31/18 05:00 INR 1.82 (0.83-1.16) H 01/31/18 05:00 - Physical Exam Constitutional: no apparent distress Eyes: PERRL Ears, Nose, Mouth, Throat: moist mucous membranes Cardiovascular: regular rate and rhythym Respiratory: no respiratory distress, reduced air movement, inspiratory crackles Gastrointestinal: normoactive bowel sounds, soft, non-tender abdomen Skin: warm Musculoskeletal: full muscle strength Psychiatric: encephalopathic ICD10 Worksheet Patient Problems: Problems Problem Status Onset Acute renal failure Acute Back pain Acute Cirrhosis Acute Elevated BUN Acute Elevated LFTs Acute Hyperkalemia Acute Abdominal pain Acute GI bleed Acute History of esophageal stricture Acute
[2018-02-03] MEDS: CALCIUM CARB W/VIT D 500 MG TAB TUBE SCH (11:51)
[2018-02-03] MEDS: LANSOPRAZOLE SUSP 30MG/10ML UDSYR (Adult) TUBE SCH (11:53)
[2018-02-03] MEDS: CHOLECALCIFEROL VIT D3 1,000 UNITS TAB TUBE SCH (11:55)
--- NOTE | 2018-02-03 14:08 | PDINTPN ---
Change Over Progress Note Assessment/Plan: Assessment: MSSA Bacteremia: ? due to UTI, spinal source. On Ancef, antibiotics and evaluation for source being directed by ID. Repeat blood cultures pending. Non- contrast CT spine MANA: Non-oliguric. Cr at baseline. Likely due to poor PO intake, bacteremia and possibly hepatic disease. Hypernatremia: Na higher Hypokalemia: Resolved Hypotension: Now off NE. Hepatic encephalopathy: Persists, now fewer periods of agitation. Having BMs on lactulose Acute Hypoxemic Respiratory failure: Still requiring BiPAP FIO2 70% to maintain oxygen saturations. Today is not tolerating Vapotherm, with hypoxemia on high- flow. CXR shows extensive edema pattern, likely non-cardiogenic (ARDS). CVP a bit high. Pulmonary HTN: "Moderate-Severe" on ECHO. May be due to and a contributor to hypoxemic respiratory failure. Plan: Continue lactulose. Continue antibiotics. MAt this point I feel that intubation is warranted, with prolonged severe hypoxemia and inability to adequately protect her airway. D/W POA Continue Lasix. 02/03/18 14:09 Subjective: Not responding to questions, commands. Objective: Vital Signs Temp Pulse Resp BP Pulse Ox 37.1 C 72 24 H 108/49 L 98 02/03/18 10:04 02/03/18 13:00 02/03/18 13:00 02/03/18 13:00 02/03/18 13:00 Microbiology 01/30/18 17:45 Blood Culture - Final Blood Staphylococcus Aureus Blood Panel (PCR) - Final S.aureus Methicillin Suscept. 01/30/18 19:30 Blood Culture - Final Blood Staphylococcus Aureus Laboratory Results 02/03/18 06:05 02/03/18 06:05 02/02/18 02/03/18 02/04/18 05:59 05:59 05:59 Intake Total 1305 2433 Output Total 3875 2050 1800 Balance -2570 383 -1800 PT 21.2 SEC (12.0-15.0) H 01/31/18 05:00 INR 1.82 (0.83-1.16) H 01/31/18 05:00 CXR: Little change in extensive bilateral alveolar infiltrates. Images reviewed by me. Physical Exam - Physical Exam General Appearance: obtunded, unresponsive, No alert EENT: normal ENT inspection Neck: normal inspection Respiratory: lungs clear, normal breath sounds Cardiac/Chest: regular rate, rhythm, No edema Abdomen: normal bowel sounds, non-tender Skin: normal color, warm/dry Extremities: normal inspection Neuro/Psych: No alert, No normal mood/affect ICD10 Worksheet Patient Problems: Problems Problem Status Onset Acute renal failure Acute Back pain Acute Cirrhosis Acute Elevated BUN Acute Elevated LFTs Acute Hyperkalemia Acute Abdominal pain Acute GI bleed Acute History of esophageal stricture Acute
--- NOTE | 2018-02-03 14:12 | PCMIDPN ---
Assessment/Plan: Assessment: MSSA bacteremia and sepsis-unclear source. 2D echo completed and no clear evidence of endocarditis. Non contrasted MRI of the lumbar spine did not show any significant pathology indicating diskitis or epidural collection but limited due to lack of contrast. Repeat blood cultures are negative thus far. Clinically the patient still exhibits moderate to severe signs of encephalopathy. Currently renally adjusted cefazolin. Will continue this antibiotic monotherapy for now. Plan: 1. Continue monotherapy with the cefazolin. 2. Follow up on 2D echocardiogram result. 3. Follow up repeat blood cultures. 4. Follow clinical course. Subjective: Patient remains encephalopathic and resting in the intensive care unit. She remains on BiPAP. No new events. No fevers. Objective: Cefazolin # 4 Vital Signs Temp Pulse Resp BP Pulse Ox 37.1 C 62 25 H 114/52 L 90 L 02/03/18 10:04 02/03/18 12:00 02/03/18 12:00 02/03/18 12:00 02/03/18 12:00 Microbiology 01/30/18 17:45 Blood Culture - Final Blood Staphylococcus Aureus Blood Panel (PCR) - Final S.aureus Methicillin Suscept. 01/30/18 19:30 Blood Culture - Final Blood Staphylococcus Aureus Laboratory Results 02/03/18 06:05 02/03/18 06:05 02/02/18 02/03/18 02/04/18 05:59 05:59 05:59 Intake Total 1305 2433 Output Total 3875 2050 1800 Balance -2570 383 -1800 C-Reactive Protein 85.9 mg/L (<10.0) H 02/02/18 06:00 - Physical Exam General Appearance: WD/WN, non-toxic, other (Confused) Respiratory: lungs clear, normal breath sounds, No respiratory distress Cardiac/Chest: regular rate, rhythm, No tachycardia Skin: normal color, warm/dry, No rash Neuro/Psych: alert, normal mood/affect, oriented x 3 ICD10 Worksheet Patient Problems: Problems Problem Status Onset Acute renal failure Acute Back pain Acute Cirrhosis Acute Elevated BUN Acute Elevated LFTs Acute Hyperkalemia Acute Abdominal pain Acute GI bleed Acute History of esophageal stricture Acute
[2018-02-03] MEDS ORDERED: PROPOFOL/EMULSION 100 ML IV SCH (14:32)
[2018-02-03] MEDS ORDERED: fentaNYL/NACL 100 ML IV SCH (14:32)
[2018-02-03] MEDS ORDERED: LIDOCAINE 2% JELLY 5 ML TUBE TP ONE (14:44)
[2018-02-03] MEDS ORDERED: LIDOCAINE 1% 300 MG/30 ML SDV MISC ONE (14:44)
[2018-02-03] MEDS ORDERED: FUROSEMIDE 40 MG/4 ML VIAL IVP SCH (15:00)
[2018-02-03] MEDS ORDERED: fentaNYL 100 MCG/2 ML INJ ONE (15:49)
[2018-02-03] MEDS ORDERED: MIDAZOLAM 2 MG/2 ML VIAL ONE (15:49)
[2018-02-03] MEDS ORDERED: fentaNYL 100 MCG/2 ML INJ IVP ONE (16:00)
[2018-02-03] MEDS ORDERED: MIDAZOLAM 2 MG/2 ML VIAL IVP ONE (16:00)
--- NOTE | 2018-02-03 16:04 | GPN ---
[f rep st] PROCEDURE NOTE DATE OF PROCEDURE: 02/03/2018 PROCEDURE: Flexible fiberoptic bronchoscopy. INDICATION FOR THE PROCEDURE: Pneumonia with respiratory failure. PROCEDURE NOTE: The risks and benefits of the procedure were explained to the patient's POA, who agr eed to proceed. The entire procedure was performed in the intensive care unit with the patient under blood pressure, EKG and oximetry monitoring. It was my assessment that there was no risk of airborn e infection from the procedure. After an appropriate time-out, 3 cc of 1% lidocaine were instilled into the patient's oropharynx and the patient was given 100 mcg of fentanyl and 2 mg of Versed. A bite block was placed between her te eth and the bronchoscope was advanced through the bite block into the posterior pharynx, where I enco untered thick brown secretions throughout. However, I was able to easily visualize the vocal cords, which were free of secretions. I advanced the bronchoscope through the vocal cords into the trachea. A 7.5 endotracheal tube was advanced over the endotracheal tube and was secured in place in the dis jason trachea. The patient's oxygen saturations remained in the 80s throughout. I then reintroduced the bronchoscope into the endotracheal tube, and examined all airways bilaterally , where I encountered a small amount of brown secretions, with no occlusive plugs. The endobronchial anatomy and mucosa were normal. I did small volume washes of both lower lobes with return of browni sh fluid. I reconfirmed position of the endotracheal tube about 2.5 cm above the inge at the end o f the procedure and the bronchoscope was removed. There were no complications or bleeding apparent a t the end of the procedure. /[id number]/MODL
[2018-02-03] MEDS: CHLORHEXIDINE GLUCONATE 15 ML UDL PO SCH (19:45)
[2018-02-03] MEDS: FAMOTIDINE 20 MG/NACL 50 ML IV SCH (19:45)
[2018-02-03] MEDS: NOREPINEPHRINE BITARTRATE 4 MG in D5W 500 ML IV SCH (19:48)
[2018-02-03] MEDS ORDERED: NS 500 ML IV ONE (20:05)
--- NOTE | 2018-02-03 20:13 | HOSPPROG ---
Hospitalist Progress Note Assessment/Plan: PM NOTE Nursing reported a drop in BP and requesting restarting pressors She was intubated this afternoon She had bronchoscopy today BP systolic 80's, MAP around 60 Temp 99.6 On Lasix 40mg IV BID, Urine appears concentrated. VS per above, vented MM DRY RRR DECREASED NATE SOUNDS S/NT/ND NO LE EDEMA ROSS: CONCENTRATED URINE I/P #Acute Hypoxic Respiratory Failure #Hypotension, etiology likely multifactorial #Pneumonia #MSSA Bacteremia #ETOH WD #Hypernatremia, Na has been going up daily Plan: Intravascularly she looks dry. She will be given gently hydration 500ml over 5 hours Stop Lasix. she has already received her pm dose, would consider Albumin+Lasix and decreasing dose Await Bronchial washings culture consider broadening abx if still hypotensive and intravascular space is improved , although procalcitonin is trending down. Will recheck Levophed to maintain MAP above 65 repeat CXR in a.m. total critical care time in this patient with acute hypotension in setting of infection and resp failure is 40 minutes Objective: Vital Signs Temp Pulse Resp BP Pulse Ox 37.4 C 61 12 130/60 H 99 02/03/18 20:00 02/03/18 20:00 02/03/18 20:00 02/03/18 20:00 02/03/18 20:00 Microbiology 02/03/18 17:32 Gram Stain - Final Lung Bilateral - Bronchial Washings Laboratory Results 02/03/18 06:05 02/03/18 14:30 02/02/18 02/03/18 02/04/18 05:59 05:59 05:59 Intake Total 1305 2433 1046.9 Output Total 3875 2050 2900 Balance -2570 383 -1853.1 PT 21.2 SEC (12.0-15.0) H 01/31/18 05:00 INR 1.82 (0.83-1.16) H 01/31/18 05:00 ICD10 Worksheet Patient Problems: Problems Problem Status Onset Acute renal failure Acute Back pain Acute Cirrhosis Acute Elevated BUN Acute Elevated LFTs Acute Hyperkalemia Acute Abdominal pain Acute GI bleed Acute History of esophageal stricture Acute
[2018-02-03] MEDS ORDERED: CHLORHEXIDINE GLUCONATE 15 ML UDL PO SCH (21:00)
[2018-02-03] MEDS ORDERED: FAMOTIDINE 20 MG/NACL 50 ML IV SCH (21:00)
[2018-02-03] MEDS: PATCH REMOVAL 1 EA PATCH TD SCH (21:13)
[2018-02-03] MEDS: PROPOFOL/EMULSION 100 ML IV SCH (23:51)
[2018-02-04] MEDS: INSULIN REGULAR HUMAN 100 UNIT/ML UNIT SC SCH ×6 (00:19→20:27)
[2018-02-04] MEDS: POTASSIUM Cl (KCl) 50 ML IV SCH ×2 (01:24→02:08)
[2018-02-04] MEDS: fentaNYL/NACL 100 ML IV SCH ×3 (02:08→22:04)
[2018-02-04 04:30] LABS: PLATELET COUNT 40 10^3/uL (150-400)
[2018-02-04] MEDS: ceFAZolin 2 GM/SWFI 2 GM/20 ML SYR IVP SCH ×3 (04:45→20:00)
[2018-02-04] MEDS ORDERED: MAGNESIUM SULF 1 GM/DEXTROSE 100 ML IV ONE (06:16)
[2018-02-04] MEDS: PROPOFOL/EMULSION 100 ML IV SCH ×3 (06:37→22:03)
[2018-02-04] MEDS: POTASSIUM Cl (KCl) 10 MEQ in NS 50 ML IV SCH ×3 (07:46→09:00)
[2018-02-04] MEDS: NOREPINEPHRINE BITARTRATE 4 MG in D5W 500 ML IV SCH ×3 (08:13→22:04)
[2018-02-04] MEDS: FAMOTIDINE 20 MG/NACL 50 ML IV SCH ×2 (09:00→20:00)
[2018-02-04] MEDS: THIAMINE HCL 500 MG in NS 500 ML IV SCH (09:00)
[2018-02-04] MEDS: RIFAXIMIN 550 MG TAB TUBE SCH ×2 (09:00→20:00)
[2018-02-04] MEDS: LACTULOSE 20 GM/30 ML UDCUP TUBE SCH ×3 (09:00→22:04)
[2018-02-04] MEDS: CHLORHEXIDINE GLUCONATE 15 ML UDL PO SCH ×2 (09:00→20:00)
[2018-02-04] MEDS: LIDOCAINE 4%/MENTHOL 1% PATCH TD SCH (09:01)
[2018-02-04] MEDS ORDERED: K PHOS 20 MMOL in D5W 250 ML IV ONE (10:00)
--- NOTE | 2018-02-04 10:20 | PCMIDPN ---
Assessment/Plan: # Sepsis due to MSSA bacteremia # MSSA bacteremia unclear source, UCx positive but not clear if that is primary or secondary. TTE without evidence of endocarditis. Non-contrast MRI negative for involvement of L spine. Repeat blood cx 01/30 so far neg --continue high dose cefazolin, creatinine now normal --when more stable will need PICC line exchanged # leukocytosis: No other clinical change will discontinue to monitor # Hypoxia: now intubated for airway protection on minimal vent setttings # Cirrhosis: anemia, thrombocytopenia. Known varices. meds cefazolin 2gm IV q8, #5 micro 01/30 blood cx (2) MSSA 02/01 blood cx (2) NGTD Subjective: Patient was intubated overnight. Partner was at bedside I reviewed care with him. Objective: Vital Signs Temp Pulse Resp BP Pulse Ox 37.1 C 67 8 L 126/59 H 94 02/04/18 09:00 02/04/18 10:00 02/04/18 10:00 02/04/18 10:00 02/04/18 10:00 Microbiology 02/03/18 17:32 Gram Stain - Final Lung Bilateral - Bronchial Washings Laboratory Results 02/04/18 04:15 02/04/18 04:15 02/03/18 02/04/18 02/05/18 05:59 05:59 05:59 Intake Total 2433 4096.9 Output Total 2050 3875 Balance 383 221.9 C-Reactive Protein 85.9 mg/L (<10.0) H 02/02/18 06:00 - Physical Exam General Appearance: other (Sedated) EENT: scleral icterus, ET Tube Respiratory: coarse breath sounds Cardiac/Chest: regular rate, rhythm, systolic murmur Extremities: pedal edema Abdomen: non-tender, soft, other (No fluid way) Pelvic Exam: haider Skin: warm/dry, jaundice Neuro/Psych: other (Sedated) - Line/s RUE PICC Lines: No drainage, No erythema - Time Spent With Patient Time Spent with Patient: greater than 35 minutes Time Spent with Patient: Greater than 35 minutes spent on this patients care, greater than 50% of time spent counseling, educating, and coordinating care regarding the above mentioned plan. ICD10 Worksheet Patient Problems: Problems Problem Status Onset Acute renal failure Acute Back pain Acute Cirrhosis Acute Elevated BUN Acute Elevated LFTs Acute Hyperkalemia Acute Abdominal pain Acute GI bleed Acute History of esophageal stricture Acute
[2018-02-04] MEDS: CHOLECALCIFEROL VIT D3 1,000 UNITS TAB TUBE SCH (12:17)
[2018-02-04] MEDS: LANSOPRAZOLE SUSP 30MG/10ML UDSYR (Adult) TUBE SCH (12:17)
[2018-02-04] MEDS: CALCIUM CARB W/VIT D 500 MG TAB TUBE SCH (12:45)
[2018-02-04] MEDS ORDERED: FUROSEMIDE 40 MG/4 ML VIAL IVP ONE (13:03)
--- NOTE | 2018-02-04 13:09 | PDINTPN ---
[employer] Progress Note Assessment/Plan: Assessment: MSSA Bacteremia: ? due to UTI, spinal source. On Ancef, antibiotics and evaluation for source being directed by ID. Repeat blood cultures negative. Non- contrast MRI spine and ECHO negative MANA: Non-oliguric. Cr at baseline. Likely due to poor PO intake, bacteremia and possibly hepatic disease. Hypernatremia: Na higher Hypokalemia: Resolved Hypotension: Now back on NE to maintain BP since propofol and Fentanyl started. Hepatic encephalopathy: Persists, now fewer periods of agitation. Having BMs on lactulose Acute Hypoxemic Respiratory failure: Now down to FIO2 40% to maintain oxygen saturations. ABG with respiratory alkalosis. CXR shows extensive edema pattern, likely non-cardiogenic (ARDS). CVP a bit high. Pulmonary HTN: "Moderate-Severe" on ECHO. May be due to and a contributor to hypoxemic respiratory failure. Hyperglycemia: BSs 300s Hypokalemia: Last level high,? spurious Plan: Continue lactulose, antibiotics. Reduce vent rate. Try to reduce sedation and NE. Will give Lasix Start insulin Recheck K+ 40 min CC time addressing hypotension/pressor needs, 02/04/18 13:10 Subjective: Intubated, sedated Objective: Vital Signs Temp Pulse Resp BP Pulse Ox 37.3 C 69 8 L 105/52 L 95 02/04/18 12:00 02/04/18 12:00 02/04/18 12:00 02/04/18 12:00 02/04/18 11:00 Microbiology 02/03/18 17:32 Gram Stain - Final Lung Bilateral - Bronchial Washings Laboratory Results 02/04/18 04:15 02/04/18 12:15 02/03/18 02/04/18 02/05/18 05:59 05:59 05:59 Intake Total 2433 4096.9 776 Output Total 2050 3875 550 Balance 383 221.9 226 PT 21.2 SEC (12.0-15.0) H 01/31/18 05:00 INR 1.82 (0.83-1.16) H 01/31/18 05:00 Physical Exam - Physical Exam General Appearance: no apparent distress, No alert EENT: normal ENT inspection Neck: normal inspection Respiratory: lungs clear, No normal breath sounds Cardiac/Chest: regular rate, rhythm, edema (1+) Abdomen: normal bowel sounds, non-tender, soft Skin: normal color, warm/dry Extremities: normal inspection Neuro/Psych: No alert, No normal mood/affect ICD10 Worksheet Patient Problems: Problems Problem Status Onset Acute renal failure Acute Back pain Acute Cirrhosis Acute Elevated BUN Acute Elevated LFTs Acute Hyperkalemia Acute Abdominal pain Acute GI bleed Acute History of esophageal stricture Acute
[2018-02-04] MEDS ORDERED: POTASSIUM Cl (KCl) 50 ML IV SCH (14:15)
[2018-02-04] MEDS ORDERED: POTASSIUM Cl (KCl) 10 MEQ in NS 100 ML IV SCH (14:30)
[2018-02-04] MEDS: POTASSIUM Cl (KCl) 10 MEQ in NS 100 ML IV SCH ×3 (15:03→16:09)
--- NOTE | 2018-02-04 15:09 | HOSPPROG ---
Hospitalist Progress Note Assessment/Plan: 52 yo F with ESLD pw septic shock # Septic shock secondary to MSSA bacteremia (hypotension, tachycardia, tachypnea , elevated lactate, MANA). Source unclear, possibly urine. MRI wihtout e/o source of infxn, echo negative. Repeat cxs from 02/01 negative. Continue cefazolin and replace PICC when more stable. # Acute hypoxic respiratory failure - CXR c/w ARDS, though volume overload may be contributing. P/F ratio 143. Repeat cxr from today personally reviewed with improved aeration. Continue lasix, abx. Remains intubated # Acute on chronic encephalopathy- suspect hepatic encephalopathy as well as toxic / metabolic with infection. Continue lactulose/rifaximin (ammonia trending down), tx of infection as above # A fib - Has had 2 brief episodes which both converted after Amio bolus. Monitoring. 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 She was previously on transplant list however her partner and MDPOA took her off today. Bili remains quite elevated, though normal alk phos and AST/ALT. Suspicious she is still drinking. # Elevated troponin - mild bump in trop, likely strain in setting of sepsis and brief A fib, trending down # Pulmonary hypertension - PAP 72 on echo, unclear if acute or chronic. ?2/2 acute pulmonary process. Discussed with pulm. # Acute kidney injury - likely pre-renal / sepsis related. Improved with IVF's and vasopressor support. HyperK resolved # Hypernatremia - FWD ~5L -initiated free water with tube feeds, but Na still 155 this afternoon - increase free water to 200 mLs q2h -continue to monitor # hypophosphatemia/hypoK/hypoMag: quite low, replete per protocol # Metabolic acidosis - likely combination of lactic acidosis as well as uremia. Resolved. # Back pain - this was patient's presenting complaint. Non-con MRI of lumbar spine neg for abscess, but subacute L4 compression fracture noted. # L4 compression fracture - subacute by MRI, reassess pain factor once her infectious status is improved # Diabetes mellitus type 2 - recent hemoglobin A1c measured at 7.3%. -cont SSI # Thrombocytopenia-acute on chronic her baseline appears to be somewhere around 50,000, now 19K. S/P plt transfusion for purpose of PICC line placement. No bleeding. -follow, transfuse plts for count <10K or e/o bleeding # Agitation - prn Ativan, weaning precedex as above. Haldol d/c'd due to QT prolongation # FEN -TF at goal # DVT prophylaxis- compression devices. No heparin or Lovenox in light of acute kidney injury and thrombocytopenia. # Disposition- cont inpt / ICU. 40 minutes critical care. Subjective: no significant overnight events, patient remains intubated/sedated Objective: Vital Signs Temp Pulse Resp BP Pulse Ox 37.4 C 77 8 L 99/55 L 94 02/04/18 15:00 02/04/18 15:00 02/04/18 15:00 02/04/18 15:00 02/04/18 15:00 Microbiology 02/03/18 17:32 Gram Stain - Final Lung Bilateral - Bronchial Washings Laboratory Results 02/04/18 04:15 02/04/18 13:35 02/03/18 02/04/18 02/05/18 05:59 05:59 05:59 Intake Total 2433 4096.9 776 Output Total 2050 3875 550 Balance 383 221.9 226 PT 21.2 SEC (12.0-15.0) H 01/31/18 05:00 INR 1.82 (0.83-1.16) H 01/31/18 05:00 intubated sedated icteric op clear rrr no mrg cta to ant exam soft nt nd trace ble edema sedated, unresponsive ICD10 Worksheet Patient Problems: Problems Problem Status Onset GI bleed Acute Cirrhosis Acute Abdominal pain Acute History of esophageal stricture Acute Acute renal failure Acute Back pain Acute Elevated LFTs Acute Elevated BUN Acute Hyperkalemia Acute
--- NOTE | 2018-02-04 15:40 | ASMTCMCOM ---
CM Note CM Note Notes: Met with patient's partner Duke in a family meeting today. 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 She recently has reconcilliated with her 2 brothers whom she actually raised due to her mother passing away when she was 17. 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 Duke has had a recent loss as his son's 1 month old daughter just from medical complications. Duke is familiar with home care resources and snf's. He states if patient requires rehab, which he thinks she will need, they would use [facility] or [facility]. Will send referrals to both facilities when and if this is the direction of the D/C plan. Intraoperative Neuro Tech is the only therapy ordered at this time. Duke was grateful for the opportunity to talk about the many stressors he is managing right now. He was encouraged today when the Dr.'s in rounds felt like patient is doing better. CM will follow. Date Signed: 02/04/2018 03:39 PM Electronically Signed By:Rosi Trivedi LCSW
[2018-02-04] MEDS: LORazepam 2 MG/ML INJ IVP PRN (18:51)
[2018-02-04] MEDS: PATCH REMOVAL 1 EA PATCH TD SCH (20:00)
[2018-02-05] MEDS: INSULIN REGULAR HUMAN 100 UNIT/ML UNIT SC SCH ×6 (01:08→20:40)
[2018-02-05] MEDS ORDERED: AMIODARONE HCL 100 ML IV ONE (01:29)
[2018-02-05] MEDS ORDERED: MAGNESIUM SULF 2 GM/WATER 50 ML IV ONE (01:52)
[2018-02-05] MEDS: ceFAZolin 2 GM/SWFI 2 GM/20 ML SYR IVP SCH (04:11)
[2018-02-05] MEDS: PROPOFOL/EMULSION 100 ML IV SCH ×4 (04:11→21:00)
[2018-02-05 04:26] LABS: PLATELET COUNT 42 10^3/uL (150-400)
[2018-02-05] MEDS ORDERED: AMIODARONE A.FIB-6HR INFSN (ORDER 2/3) PREMIX IV ONE (05:00)
[2018-02-05] MEDS: NOREPINEPHRINE BITARTRATE 4 MG in D5W 500 ML IV SCH ×3 (06:40→19:48)
[2018-02-05] MEDS: FAMOTIDINE 20 MG/NACL 50 ML IV SCH (09:08)
[2018-02-05] MEDS: LIDOCAINE 4%/MENTHOL 1% PATCH TD SCH (09:08)
[2018-02-05] MEDS: LACTULOSE 20 GM/30 ML UDCUP TUBE SCH ×3 (09:08→20:41)
[2018-02-05] MEDS: RIFAXIMIN 550 MG TAB TUBE SCH ×2 (09:09→20:41)
[2018-02-05] MEDS: THIAMINE HCL 500 MG in NS 500 ML IV SCH (09:09)
[2018-02-05] MEDS: CHLORHEXIDINE GLUCONATE 15 ML UDL PO SCH ×2 (09:09→20:36)
[2018-02-05] MEDS ORDERED: AMIODARONE HCL 900 MG in D5W 500 ML IV ONE (11:00)
--- NOTE | 2018-02-05 11:05 | PCMIDPN ---
Assessment/Plan: Assessment: MSSA bacteremia and sepsis-unclear source. 2D echo completed and no clear evidence of endocarditis. Non contrasted MRI of the lumbar spine did not show any significant pathology indicating diskitis or epidural collection but limited due to lack of contrast. Repeat blood cultures are negative thus far. Patient now intubated. Prior on cefazolin. New Klebsiella isolate from aspirate of bronch. Will change therapy to Zosyn to cover both MSSA as well as new Klebsiella isolate. Plan: 1. Discontinue cefazolin. 2. Start IV Zosyn. 3. Follow clinical course. 02/05/18 15:28 Subjective: Patient remains intubated and sedated. She is being ventilated with 40% FiO2. Hemodynamically stable. Objective: Cefazolin # 6 Vital Signs Temp Pulse Resp BP Pulse Ox 37.0 C 74 18 106/54 L 99 02/05/18 07:59 02/05/18 09:00 02/05/18 09:00 02/05/18 09:00 02/05/18 09:00 Microbiology 02/03/18 17:32 Gram Stain - Final Lung Bilateral - Bronchial Washings Bronchial Washings Culture - Final Klebsiella Aerogenes Laboratory Results 02/05/18 04:10 02/05/18 04:10 02/04/18 02/05/18 02/06/18 05:59 05:59 05:59 Intake Total 4096.9 5564 300 Output Total 3875 1775 Balance 221.9 3789 300 C-Reactive Protein 85.9 mg/L (<10.0) H 02/02/18 06:00 - Physical Exam General Appearance: WD/WN, alert, no apparent distress, non-toxic Respiratory: lungs clear, other (Intubated and sedated.), No normal breath sounds, No respiratory distress Cardiac/Chest: regular rate, rhythm, No tachycardia Extremities: non-tender, normal inspection Skin: normal color, warm/dry, No rash ICD10 Worksheet Patient Problems: Problems Problem Status Onset Acute renal failure Acute Back pain Acute Cirrhosis Acute Elevated BUN Acute Elevated LFTs Acute Hyperkalemia Acute Abdominal pain Acute GI bleed Acute History of esophageal stricture Acute
[2018-02-05] MEDS ORDERED: AMIODARONE TACHY-18HR INFSN (ORDER 3/3) IV ONE (11:30)
[2018-02-05] MEDS: PIPERACILLIN/TAZO 3.375 GM/DEX 50 ML IV SCH ×2 (11:38→17:58)
--- NOTE | 2018-02-05 12:48 | PDINTPN ---
Technical Buyer Progress Note Assessment/Plan: Assessment: MSSA Bacteremia: ? due to UTI, spinal source. Changed Ancef->Zosyn, antibiotics and evaluation for source being directed by ID. Repeat blood cultures negative. Non-contrast MRI spine and ECHO negative MANA: Non-oliguric. Cr at baseline. Likely due to poor PO intake, bacteremia and possibly hepatic disease. Hypernatremia: Na down Hypokalemia: Resolved Hypotension: On NE to maintain BP since propofol and Fentanyl started, titrated down slightly. Hepatic encephalopathy: Now sedated. No BMs in 24+ hours despite lactulose Acute Hypoxemic Respiratory failure: Now down to FIO2 40% to maintain oxygen saturations. ABG with respiratory acidosis today. CXR shows extensive edema pattern, likely non-cardiogenic (ARDS). CVP a bit high. Pulmonary HTN: "Moderate-Severe" on ECHO. May be due to and a contributor to hypoxemic respiratory failure. Hyperglycemia: BSs 300s Hypokalemia: Last level high,? spurious Plan: Continue lactulose, Zosyn Increase vent rate. Try to reduce sedation and NE. Will repeat Lasix Continue insulin 40 min CC time addressing ongoing hypotension/pressor needs 02/05/18 12:51 02/05/18 12:52 Subjective: Intubated, sedated, not responding to questions. Objective: Vital Signs Temp Pulse Resp BP Pulse Ox 37.0 C 72 18 112/54 L 98 02/05/18 07:59 02/05/18 12:00 02/05/18 12:00 02/05/18 12:00 02/05/18 12:00 Microbiology 02/03/18 17:32 Gram Stain - Final Lung Bilateral - Bronchial Washings Bronchial Washings Culture - Final Klebsiella Aerogenes Laboratory Results 02/05/18 04:10 02/05/18 04:10 02/04/18 02/05/18 02/06/18 05:59 05:59 05:59 Intake Total 4096.9 5564 300 Output Total 3875 1775 Balance 221.9 3789 300 PT 21.2 SEC (12.0-15.0) H 01/31/18 05:00 INR 1.82 (0.83-1.16) H 01/31/18 05:00 Microbiology 02/03/18 17:32 Lung Bilateral - Bronchial Washings Gram Stain - Final 02/03/18 17:32 Lung Bilateral - Bronchial Washings Bronchial Washings Culture - Final Klebsiella Aerogenes Laboratory Tests 02/01/18 02/04/18 05:00 05:45 pCO2 31 L pO2 68 ABG pH 7.52 H ABG HCO3 25 O2 Concentration % 40 Actual Respiration Rate 10 SIMV YES Tidal Volume 600 NT-Pro-B Natriuret Pep 9110 H Laboratory Tests 02/05/18 06:05 pCO2 49 H pO2 65 Total CO2 26 ABG pH 7.32 L ABG O2 Saturation 90 L O2 Concentration % 40 Actual Respiration Rate 14 Tidal Volume 500 Physical Exam - Physical Exam General Appearance: alert, no apparent distress EENT: normal ENT inspection, scleral icterus (R), scleral icterus (L) Neck: normal inspection Respiratory: lungs clear, normal breath sounds Cardiac/Chest: regular rate, rhythm, No edema Abdomen: normal bowel sounds, non-tender Skin: normal color, warm/dry Extremities: normal inspection Neuro/Psych: alert, normal mood/affect, oriented x 3 ICD10 Worksheet Patient Problems: Problems Problem Status Onset Acute renal failure Acute Back pain Acute Cirrhosis Acute Elevated BUN Acute Elevated LFTs Acute Hyperkalemia Acute Abdominal pain Acute GI bleed Acute History of esophageal stricture Acute
[2018-02-05] MEDS ORDERED: FUROSEMIDE 40 MG/4 ML VIAL IVP ONE (12:53)
--- NOTE | 2018-02-05 12:53 | ASMTCMCOM ---
CM Note CM Note Notes: Patient's partner Duke states the home health care case manager with [facility] Hepatology Department would like us to call them. Left a message for Leah Villanueva ([phone]) director case management. Sola Bustos ([phone]) is the other director case management working with [facility] and Dr. Cabrera is the physician. CM will follow. Date Signed: 02/05/2018 12:53 PM Electronically Signed By:Rosi Trivedi LCSW
[2018-02-05] MEDS: CHOLECALCIFEROL VIT D3 1,000 UNITS TAB TUBE SCH (13:38)
[2018-02-05] MEDS: CALCIUM CARB W/VIT D 500 MG TAB TUBE SCH (13:38)
[2018-02-05] MEDS: fentaNYL/NACL 100 ML IV SCH (13:38)
--- NOTE | 2018-02-05 15:07 | HOSPPROG ---
Hospitalist Progress Note Assessment/Plan: 52 yo F with ESLD pw septic shock # Septic shock secondary to MSSA bacteremia (hypotension, tachycardia, tachypnea , elevated lactate, AMNA). Source unclear, possibly urine. MRI wihtout e/o source of infxn, echo negative. Repeat cxs from 02/01 negative. Changed ancef to zosyn given klebsiella in bronchial washings. # Acute hypoxic respiratory failure - CXR c/w ARDS, though volume overload may be contributing. P/F ratio 143. Continue lasix, abx. Remains intubated # Acute on chronic encephalopathy- suspect hepatic encephalopathy as well as toxic / metabolic with infection. Continue lactulose/rifaximin (ammonia trending down), tx of infection as above # A fib - Has had 2 brief episodes which both converted after Amio bolus. Monitoring. 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 She was previously on transplant list however her partner and [facility] took her off today. Bili remains quite elevated, though normal alk phos and AST/ALT. Suspicious she is still drinking. # Elevated troponin - mild bump in trop, likely strain in setting of sepsis and brief A fib, trending down # Pulmonary hypertension - PAP 72 on echo, unclear if acute or chronic. ?2/2 acute pulmonary process. Discussed with pulm. # Acute kidney injury - likely pre-renal / sepsis related. Improved with IVF's and vasopressor support. HyperK resolved # Hypernatremia - continue free water with tube feeds and continue to monitor # hypophosphatemia/hypoK/hypoMag: quite low, replete per protocol # Metabolic acidosis - likely combination of lactic acidosis as well as uremia. Resolved. # Back pain - this was patient's presenting complaint. Non-con MRI of lumbar spine neg for abscess, but subacute L4 compression fracture noted. # L4 compression fracture - subacute by MRI, reassess pain factor once her infectious status is improved # Diabetes mellitus type 2 - recent hemoglobin A1c measured at 7.3%. cont ssi # Thrombocytopenia-acute on chronic in setting of liver disease, monitoring # Agitation - prn Ativan, weaning precedex as above. Haldol d/c'd due to QT prolongation # FEN -TF at goal # DVT prophylaxis- compression devices. No heparin or Lovenox in light of acute kidney injury and thrombocytopenia. # Disposition- cont inpt / ICU. 40 minutes critical care. Subjective: no significant change overnight, remains unresponsive Objective: Vital Signs Temp Pulse Resp BP Pulse Ox 37.0 C 71 18 95/51 L 97 02/05/18 07:59 02/05/18 14:00 02/05/18 14:00 02/05/18 14:00 02/05/18 14:00 Microbiology 02/03/18 17:32 Gram Stain - Final Lung Bilateral - Bronchial Washings Bronchial Washings Culture - Final Klebsiella Aerogenes Laboratory Results 02/05/18 04:10 02/04/18 02/05/18 02/06/18 05:59 05:59 05:59 Intake Total 4096.9 5564 300 Output Total 3875 1775 Balance 221.9 3789 300 PT 21.2 SEC (12.0-15.0) H 01/31/18 05:00 INR 1.82 (0.83-1.16) H 01/31/18 05:00 intubated sedated icteric op clear rrr no mrg cta to ant exam soft nt nd trace ble edema sedated, unresponsive ICD10 Worksheet Patient Problems: Problems Problem Status Onset Acute renal failure Acute Back pain Acute Cirrhosis Acute Elevated BUN Acute Elevated LFTs Acute Hyperkalemia Acute Abdominal pain Acute GI bleed Acute History of esophageal stricture Acute
[2018-02-05] MEDS: LANSOPRAZOLE SUSP 30MG/10ML UDSYR (Adult) TUBE SCH (15:13)
[2018-02-05] MEDS ORDERED: POTASSIUM Cl (KCl) 100 ML IV ONE (16:00)
[2018-02-05] MEDS ORDERED: METOCLOPRAMIDE 10 MG/2 ML VIAL IVP ONE (16:06)
[2018-02-05] MEDS ORDERED: POTASSIUM Cl (KCl) 10 MEQ in NS 50 ML IV ONE (17:00)
[2018-02-05] MEDS ORDERED: POTASSIUM Cl (KCl) 50 ML IV ONE (21:02)
[2018-02-05] MEDS: PATCH REMOVAL 1 EA PATCH TD SCH (22:13)
[2018-02-06] MEDS: PIPERACILLIN/TAZO 3.375 GM/DEX 50 ML IV SCH ×5 (00:37→23:42)
[2018-02-06] MEDS ORDERED: POTASSIUM Cl (KCl) 50 ML IV ONE ×4 (02:30→21:17)
[2018-02-06] MEDS: INSULIN REGULAR HUMAN 100 UNIT/ML UNIT SC SCH ×6 (02:43→21:12)
[2018-02-06] MEDS: NOREPINEPHRINE BITARTRATE 4 MG in NS 500 ML IV SCH ×3 (04:22→21:10)
[2018-02-06 05:25] LABS: PLATELET COUNT 34 10^3/uL (150-400)
[2018-02-06] MEDS: PROPOFOL/EMULSION 100 ML IV SCH ×3 (05:43→23:36)
[2018-02-06] MEDS ORDERED: MAGNESIUM SULF 1 GM/DEXTROSE 100 ML IV ONE (06:17)
[2018-02-06] MEDS: fentaNYL/NACL 100 ML IV SCH (07:09)
[2018-02-06] MEDS: LIDOCAINE 4%/MENTHOL 1% PATCH TD SCH (07:23)
[2018-02-06] MEDS: LACTULOSE 20 GM/30 ML UDCUP TUBE SCH ×3 (07:23→21:02)
[2018-02-06] MEDS: CHLORHEXIDINE GLUCONATE 15 ML UDL PO SCH ×2 (07:23→21:00)
[2018-02-06] MEDS: RIFAXIMIN 550 MG TAB TUBE SCH ×2 (07:24→21:01)
[2018-02-06] MEDS ORDERED: MAGNESIUM SULF 2 GM/WATER 50 ML IV ONE (08:44)
[2018-02-06] MEDS: THIAMINE HCL 500 MG in NS 500 ML IV SCH (09:02)
[2018-02-06] MEDS ORDERED: THIAMINE HCL 100 MG TAB PO SCH (09:10)
--- NOTE | 2018-02-06 09:47 | PCMIDPN ---
Assessment/Plan: Assessment: MSSA bacteremia and sepsis-unclear source. 2D echo completed and no clear evidence of endocarditis. Non contrasted MRI of the lumbar spine did not show any significant pathology indicating diskitis or epidural collection but limited due to lack of contrast. Repeat blood cultures remain negative. Patient is still intubated but is weaning well on CPAP this morning. continuing on IV cefazolin to cover MSSA as well as Klebsiella from bronch wash. Plan: 1. Continue Zosyn. 2. Follow clinical course. Subjective: patient remains intubated but she is waking up more now that sedation is weaned. She is on CPAP trial and doing well. Not terribly interactive in that she does not follow commands. Objective: Zosyn # 1 Vital Signs Temp Pulse Resp BP Pulse Ox 37.1 C 102 H 21 H 127/60 H 90 L 02/06/18 05:00 02/06/18 09:04 02/06/18 09:00 02/06/18 09:00 02/06/18 09:04 Microbiology 02/01/18 05:12 Blood Culture - Final Blood 02/01/18 05:00 Blood Culture - Final Blood 02/03/18 17:32 Gram Stain - Final Lung Bilateral - Bronchial Washings Bronchial Washings Culture - Final Klebsiella Aerogenes Laboratory Results 02/06/18 05:00 02/06/18 05:00 02/05/18 02/06/18 02/07/18 05:59 05:59 05:59 Intake Total 5564 3192 Output Total 1775 1225 280 Balance 3789 1967 -280 C-Reactive Protein 85.9 mg/L (<10.0) H 02/02/18 06:00 - Physical Exam General Appearance: WD/WN, alert, apparent distress ( mild secondary to ET tube) , non-toxic Respiratory: lungs clear, normal breath sounds Cardiac/Chest: regular rate, rhythm, No tachycardia Skin: normal color, warm/dry, No rash ICD10 Worksheet Patient Problems: Problems Problem Status Onset Acute renal failure Acute Back pain Acute Cirrhosis Acute Elevated BUN Acute Elevated LFTs Acute Hyperkalemia Acute Abdominal pain Acute GI bleed Acute History of esophageal stricture Acute
[2018-02-06] MEDS ORDERED: METOCLOPRAMIDE 10 MG/2 ML VIAL IVP ONE (09:57)
--- NOTE | 2018-02-06 10:02 | PDINTPN ---
Field Captain Progress Note Assessment/Plan: Assessment: MSSA Bacteremia: ? due to UTI, spinal source. Changed Ancef->Zosyn to cover Klebsiella in sputum, antibiotics and evaluation for source being directed by ID. Repeat blood cultures negative. Non-contrast MRI spine and ECHO negative MANA: Non-oliguric. Resolved. Likely due to poor PO intake, bacteremia and possibly hepatic disease. Hypernatremia: Na normalized Hypokalemia: Resolved Hypotension: On NE to maintain BP since propofol and Fentanyl started, titrated down slightly. Hepatic encephalopathy: Now sedated. No BMs in 48+ hours despite lactulose Acute Hypoxemic Respiratory failure: Now down to FIO2 40% to maintain oxygen saturations. ABG with respiratory acidosis today. CXR showed extensive edema pattern, likely non-cardiogenic (ARDS), now improved but has effusions/basilar infiltrate. CVP a bit high at 14. Pulmonary HTN: "Moderate-Severe" on ECHO. May be due to and a contributor to hypoxemic respiratory failure. Hyperglycemia: BSs 200 Hypokalemia: Now normal Plan: Continue lactulose, Zosyn. Add Reglan. Lasix/albumin to try to diurese while maintaining BP/perfusion Try to reduce sedation and NE. Try vent weaning again. Continue insulin 35 minutes CC time addressing hypotension/pressors, vent weaning. 02/06/18 10:48 Subjective: Intubated, sedated Objective: Vital Signs Temp Pulse Resp BP Pulse Ox 37.1 C 83 16 127/60 H 94 02/06/18 05:00 02/06/18 09:46 02/06/18 09:46 02/06/18 09:46 02/06/18 09:46 Microbiology 02/01/18 05:12 Blood Culture - Final Blood 02/01/18 05:00 Blood Culture - Final Blood 02/03/18 17:32 Gram Stain - Final Lung Bilateral - Bronchial Washings Bronchial Washings Culture - Final Klebsiella Aerogenes Laboratory Results 02/06/18 05:00 02/06/18 05:00 02/05/18 02/06/18 02/07/18 05:59 05:59 05:59 Intake Total 5564 3192 Output Total 1775 1225 280 Balance 3789 1967 -280 PT 21.2 SEC (12.0-15.0) H 01/31/18 05:00 INR 1.82 (0.83-1.16) H 01/31/18 05:00 CXR: Diffuse infiltrates are better. Increased right effusion/infiltrate in base. Images reviewed by me. Microbiology 02/03/18 17:32 Lung Bilateral - Bronchial Washings Gram Stain - Final 02/03/18 17:32 Lung Bilateral - Bronchial Washings Bronchial Washings Culture - Final Klebsiella Aerogenes Physical Exam - Physical Exam General Appearance: No alert EENT: scleral icterus (R), scleral icterus (L) Neck: normal inspection Respiratory: normal breath sounds Cardiac/Chest: regular rate, rhythm, No edema Abdomen: normal bowel sounds, non-tender Skin: normal color, warm/dry Extremities: non-tender Neuro/Psych: No alert ICD10 Worksheet Patient Problems: Problems Problem Status Onset Acute renal failure Acute Back pain Acute Cirrhosis Acute Elevated BUN Acute Elevated LFTs Acute Hyperkalemia Acute Abdominal pain Acute GI bleed Acute History of esophageal stricture Acute
[2018-02-06] MEDS ORDERED: ALBUMIN 25% 200 ML IV ONE (10:28)
[2018-02-06] MEDS: FUROSEMIDE 40 MG/4 ML VIAL IVP SCH ×2 (10:40→21:01)
[2018-02-06] MEDS ORDERED: K PHOS 10 MMOL in D5W 250 ML IV ONE (12:00)
[2018-02-06] MEDS: CHOLECALCIFEROL VIT D3 1,000 UNITS TAB TUBE SCH (13:43)
[2018-02-06] MEDS: CALCIUM CARB W/VIT D 500 MG TAB TUBE SCH (13:43)
[2018-02-06] MEDS: LANSOPRAZOLE SUSP 30MG/10ML UDSYR (Adult) TUBE SCH (13:43)
--- NOTE | 2018-02-06 14:48 | HOSPPROG ---
Hospitalist Progress Note Assessment/Plan: 52 yo F with ESLD pw septic shock # Septic shock secondary to MSSA bacteremia (hypotension, tachycardia, tachypnea , elevated lactate, MANA). Source unclear, possibly urine. MRI wihtout e/o source of infxn, echo negative. Repeat cxs from 02/01 negative. Changed ancef to zosyn given klebsiella in bronchial washings. # Acute hypoxic respiratory failure - CXR c/w ARDS, improved aeration on most recent xrays Continue lasix, abx. Remains intubated # Acute on chronic encephalopathy- suspect hepatic encephalopathy as well as toxic / metabolic with infection. Continue lactulose/rifaximin (ammonia trending down), tx of infection as above # A fib - Has had 2 brief episodes which both converted after Amio bolus. Monitoring. 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 She was previously on transplant list however her partner and MDPOA took her off today. Bili remains quite elevated, though normal alk phos and AST/ALT. Suspicious she is still drinking. # Elevated troponin - mild bump in trop, likely strain in setting of sepsis and brief A fib, trending down # Pulmonary hypertension - PAP 72 on echo, unclear if acute or chronic. ?2/2 acute pulmonary process. Discussed with pulm. # Acute kidney injury - likely pre-renal / sepsis related. Improved with IVF's and vasopressor support. HyperK resolved # Hypernatremia - continue free water with tube feeds and continue to monitor # hypophosphatemia/hypoK/hypoMag: quite low, replete per protocol # Metabolic acidosis - likely combination of lactic acidosis as well as uremia. Resolved. # Back pain - this was patient's presenting complaint. Non-con MRI of lumbar spine neg for abscess, but subacute L4 compression fracture noted. # L4 compression fracture - subacute by MRI, reassess pain factor once her infectious status is improved # Diabetes mellitus type 2 - recent hemoglobin A1c measured at 7.3%. cont ssi # Thrombocytopenia-acute on chronic in setting of liver disease, monitoring # Agitation - prn Ativan, weaning precedex as above. Haldol d/c'd due to QT prolongation # FEN -TF at goal # DVT prophylaxis- compression devices. No heparin or Lovenox in light of acute kidney injury and thrombocytopenia. # Disposition- cont inpt / ICU. 40 minutes critical care. Subjective: no significant overnight events Objective: Vital Signs Temp Pulse Resp BP Pulse Ox 37.1 C 64 16 132/57 H 99 02/06/18 05:00 02/06/18 13:00 02/06/18 13:00 02/06/18 13:00 02/06/18 13:00 Microbiology 02/01/18 05:12 Blood Culture - Final Blood 02/01/18 05:00 Blood Culture - Final Blood 02/03/18 17:32 Gram Stain - Final Lung Bilateral - Bronchial Washings Bronchial Washings Culture - Final Klebsiella Aerogenes Laboratory Results 02/06/18 05:00 02/06/18 11:44 02/05/18 02/06/18 02/07/18 05:59 05:59 05:59 Intake Total 5564 3192 Output Total 1775 1225 1580 Balance 3789 1967 -1580 PT 21.2 SEC (12.0-15.0) H 01/31/18 05:00 INR 1.82 (0.83-1.16) H 01/31/18 05:00 intubated sedated icteric op clear rrr no mrg cta to ant exam soft nt nd trace ble edema sedated, unresponsive ICD10 Worksheet Patient Problems: Problems Problem Status Onset GI bleed Acute Cirrhosis Acute Abdominal pain Acute History of esophageal stricture Acute Acute renal failure Acute Back pain Acute Elevated LFTs Acute Elevated BUN Acute Hyperkalemia Acute
[2018-02-06] MEDS: PATCH REMOVAL 1 EA PATCH TD SCH (21:02)
[2018-02-07] MEDS: INSULIN REGULAR HUMAN 100 UNIT/ML UNIT SC SCH ×6 (00:41→21:47)
[2018-02-07] MEDS ORDERED: POTASSIUM Cl (KCl) 50 ML IV ONE ×3 (01:39→22:14)
[2018-02-07 05:00] LABS: PLATELET COUNT 38 10^3/uL (150-400)
[2018-02-07] MEDS: PIPERACILLIN/TAZO 3.375 GM/DEX 50 ML IV SCH ×4 (06:05→23:15)
[2018-02-07] MEDS ORDERED: MAGNESIUM SULF 1 GM/DEXTROSE 100 ML IV ONE (06:08)
[2018-02-07] MEDS: RIFAXIMIN 550 MG TAB TUBE SCH ×2 (08:48→21:46)
[2018-02-07] MEDS: CHLORHEXIDINE GLUCONATE 15 ML UDL PO SCH ×2 (08:48→21:46)
[2018-02-07] MEDS: LIDOCAINE 4%/MENTHOL 1% PATCH TD SCH (08:48)
[2018-02-07] MEDS: FUROSEMIDE 40 MG/4 ML VIAL IVP SCH ×2 (08:49→21:46)
[2018-02-07] MEDS: LACTULOSE 20 GM/30 ML UDCUP TUBE SCH ×3 (08:49→21:50)
[2018-02-07] MEDS ORDERED: THIAMINE HCL 100 MG TAB PO SCH (09:00)
--- NOTE | 2018-02-07 10:12 | PCMIDPN ---
Assessment/Plan: Assessment: MSSA bacteremia and sepsis-unclear source. 2D echo completed and no clear evidence of endocarditis. Non contrasted MRI of the lumbar spine did not show any significant pathology indicating diskitis or epidural collection but limited due to lack of contrast. Repeat blood cultures remain negative. Patient is still intubated however her wean yesterday was not successful. She tended to be agitated once sedation reduced enough to try to progress on the wean. Oxygenation suffered at that point. She remains now intubated and ventilated. Somewhat more communicative with family and nurses. Significant respiratory secretions. Plan: 1. Continue Zosyn. 2. Follow clinical course. 02/07/18 10:10 Subjective: Patient remains intubated and sedated. She failed on her weaning trials yesterday. This was due to agitation. According to her as well as the nurses she is somewhat more communicative today. No fevers. Objective: Zosyn # 2 Vital Signs Temp Pulse Resp BP Pulse Ox 37.7 C 83 21 H 122/50 H 96 02/07/18 08:00 02/07/18 09:00 02/07/18 09:00 02/07/18 09:00 02/07/18 09:00 Microbiology 02/01/18 05:12 Blood Culture - Final Blood 02/01/18 05:00 Blood Culture - Final Blood Laboratory Results 02/07/18 04:35 02/07/18 04:35 02/06/18 02/07/18 02/08/18 05:59 05:59 05:59 Intake Total 3192 2703.8 Output Total 1225 3780 Balance 1967 -1076.2 C-Reactive Protein 85.9 mg/L (<10.0) H 02/02/18 06:00 - Physical Exam General Appearance: WD/WN, no apparent distress, other (Intubated and sedated), No alert Respiratory: coarse breath sounds (Mildly coarse breath sounds bilaterally.), No lungs clear, No respiratory distress, No stridor, No wheezing Cardiac/Chest: regular rate, rhythm, No tachycardia Extremities: non-tender, normal inspection Abdomen: non-tender, soft Skin: normal color, warm/dry, No rash ICD10 Worksheet Patient Problems: Problems Problem Status Onset Acute renal failure Acute Back pain Acute Cirrhosis Acute Elevated BUN Acute Elevated LFTs Acute Hyperkalemia Acute Abdominal pain Acute GI bleed Acute History of esophageal stricture Acute
--- NOTE | 2018-02-07 10:55 | PDINTPN ---
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 due to UTI, spinal source. Changed Ancef->Zosyn to cover Klebsiella in sputum, antibiotics and evaluation for source being directed by ID. Repeat blood cultures negative. Non-contrast MRI spine and ECHO negative MANA: Non-oliguric. Resolved. Likely due to poor PO intake, bacteremia and possibly hepatic disease. Hypernatremia: Na normalized Hypokalemia: Resolved Hypotension: On NE to maintain BP since propofol and Fentanyl started, titrated down slightly. Hepatic encephalopathy: Now sedated. No BMs in 3 days despite lactulose Acute Hypoxemic Respiratory failure: Now down to FIO2 40% to maintain oxygen saturations. CXR showed extensive edema pattern, likely non-cardiogenic (ARDS), now improved but has effusions/basilar infiltrate. Fairly copious purulent secretions. CVP a bit high at 11. Pulmonary HTN: "Moderate-Severe" on ECHO. May be due to and a contributor to hypoxemic respiratory failure. Hyperglycemia: BSs 100s Hypokalemia: Now normal Constipation: No BM for 3 days despite Lactulose. Could make hepatic encephalopathy worse. Plan: Continue lactulose, Zosyn. Add Reglan scheduled. Lasix/albumin to try to diurese while maintaining BP/perfusion Try to reduce sedation and NE. MRI with contrast while sedated, then try sedation/vent weaning again. Will change Propofol to Precedex after MRI. Continue insulin 02/07/18 11:14 02/07/18 11:15 Subjective: Intubated, sedated Objective: Vital Signs Temp Pulse Resp BP Pulse Ox 37.7 C 95 18 133/51 H 96 02/07/18 08:00 02/07/18 10:00 02/07/18 10:00 02/07/18 10:00 02/07/18 10:00 Microbiology 02/01/18 05:12 Blood Culture - Final Blood 02/01/18 05:00 Blood Culture - Final Blood Laboratory Results 02/07/18 04:35 02/07/18 04:35 02/06/18 02/07/18 02/08/18 05:59 05:59 05:59 Intake Total 3192 2703.8 Output Total 1225 3780 Balance 1967 -1076.2 PT 21.2 SEC (12.0-15.0) H 01/31/18 05:00 INR 1.82 (0.83-1.16) H 01/31/18 05:00 ICD10 Worksheet Patient Problems: Problems Problem Status Onset Acute renal failure Acute Back pain Acute Cirrhosis Acute Elevated BUN Acute Elevated LFTs Acute Hyperkalemia Acute Abdominal pain Acute GI bleed Acute History of esophageal stricture Acute
[2018-02-07] MEDS: NOREPINEPHRINE BITARTRATE 4 MG in NS 500 ML IV SCH (11:08)
[2018-02-07] MEDS: PROPOFOL/EMULSION 100 ML IV SCH (11:08)
[2018-02-07] MEDS ORDERED: GADOBUTROL 10 ML VIAL IVP ONE (11:14)
[2018-02-07] MEDS: METOCLOPRAMIDE 10 MG/2 ML VIAL IVP SCH ×3 (13:44→23:15)
[2018-02-07] MEDS: CALCIUM CARB W/VIT D 500 MG TAB TUBE SCH (13:44)
[2018-02-07] MEDS: CHOLECALCIFEROL VIT D3 1,000 UNITS TAB TUBE SCH (13:44)
[2018-02-07] MEDS: ALBUMIN 25% 100 ML IV SCH ×3 (13:45→23:15)
[2018-02-07] MEDS: LANSOPRAZOLE SUSP 30MG/10ML UDSYR (Adult) TUBE SCH (13:45)
--- NOTE | 2018-02-07 14:19 | HOSPPROG ---
Hospitalist Progress Note Assessment/Plan: 52 yo F with ESLD pw septic shock # Septic shock secondary to MSSA bacteremia (hypotension, tachycardia, tachypnea , elevated lactate, MANA). Source unclear, possibly urine. MRI without e/o source of infxn, echo negative. Repeat cxs from 02/01 negative. Changed ancef to zosyn given klebsiella in bronchial washings. # Acute hypoxic respiratory failure - CXR c/w ARDS, improved aeration on most recent xrays Continue lasix, abx. Remains intubated # Acute on chronic encephalopathy- suspect hepatic encephalopathy as well as toxic / metabolic with infection. 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 She was previously on transplant list however her partner and MDPOA took her off today. Bili remains quite elevated, though normal alk phos and AST/ALT. # Elevated troponin - mild bump in trop, likely strain in setting of sepsis and brief A fib, trending down # Acute kidney injury - likely pre-renal / sepsis related. Improved with IVF's and vasopressor support. HyperK resolved # Hypernatremia - continue free water with tube feeds and continue to monitor # hypophosphatemia/hypoK/hypoMag: quite low, replete per protocol # Metabolic acidosis - Resolved. # a fib: monitoring # Back pain - this was patient's presenting complaint. Unclear if there is an infectious source in spine not seen on non con MRI so repeating with contrast today # L4 compression fracture - subacute by MRI, reassess pain factor once her infectious status is improved # Diabetes mellitus type 2 - recent hemoglobin A1c measured at 7.3%. cont ssi # Thrombocytopenia-acute on chronic in setting of liver disease, monitoring # FEN -TF at goal # DVT prophylaxis- compression devices. No heparin or Lovenox in light of acute kidney injury and thrombocytopenia. # Disposition- cont inpt / ICU. Subjective: no significant overnight events, patient remains intubated sedated Objective: Vital Signs Temp Pulse Resp BP Pulse Ox 37.7 C 95 18 133/51 H 96 02/07/18 08:00 02/07/18 10:00 02/07/18 10:00 02/07/18 10:00 02/07/18 10:00 Laboratory Results 02/07/18 04:35 03/02/07/18 02/08/18 05:59 05:59 05:59 Intake Total 3192 2703.8 Output Total 1225 3780 Balance 1967 -1076.2 PT 21.2 SEC (12.0-15.0) H 01/31/18 05:00 INR 1.82 (0.83-1.16) H 01/31/18 05:00 intubated sedated icteric op clear rrr no mrg cta to ant exam soft nt nd trace ble edema sedated, unresponsive ICD10 Worksheet Patient Problems: Problems Problem Status Onset Acute renal failure Acute Back pain Acute Cirrhosis Acute Elevated BUN Acute Elevated LFTs Acute Hyperkalemia Acute Abdominal pain Acute GI bleed Acute History of esophageal stricture Acute
[2018-02-07] MEDS: PATCH REMOVAL 1 EA PATCH TD SCH (21:47)
[2018-02-07] MEDS: DEXMEDETOMIDINE HCL 400 MCG in NS 100 ML IV SCH (21:47)
[2018-02-07] MEDS: fentaNYL/NACL 100 ML IV SCH (21:47)
[2018-02-08] MEDS: INSULIN REGULAR HUMAN 100 UNIT/ML UNIT SC SCH ×6 (01:22→20:55)
[2018-02-08] MEDS: ALBUMIN 25% 100 ML IV SCH (05:14)
[2018-02-08] MEDS: METOCLOPRAMIDE 10 MG/2 ML VIAL IVP SCH ×4 (05:14→23:34)
[2018-02-08] MEDS: DEXMEDETOMIDINE HCL 400 MCG in NS 100 ML IV SCH ×2 (05:14→22:39)
[2018-02-08] MEDS: PIPERACILLIN/TAZO 3.375 GM/DEX 50 ML IV SCH ×4 (05:14→23:35)
[2018-02-08 05:19] LABS: PLATELET COUNT 30 10^3/uL (150-400)
[2018-02-08] MEDS ORDERED: MAGNESIUM SULF 1 GM/DEXTROSE 100 ML IV ONE (06:08)
[2018-02-08] MEDS ORDERED: POTASSIUM Cl (KCl) 50 ML IV ONE ×2 (06:08→21:51)
[2018-02-08] MEDS: NOREPINEPHRINE BITARTRATE 4 MG in NS 500 ML IV SCH (07:30)
[2018-02-08] MEDS: LACTULOSE 20 GM/30 ML UDCUP TUBE SCH ×3 (09:18→20:22)
[2018-02-08] MEDS: CHLORHEXIDINE GLUCONATE 15 ML UDL PO SCH ×2 (09:18→20:21)
[2018-02-08] MEDS: FUROSEMIDE 40 MG/4 ML VIAL IVP SCH ×2 (09:18→20:21)
[2018-02-08] MEDS: THIAMINE HCL 100 MG TAB TUBE SCH (09:18)
[2018-02-08] MEDS: RIFAXIMIN 550 MG TAB TUBE SCH ×2 (09:19→20:22)
--- NOTE | 2018-02-08 10:08 | PCMIDPN ---
Assessment/Plan: Assessment: MSSA bacteremia and sepsis-unclear source. 2D echo completed and no clear evidence of endocarditis. Non contrasted MRI of the lumbar spine did not show any significant pathology indicating diskitis or epidural collection but limited due to lack of contrast. Repeat blood cultures remain negative. Patient is still intubated however her wean yesterday was not successful. She tended to be agitated once sedation reduced enough to try to progress on the wean. Oxygenation suffered at that point. She remains now intubated and ventilated. Somewhat more communicative with family and nurses. Significant respiratory secretions. Patient now with white blood cell count less than 5. Still afebrile. Still intubated and ventilated. Remains with an elevated total bilirubin. Plan: 1. Continue Zosyn. 2. Follow clinical course. Subjective: Patient remains intubated and sedated. Only on 40% FiO2. No new overnight events. Heart rate below 50 and sinus currently. Objective: Zosyn # 3 Vital Signs Temp Pulse Resp BP Pulse Ox 36.4 C 47 L 18 121/45 H 95 02/08/18 08:00 02/08/18 08:07 02/08/18 08:00 02/08/18 08:00 02/08/18 08:07 Laboratory Results 02/08/18 05:00 02/08/18 05:05 02/07/18 02/08/18 02/09/18 05:59 05:59 05:59 Intake Total 2703.8 2019 Output Total 3780 5200 Balance -1076.2 -3181 C-Reactive Protein 85.9 mg/L (<10.0) H 02/02/18 06:00 - Physical Exam General Appearance: WD/WN, no apparent distress, other (Intubated and sedated) Respiratory: lungs clear, normal breath sounds, No respiratory distress Cardiac/Chest: regular rate, rhythm, bradycardia Extremities: non-tender, normal inspection Skin: warm/dry, jaundice, No rash ICD10 Worksheet Patient Problems: Problems Problem Status Onset Acute renal failure Acute Back pain Acute Cirrhosis Acute Elevated BUN Acute Elevated LFTs Acute Hyperkalemia Acute Abdominal pain Acute GI bleed Acute History of esophageal stricture Acute
[2018-02-08] MEDS: LANSOPRAZOLE SUSP 30MG/10ML UDSYR (Adult) TUBE SCH (11:44)
[2018-02-08] MEDS: CALCIUM CARB W/VIT D 500 MG TAB TUBE SCH (11:47)
[2018-02-08] MEDS: CHOLECALCIFEROL VIT D3 1,000 UNITS TAB TUBE SCH (11:47)
[2018-02-08] MEDS: LIDOCAINE 4%/MENTHOL 1% PATCH TD SCH (11:51)
--- NOTE | 2018-02-08 12:03 | PDINTPN ---
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 due to UTI, spinal source. On Zosyn to cover Klebsiella in sputum. Repeat blood cultures negative. ECHO negative. MRI of the spine possibly suggestive of spinal osteomyelitis. Clarification needed. Infectious Disease is following and is aware. MANA: Non-oliguric. Resolved. Likely due to poor PO intake, bacteremia and possibly hepatic disease. Metabolic: On electrolyte replacement protocols. Elevated glucose: On sliding scale insulin. Hypotension: On NE to maintain BP. Chronic alcoholism: With end-stage cirrhosis by report, encephalopathy. Ammonia level now normalizing with lactulose Hepatic encephalopathy: Now sedated. No BMs in 3 days despite lactulose Acute Hypoxemic Respiratory failure: Now down to FIO2 40% to maintain oxygen saturations. CXR showed extensive edema pattern, possible non-cardiogenic (ARDS) , but effusions and infiltrates suggest a component of volume overload as well. Purulent secretions consistent with pneumonia/Klebsiella. On Precedex and low- dose fentanyl. Pulmonary HTN: "Moderate-Severe" on ECHO. May be due to and a contributor to hypoxemic respiratory failure. Nutrition: On tube feedings at a low rate secondary to ileus. Increasing as tolerated Plan: Continue ventilatory support with CPAP trials. Continue lactulose, rifaximin, Zosyn, and low-dose sedation. Continue Lasix/albumin for diuresis Wean norepinephrine as tolerated. Continue insulin. Await final spinal MRI results. Follow laboratory, x-ray, arterial blood gas. Hopefully she will be able to be extubated in the next 24-48 hours. 50 min of critical care time spent directly with the patient. Discussed with nursing, respiratory, hospitalist, and the ICU multi disciplinary team. Subjective: Sedated, arouses weakly. On the ventilator. Appears comfortable. Objective: Vital Signs Temp Pulse Resp BP Pulse Ox 36.4 C 54 L 18 108/48 L 92 02/08/18 10:00 02/08/18 11:36 02/08/18 11:36 02/08/18 11:00 02/08/18 11:36 Laboratory Results 02/08/18 05:00 02/08/18 05:05 02/07/18 02/08/18 02/09/18 05:59 05:59 05:59 Intake Total 2703.8 2019 Output Total 3780 5200 Balance -1076.2 -3181 PT 21.2 SEC (12.0-15.0) H 01/31/18 05:00 INR 1.82 (0.83-1.16) H 01/31/18 05:00 Laboratory Tests 02/08/18 05:05 Calcium 8.6 Phosphorus 2.7 Magnesium 1.6 Total Bilirubin 11.2 H AST 27 ALT 27 Albumin 3.1 L CXR: Bilateral lower zone infiltrates/atelectasis/effusions. Improved with diuresis over the last 2 days. Lines and tubes in good position. Physical Exam - Physical Exam General Appearance: other (Sedated, on the ventilator) EENT: PERRL/EOMI, ET tube, other (NG to) Neck: normal inspection Respiratory: lungs clear (Anteriorly), decreased breath sounds (At the bases), rales, No rhonchi Cardiac/Chest: bradycardia (Sinus) Abdomen: soft, other (Stooling with lactulose), No normal bowel sounds (Present , decreased) Pelvic Exam: other (De Leon catheter in place. Increased urine output over the last 2 days) Skin: warm/dry, pallor Extremities: pedal edema (Trace) Neuro/Psych: no motor/sensory deficits (Moves all extremities), cognition abnormalities (Can't assess) ICD10 Worksheet Patient Problems: Problems Problem Status Onset GI bleed Acute Cirrhosis Acute Abdominal pain Acute History of esophageal stricture Acute Acute renal failure Acute Back pain Acute Elevated LFTs Acute Elevated BUN Acute Hyperkalemia Acute
--- NOTE | 2018-02-08 12:31 | ASMTCMCOM ---
CM Note CM Note Notes: Patient continues on the vent, follows commands, Bilateral PE's. Has not been able to work with therapies as yet. Date Signed: 02/08/2018 12:30 PM Electronically Signed By:Tran Calvillo LCSW
[2018-02-08] MEDS ORDERED: POTASSIUM Cl (KCl) 50 ML IV SCH (13:00)
[2018-02-08] MEDS ORDERED: POTASSIUM Cl (KCl) 10 MEQ in D5W 50 ML IV SCH (13:30)
[2018-02-08] MEDS: POTASSIUM Cl (KCl) 10 MEQ in NS 50 ML IV SCH ×3 (15:00→16:44)
--- NOTE | 2018-02-08 16:33 | HOSPPROG ---
Hospitalist Progress Note Assessment/Plan: 52 yo F with ESLD pw septic shock # Septic shock secondary to MSSA bacteremia (hypotension, tachycardia, tachypnea , elevated lactate, MANA). Source possibly discitis given MRI findings and back pain on arrival. # Acute hypoxic respiratory failure - CXR c/w ARDS, improved aeration on repeat recent xrays Continue lasix, abx. Remains intubated # Acute on chronic encephalopathy- suspect hepatic encephalopathy as well as toxic / metabolic with infection. 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 She was previously on transplant list but currently off, trending LFTs # Elevated troponin - mild bump in trop, likely strain in setting of sepsis and brief A fib, trending down # Acute kidney injury - likely pre-renal / sepsis related. Improved with IVF's and vasopressor support. HyperK resolved # Hypernatremia - continue free water with tube feeds and continue to monitor # hypophosphatemia/hypoK/hypoMag: quite low, replete per protocol # Metabolic acidosis - Resolved. # a fib: monitoring # Back pain - this was patient's presenting complaint. Unclear if there is an infectious source in spine not seen on non con MRI so repeating with contrast today # L4 compression fracture - subacute by MRI, reassess pain factor once her infectious status is improved # Diabetes mellitus type 2 - recent hemoglobin A1c measured at 7.3%. cont ssi # Thrombocytopenia-acute on chronic in setting of liver disease, monitoring # FEN -TF at goal # DVT prophylaxis- compression devices. No heparin or Lovenox in light of acute kidney injury and thrombocytopenia. # Disposition- cont inpt / ICU. Subjective: no acute overnight events, patient continues to be intubated and sedated Objective: Vital Signs Temp Pulse Resp BP Pulse Ox 37 C 59 L 18 96/41 L 93 02/08/18 15:57 02/08/18 15:57 02/08/18 15:51 02/08/18 15:57 02/08/18 15:57 Laboratory Results 02/08/18 05:00 02/08/18 12:00 02/07/18 02/08/18 02/09/18 05:59 05:59 05:59 Intake Total 2703.8 2019 Output Total 3780 5200 1650 Balance -1076.2 -3181 -1650 PT 21.2 SEC (12.0-15.0) H 01/31/18 05:00 INR 1.82 (0.83-1.16) H 01/31/18 05:00 intubated sedated icteric op clear rrr no mrg cta to ant exam soft nt nd trace ble edema sedated, unresponsive ICD10 Worksheet Patient Problems: Problems Problem Status Onset Acute renal failure Acute Back pain Acute Cirrhosis Acute Elevated BUN Acute Elevated LFTs Acute Hyperkalemia Acute Abdominal pain Acute GI bleed Acute History of esophageal stricture Acute
[2018-02-08] MEDS: PATCH REMOVAL 1 EA PATCH TD SCH (20:21)
[2018-02-09] MEDS: fentaNYL/NACL 100 ML IV SCH (01:56)
[2018-02-09] MEDS: INSULIN REGULAR HUMAN 100 UNIT/ML UNIT SC SCH ×6 (02:01→22:45)
[2018-02-09 04:09] LABS: INR 2.24 (0.83-1.16); PROTIME(PATIENT) 24.8 SEC (12.0-15.0)
[2018-02-09] MEDS ORDERED: MAGNESIUM SULF 1 GM/DEXTROSE 100 ML IV ONE (04:26)
[2018-02-09] MEDS ORDERED: POTASSIUM Cl (KCl) 50 ML IV ONE (04:30)
[2018-02-09] MEDS: PIPERACILLIN/TAZO 3.375 GM/DEX 50 ML IV SCH ×2 (05:18→12:58)
[2018-02-09] MEDS: METOCLOPRAMIDE 10 MG/2 ML VIAL IVP SCH ×3 (05:18→18:13)
[2018-02-09 05:24] LABS: PLATELET COUNT 31 10^3/uL (150-400)
[2018-02-09] MEDS ORDERED: POTASSIUM Cl (KCl) 100 ML IV ONE (05:30)
[2018-02-09] MEDS: RIFAXIMIN 550 MG TAB TUBE SCH ×2 (08:19→20:51)
[2018-02-09] MEDS: CHLORHEXIDINE GLUCONATE 15 ML UDL PO SCH (08:19)
[2018-02-09] MEDS: LACTULOSE 20 GM/30 ML UDCUP TUBE SCH ×3 (08:19→21:45)
[2018-02-09] MEDS: FUROSEMIDE 40 MG/4 ML VIAL IVP SCH ×2 (08:20→20:51)
[2018-02-09] MEDS: THIAMINE HCL 100 MG TAB TUBE SCH (08:21)
--- NOTE | 2018-02-09 11:58 | PDINTPN ---
Chief Digital Media Officer Progress Note Assessment/Plan: Assessment: MSSA Bacteremia: ? due to UTI vs spinal source. On Zosyn to cover Klebsiella in sputum and MSSA. Antibiotics to be readjusted.. Repeat blood cultures negative. ECHO negative. MRI of the spine suggestive of spinal osteomyelitis at L4. Infectious Disease is following. MANA: Non-oliguric. Resolved. Likely due to poor PO intake, bacteremia and possibly hepatic disease. Metabolic: On electrolyte replacement protocols. Elevated glucose: On sliding scale insulin. Hypotension: On low-dose NE to maintain BP. Chronic alcoholism: With end-stage cirrhosis, encephalopathy, coagulopathy. Ammonia level now normalizing with lactulose. INR up today, approximately 2.2 Hepatic encephalopathy. Ammonia normalized yesterday with lactulose and rifaximin. Acute Hypoxemic Respiratory failure: On FIO2 40%. Tolerating CPAP weans for up to 2 hr without problems. Can be extubated today. CXR continues to show basilar infiltrates/atelectasis with a pulmonary edema pattern, possible non- cardiogenic (ARDS), but effusions and infiltrates suggest a component of volume overload as well. Purulent secretions consistent with pneumonia/Klebsiella. On Precedex and low-dose fentanyl: Will stop these for now. Pulmonary HTN: "Moderate-Severe" on ECHO. May be due to and a contributor to hypoxemic respiratory failure. Nutrition: On tube feedings at a low rate secondary to ileus. Increasing as tolerated. Plan: Extubate this morning in follow pulmonary status closely. Hold Precedex and fentanyl. Hopefully encephalopathy will start to clear more when she is off these medications. Continue lactulose, rifaximin, Zosyn, and low-dose sedation. Continue Lasix diuresis. Wean norepinephrine as tolerated. Continue insulin. Antibiotic changes per Infectious Disease. Follow laboratory, x-ray. 45 min of critical care time spent directly with the patient. Discussed with nursing, respiratory, hospitalist, and the ICU multi disciplinary team. Subjective: Sedated, on the ventilator. Looks to voice. Nods head yes appropriately to some questions but will not follow commands. Objective: Vital Signs Temp Pulse Resp BP Pulse Ox 37.2 C 64 18 112/51 L 97 02/09/18 08:00 02/09/18 10:10 02/09/18 10:00 02/09/18 10:10 02/09/18 10:00 Laboratory Results 02/09/18 05:00 04/03/18 03:30 02/08/18 02/09/18 02/10/18 05:59 05:59 05:59 Intake Total 2018 2226 Output Total 5200 3650 1650 Balance -3181 -1423 -1650 PT 24.8 SEC (12.0-15.0) H 02/09/18 03:30 INR 2.24 (0.83-1.16) H 02/09/18 03:30 Laboratory Tests 02/09/18 02/09/18 02/09/18 03:30 03:30 03:30 PT 24.8 H INR 2.24 H pCO2 pO2 ABG pH ABG O2 Saturation Calcium 8.9 Ionized Calcium 1.19 Phosphorus 2.8 Magnesium 1.6 Total Bilirubin 10.6 H Conjugated Bilirubin 5.3 H AST 29 ALT 29 Albumin 3.0 L 02/09/18 06:15 PT INR pCO2 44 H pO2 78 H ABG pH 7.45 ABG O2 Saturation 95 Calcium Ionized Calcium Phosphorus Magnesium Total Bilirubin Conjugated Bilirubin AST ALT Albumin CXR: Bibasilar infiltrates and atelectasis persist with improving upper lobe aeration. Lines and tubes in good position. Physical Exam - Physical Exam General Appearance: obtunded (Responds weakly to some questions, but will not follow commands) EENT: ET tube (Endotracheal tube and NG tube in place) Neck: normal inspection (No JVD. CVP 7) Respiratory: lungs clear (Anteriorly), decreased breath sounds (At bases), rales (Some rales at bases), No rhonchi, No wheezing Cardiac/Chest: regular rate, rhythm (Distant heart tones), No gallop Abdomen: normal bowel sounds, non-tender, soft, other (Stooling frequently with lactulose) Pelvic Exam: other (De Leon catheter in place. Good urine output. Output greater than input last several days) Skin: warm/dry, pallor Extremities: pedal edema (Trace) Neuro/Psych: no motor/sensory deficits (Moves all extremities equally), cognition abnormalities (Hard to assess with sedation and liver failure.) ICD10 Worksheet Patient Problems: Problems Problem Status Onset GI bleed Acute Cirrhosis Acute Abdominal pain Acute History of esophageal stricture Acute Acute renal failure Acute Back pain Acute Elevated LFTs Acute Elevated BUN Acute Hyperkalemia Acute
[2018-02-09] MEDS ORDERED: K PHOS 10 MMOL in D5W 250 ML IV ONE (12:00)
[2018-02-09] MEDS: CALCIUM CARB W/VIT D 500 MG TAB TUBE SCH (12:44)
[2018-02-09] MEDS: CHOLECALCIFEROL VIT D3 1,000 UNITS TAB TUBE SCH (12:44)
[2018-02-09] MEDS: LANSOPRAZOLE SUSP 30MG/10ML UDSYR (Adult) TUBE SCH (12:44)
--- NOTE | 2018-02-09 13:43 | PCMIDPN ---
Assessment/Plan: Assessment/Plan: 1. Sepsis with MSSA bacteremia and L4 osteomyelitis: -MRi with contrast done yesterday reviewed. -f/u blood cx from 02/01/18 ngtd -TTE without vegetations. -Currently on zosyn, given #2 -Will change back to Ancef for directive therapy for #1. see below -Will need prolonged course of antibiotics for this 2. Acute respiratory failure: - Likely pulm edema, ARDS with possible concomitant pneumonia -Bronchoscopy procedure note reviewed: thin brown secretions were suctioned back -Culture taken at that time grew Klebsiella. -Has been on zosyn since 02/05/18. Currently Day #5/7-10 -Change zosyn coverage to levaquin and plan for only short course therapy. -f/u CXR today reviewed. ongoing bilateral changes - care coordinated with RN, embroidery worker team Meds zosyn 3.375gm q6- 02/05/18 prevvious on ancef Subjective: Remains in ICu. Extubated earlier today. intermittent low grade temp. Not really answering questions. eyes opens. turns to verbal noise. loose stools. Objective: Vital Signs Temp Pulse Resp BP Pulse Ox 37.2 C 82 24 H 119/71 95 02/09/18 08:00 02/09/18 13:00 02/09/18 13:00 02/09/18 13:00 02/09/18 13:00 Laboratory Results 02/09/18 05:00 02/08/18 02/09/18 02/10/18 05:59 05:59 05:59 Intake Total 2018 2226 Output Total 5200 5280 1650 [facility]9 -1361 -1650 C-Reactive Protein 85.9 mg/L (<10.0) H 02/02/18 06:00 - Physical Exam General Appearance: other (eyes open, turns head to verbal cues) EENT: other (pt not opening mouth to exam) Respiratory: coarse breath sounds Cardiac/Chest: regular rate, rhythm Extremities: No swelling Abdomen: normal bowel sounds, non-tender, soft, No distended Skin: No erythema Neuro/Psych: other (unable to assess ) ICD10 Worksheet Patient Problems: Problems Problem Status Onset Acute renal failure Acute Back pain Acute Cirrhosis Acute Elevated BUN Acute Elevated LFTs Acute Hyperkalemia Acute Abdominal pain Acute GI bleed Acute History of esophageal stricture Acute
[2018-02-09] MEDS ORDERED: ceFAZolin 2 GM/DEXTROSE 100 ML IV SCH (14:00)
[2018-02-09] MEDS: ceFAZolin 2 GM/SWFI 2 GM/20 ML SYR IVP SCH ×2 (15:17→21:46)
[2018-02-09] MEDS ORDERED: POTASSIUM Cl (KCl) 50 ML IV SCH (15:23)
[2018-02-09] MEDS: LIDOCAINE 4%/MENTHOL 1% PATCH TD SCH (15:29)
--- NOTE | 2018-02-09 15:59 | HOSPPROG ---
Hospitalist Progress Note Assessment/Plan: 52 yo F with ESLD pw septic shock # Septic shock secondary to MSSA bacteremia (hypotension, tachycardia, tachypnea , elevated lactate, MANA). Source possibly discitis given MRI findings and back pain on arrival. # MSSA bacteremia: back on ancef, last days on zosyn, appreciate ID # Acute hypoxic respiratory failure - CXR c/w ARDS, improved aeration on repeat recent xrays Continue lasix, abx. Extubated today and doing well on minimal o2 # Acute on chronic encephalopathy- suspect hepatic encephalopathy as well as toxic / metabolic with infection. 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 She was previously on transplant list but currently off, trending LFTs # Elevated troponin - mild bump in trop, likely strain in setting of sepsis and brief A fib, trending down # Acute kidney injury - likely pre-renal / sepsis related. Improved with IVF's and vasopressor support. HyperK resolved # Hypernatremia - continue free water with tube feeds and continue to monitor # hypophosphatemia/hypoK/hypoMag: quite low, replete per protocol # Metabolic acidosis - Resolved. # a fib: monitoring # L4 compression fracture - subacute by MRI, reassess pain factor once her infectious status is improved # Diabetes mellitus type 2 - recent hemoglobin A1c measured at 7.3%. cont ssi # Thrombocytopenia-acute on chronic in setting of liver disease, monitoring # FEN -TF at goal # DVT prophylaxis- compression devices. No heparin or Lovenox in light of acute kidney injury and thrombocytopenia. # Disposition- cont inpt / ICU. > 40 min spent in critical care time as above, reviewed care plan with Dr. Cat and multidisciplinary team on rounds Subjective: extubated today, remains minimally interactive Objective: Vital Signs Temp Pulse Resp BP Pulse Ox 37.2 C 82 20 120/56 L 95 02/09/18 08:00 02/09/18 14:00 02/09/18 14:00 02/09/18 14:00 02/09/18 14:00 Microbiology 02/09/18 11:23 - Final Sputum, Induced/Suctioned Laboratory Results 02/09/18 05:00 02/09/18 13:20 02/08/18 02/09/18 02/10/18 05:59 05:59 05:59 Intake Total 2018 2226 Output Total 5202 8797 6338 Balance -2845 -1771 -2927 PT 24.8 SEC (12.0-15.0) H 02/09/18 03:30 INR 2.24 (0.83-1.16) H 02/09/18 03:30 agitated not following commands icteric op clear rrr no mrg cta to ant exam soft nt nd trace ble edema alrert intermittenly agitated ICD10 Worksheet Patient Problems: Problems Problem Status Onset Acute renal failure Acute Back pain Acute Cirrhosis Acute Elevated BUN Acute Elevated LFTs Acute Hyperkalemia Acute Abdominal pain Acute GI bleed Acute History of esophageal stricture Acute
[2018-02-09] MEDS: POTASSIUM Cl (KCl) 100 ML IV SCH ×2 (16:20→17:31)
[2018-02-09] MEDS: DEXMEDETOMIDINE HCL 400 MCG in NS 100 ML IV SCH (20:48)
[2018-02-10] MEDS: INSULIN REGULAR HUMAN 100 UNIT/ML UNIT SC SCH ×6 (01:45→22:24)
[2018-02-10] MEDS: METOCLOPRAMIDE 10 MG/2 ML VIAL IVP SCH ×4 (01:49→17:04)
[2018-02-10] MEDS: DEXMEDETOMIDINE HCL 400 MCG in NS 100 ML IV SCH (01:49)
[2018-02-10 04:23] LABS: PLATELET COUNT 32 10^3/uL (150-400)
[2018-02-10 04:30] LABS: INR 2.47 (0.83-1.16); PROTIME(PATIENT) 26.7 SEC (12.0-15.0)
[2018-02-10] MEDS ORDERED: POTASSIUM Cl (KCl) 50 ML IV ONE ×2 (05:22→08:20)
[2018-02-10] MEDS: ceFAZolin 2 GM/SWFI 2 GM/20 ML SYR IVP SCH ×3 (05:30→22:23)
[2018-02-10] MEDS ORDERED: MAGNESIUM SULF 2 GM/WATER 50 ML IV ONE (08:19)
[2018-02-10] MEDS: NOREPINEPHRINE BITARTRATE 4 MG in NS 500 ML IV SCH (08:41)
[2018-02-10] MEDS: FUROSEMIDE 40 MG/4 ML VIAL IVP SCH ×2 (09:23→22:23)
[2018-02-10] MEDS: LACTULOSE 20 GM/30 ML UDCUP TUBE SCH ×3 (09:27→22:24)
[2018-02-10] MEDS: RIFAXIMIN 550 MG TAB TUBE SCH ×2 (09:28→22:25)
[2018-02-10] MEDS: THIAMINE HCL 100 MG TAB TUBE SCH (09:28)
--- NOTE | 2018-02-10 10:04 | HOSPPROG ---
Hospitalist Progress Note Assessment/Plan: #Septic shock: due to #MSSA bacteremia/L4 OM/discitis: 8 wks Ancef. Will change PICC out to single lumen once requiring less meds #Acute on chronic encephalopathy: multifactorial with hepatic enceph, acute illness -cont abx as above -titrate lactulose for 1-2 BMs daily, rifaximin #Hypomagnesium: replete #Macrocytic anemia: due to Etoh #Thrombocytopenia: no e/o bleeding #Bradycardia: due to Precedex. Improving with Precedex wean #Hypernatremia: cont free water via NG #Atrial fib: #Diet: tubes feeds #Disp: cont inpatient admission for IV abx Subjective: bradycardia to 38 this morning Objective: Vital Signs Temp Pulse Resp BP Pulse Ox 36.9 C 46 L 16 137/53 H 100 02/10/18 08:33 02/10/18 08:33 02/10/18 08:33 02/10/18 08:33 02/10/18 08:33 Microbiology 02/09/18 11:23 - Final Sputum, Induced/Suctioned Laboratory Results 02/10/18 04:05 02/10/18 04:05 02/09/18 02/10/18 02/11/18 05:59 05:59 05:59 Intake Total 2227 1675 Output Total 3650 4450 Balance -1423 -2775 PT 26.7 SEC (12.0-15.0) H 02/10/18 04:05 INR 2.47 (0.83-1.16) H 02/10/18 04:05 - Physical Exam Constitutional: chronically ill appearing Eyes: PERRL, icteric sclera Ears, Nose, Mouth, Throat: moist mucous membranes, poor dentition, dry mucous membranes Cardiovascular: bradycardia Respiratory: no respiratory distress Gastrointestinal: normoactive bowel sounds, soft, non-tender abdomen Skin: other (jaundiced) Neurologic: CN II-XII Intact, No AAOx3 Psychiatric: encephalopathic ICD10 Worksheet Patient Problems: Problems Problem Status Onset Acute renal failure Acute Back pain Acute Cirrhosis Acute Elevated BUN Acute Elevated LFTs Acute Hyperkalemia Acute Abdominal pain Acute GI bleed Acute History of esophageal stricture Acute
--- NOTE | 2018-02-10 12:45 | PCMIDPN ---
Assessment/Plan: # Sepsis due to MSSA bacteremia and L4 OM/discitis: blood cultures cleared, ECHO neg --cefazolin for 8 weeks --will need PICC exchange, wait till off more meds so that can step down to single lumen # Cirrhosis: anemia, thrombocytopenia. Known varices. still encephalopathic # Possible HAP: cx show Klebs, relatively stable on 2L O2 since dc. Day #04/15 of therapy. IV levofloxacin, not taking any PO yet due to encephalopathy. MAR adjusted meds cefazolin 2gm IV q8, 01/31-, 02/09- current levoflox 750 #2 (#67 total therapy for PNA) zosyn 02/05-02/09 micro 01/30 blood cx (2) MSSA 02/01 blood cx (2) Neg 02/03 BAL: klebsiella Subjective: still on a little bit of Levophed and Precedex confused, no c/o Objective: Vital Signs Temp Pulse Resp BP Pulse Ox 37 C 52 L 16 113/59 L 98 02/10/18 12:00 02/10/18 12:00 02/10/18 12:00 02/10/18 12:00 02/10/18 12:00 Microbiology 02/09/18 11:23 - Final Sputum, Induced/Suctioned Laboratory Results 02/10/18 04:05 02/10/18 04:05 02/09/18 02/10/18 02/11/18 05:59 05:59 05:59 Intake Total 2227 1675 Output Total 3650 4450 Balance -1423 -2775 C-Reactive Protein 85.9 mg/L (<10.0) H 02/02/18 06:00 - Physical Exam General Appearance: alert, no apparent distress EENT: scleral icterus Respiratory: coarse breath sounds, No accessory muscle use Neck: supple Cardiac/Chest: bradycardia Extremities: No pedal edema Abdomen: non-tender, soft, No peritoneal signs Pelvic Exam: haider (luís/orange urine) Skin: jaundice, No rash Neuro/Psych: confused - Line/s RUE PICC Lines: No drainage, No erythema - Time Spent With Patient Time Spent with Patient: greater than 35 minutes Time Spent with Patient: Greater than 35 minutes spent on this patients care, greater than 50% of time spent counseling, educating, and coordinating care regarding the above mentioned plan. ICD10 Worksheet Patient Problems: Problems Problem Status Onset Acute renal failure Acute Back pain Acute Cirrhosis Acute Elevated BUN Acute Elevated LFTs Acute Hyperkalemia Acute Abdominal pain Acute GI bleed Acute History of esophageal stricture Acute
--- NOTE | 2018-02-10 12:47 | PDINTPN ---
Shipper/Receiver Progress Note Assessment/Plan: Assessment: MSSA Bacteremia: ? due to UTI vs spinal source. On levaquin to cover Klebsiella in sputum and MSSA. Repeat blood cultures negative. ECHO negative. MRI of the spine suggestive of spinal osteomyelitis at L4. Infectious Disease is following. MANA: Non-oliguric. Resolved. Likely due to poor PO intake, bacteremia and possibly hepatic disease. Metabolic: On electrolyte replacement protocols. Elevated glucose: On sliding scale insulin. Hypotension: On low-dose NE to maintain BP. Chronic alcoholism: With end-stage cirrhosis, encephalopathy, coagulopathy. Ammonia level normalized with lactulose and rifaximin. INR up today, approximately 2.4 Hepatic encephalopathy. Ammonia normalized with lactulose and rifaximin. On low-dose Precedex for agitation, pulling at tubes, etc. Acute Hypoxemic Respiratory failure: On 2 L stable clinically but more opacification at the left base. Extubated yesterday. CXR also continues to show basilar infiltrates/atelectasis/effusions with a pulmonary edema pattern despite increasing urine output. Also possible component of non-cardiogenic ( ARDS) initially. . Pulmonary HTN: "Moderate-Severe" on ECHO. May be due to and a contributor to hypoxemic respiratory failure. Nutrition: On tube feedings. Increasing as tolerated. Plan: Continue care in the intensive care unit. Hold Precedex if possible. Will try Haldol p.r.n. Instead. Hopefully encephalopathy will continue to clear. Continue lactulose, rifaximin, antibiotics, and low-dose sedation if needed. Continue Lasix diuresis. Wean norepinephrine as tolerated. Continue insulin. Follow laboratory, x-ray, clinical status. 45 min of critical care time spent directly with the patient. Discussed with nursing, respiratory, hospitalist, and the ICU multi disciplinary team. Subjective: Lethargic, arouses, responds weakly. On Precedex for agitation. Objective: Vital Signs Temp Pulse Resp BP Pulse Ox 37 C 52 L 16 113/59 L 98 02/10/18 12:00 02/10/18 12:00 02/10/18 12:00 02/10/18 12:00 02/10/18 12:00 Microbiology 02/09/18 11:23 - Final Sputum, Induced/Suctioned Laboratory Results 02/10/18 04:05 02/10/18 04:05 02/09/18 02/10/18 02/11/18 05:59 05:59 05:59 Intake Total 2227 1675 Output Total 3650 0810 Balance -1423 -2775 PT 26.7 SEC (12.0-15.0) H 02/10/18 04:05 INR 2.47 (0.83-1.16) H 02/10/18 04:05 Laboratory Tests 02/10/18 02/10/18 02/10/18 04:05 04:05 04:05 PT 26.7 H INR 2.47 H Calcium 8.7 Ionized Calcium 1.19 Magnesium 1.4 L Total Bilirubin 9.4 H Conjugated Bilirubin 5.1 H AST 30 Albumin 2.8 L CXR: Increasing left lower lobe opacification. Likely secondary to consolidation as well as effusion/atelectasis. Physical Exam - Physical Exam General Appearance: obtunded, other (Arouses weakly) EENT: PERRL/EOMI, scleral icterus (R), scleral icterus (L), other (Oxygen in place at 2 L) Neck: normal inspection (No jugular venous distension) Respiratory: lungs clear (Anteriorly), decreased breath sounds, rales (Bibasilar ), No rhonchi Cardiac/Chest: bradycardia (Systolic murmur present, no gallop) Abdomen: normal bowel sounds, non-tender, soft, other (For 5 bowel movements yesterday, none today) Pelvic Exam: other (De Leon catheter in place.. Good urine output over the last 4 days. Output greater than input.) Skin: warm/dry, jaundice Extremities: pedal edema Neuro/Psych: no motor/sensory deficits (Moves all extremities), cognition abnormalities (Rn Cardiac Rehab, starting to respond. Appears to be oriented times to person and possibly place. On Precedex.) ICD10 Worksheet Patient Problems: Problems Problem Status Onset GI bleed Acute Cirrhosis Acute Abdominal pain Acute History of esophageal stricture Acute Acute renal failure Acute Back pain Acute Elevated LFTs Acute Elevated BUN Acute Hyperkalemia Acute
[2018-02-10] MEDS: CALCIUM CARB W/VIT D 500 MG TAB TUBE SCH (12:53)
[2018-02-10] MEDS: LANSOPRAZOLE SUSP 30MG/10ML UDSYR (Adult) TUBE SCH (12:53)
[2018-02-10] MEDS: CHOLECALCIFEROL VIT D3 1,000 UNITS TAB TUBE SCH (12:53)
[2018-02-10] MEDS: DEXMEDETOMIDINE HCL 400 MCG in D5W 100 ML IV SCH (12:54)
--- NOTE | 2018-02-10 14:12 | ASMTCMCOM ---
CM Note CM Note Notes: Patient continues to have confusion. Haldol PRN will be tried in hopes of it reducing confusion. Patient was extubated yesterday. Continue tube feedings, haider catheter. D/C plan remains TBD. CM will follow. Date Signed: 02/10/2018 02:11 PM Electronically Signed By:Rosi Trivedi LCSW
[2018-02-10] MEDS: POTASSIUM Cl (KCl) 50 ML IV SCH (22:23)
[2018-02-11] MEDS: POTASSIUM Cl (KCl) 50 ML IV SCH ×2 (00:45→00:46)
[2018-02-11] MEDS: HALOPERIDOL LACT 5 MG/ML INJ IVP PRN (00:47)
[2018-02-11] MEDS: INSULIN REGULAR HUMAN 100 UNIT/ML UNIT SC SCH ×3 (00:55→09:06)
[2018-02-11] MEDS: METOCLOPRAMIDE 10 MG/2 ML VIAL IVP SCH ×5 (01:03→23:24)
[2018-02-11] MEDS: DEXMEDETOMIDINE HCL 400 MCG in D5W 100 ML IV SCH (04:59)
[2018-02-11] MEDS: ceFAZolin 2 GM/SWFI 2 GM/20 ML SYR IVP SCH ×3 (06:22→21:54)
[2018-02-11] MEDS ORDERED: MAGNESIUM SULF 1 GM/DEXTROSE 100 ML IV ONE (07:48)
[2018-02-11] MEDS: FUROSEMIDE 40 MG/4 ML VIAL IVP SCH (08:08)
[2018-02-11] MEDS ORDERED: D50W 25 GM/50 ML SYR IVP PRN (09:20)
[2018-02-11] MEDS ORDERED: ALBUMIN 5% 500 ML IV ONE (10:28)
--- NOTE | 2018-02-11 11:16 | PCMIDPN ---
Assessment/Plan: Assessment/Plan: * MSSA bacteremia with associated L4 diskitis with underlying cirrhosis: Bacteremia has cleared. Patient pulled out PICC line overnight which would of required removal in the setting of bacteremia; given clearance of bacteremia new PICC line can be inserted at any point. Continue cefazolin with anticipated 8 week course of therapy. * Possible healthcare associated pneumonia: Today is 7 days of treatment with levofloxacin. Antibiotic therapy will stop after dose today. 02/11/18 11:13 Subjective: Patient complains of wanting water. Speech therapy eval plan for today. Up in chair earlier. Objective: Vital Signs Temp Pulse Resp BP Pulse Ox 37.2 C 57 L 22 H 100/41 L 96 02/11/18 08:00 02/11/18 10:00 02/11/18 10:00 02/11/18 10:00 02/11/18 10:00 Microbiology 02/09/18 11:23 - Final Sputum, Induced/Suctioned Laboratory Results 02/10/18 04:05 02/11/18 05:50 02/10/18 02/11/18 02/12/18 05:59 05:59 05:59 Intake Total 1675 2897 Output Total 4450 2050 770 Balance -2775 847 -770 C-Reactive Protein 85.9 mg/L (<10.0) H 02/02/18 06:00 Cefazolin # 3 Antibiotics # 6 Blood cultures x2 02/01/2018 no growth Chest x-ray with bibasilar infiltrates - Physical Exam General Appearance: no apparent distress, non-toxic EENT: scleral icterus, No conjunctival petechiae Respiratory: No respiratory distress Cardiac/Chest: regular rate, rhythm, No systolic murmur Abdomen: non-tender, No distended Skin: No embolic lesions ICD10 Worksheet Patient Problems: Problems Problem Status Onset Acute renal failure Acute Back pain Acute Cirrhosis Acute Elevated BUN Acute Elevated LFTs Acute Hyperkalemia Acute Abdominal pain Acute GI bleed Acute History of esophageal stricture Acute
--- NOTE | 2018-02-11 12:18 | HOSPPROG ---
Hospitalist Progress Note Assessment/Plan: #Septic shock: due to #MSSA bacteremia/L4 OM/discitis: 8 wks Ancef #Hypotension: off Levophed. Give albumin today. Hold Lasix #Acute on chronic encephalopathy: multifactorial with hepatic enceph, acute illness -cont abx as above -titrate lactulose for 1-2 BMs daily, rifaximin #Hypomagnesium: replete #HCAP: complete 7-day course abx today #Macrocytic anemia: due to Etoh #Thrombocytopenia: no e/o bleeding #Bradycardia: due to Precedex. Improving with Precedex wean #Hypernatremia: cont free water via NG #Atrial fib: NSR #Goals: significant other has a lot of stressors at home, taking care of sick family member, etc. Will need to discuss LTAC if qualifies vs. hospice #Diet: pulled NG yesterday. Speech eval today #Disp: cont inpatient admission for IV abx Subjective: mildly more alert today. 1 BM yesterday Objective: Vital Signs Temp Pulse Resp BP Pulse Ox 37.2 C 57 L 22 H 100/41 L 96 02/11/18 08:00 02/11/18 10:00 02/11/18 10:00 02/11/18 10:00 02/11/18 10:00 Microbiology 02/09/18 11:23 - Final Sputum, Induced/Suctioned Laboratory Results 02/10/18 04:05 02/11/18 05:50 02/10/18 02/11/18 02/12/18 05:59 05:59 05:59 Intake Total 1675 2897 Output Total 4450 2050 770 Balance -2775 847 -770 PT 26.7 SEC (12.0-15.0) H 02/10/18 04:05 INR 2.47 (0.83-1.16) H 02/10/18 04:05 - Time Spent With Patient Time Spent with Patient: greater than 35 minutes Time Spent with Patient: Greater than 35 minutes spent on this patients care, greater than 50% of time spent counseling, educating, and coordinating care regarding the above mentioned plan. - Physical Exam Constitutional: chronically ill appearing Eyes: icteric sclera Ears, Nose, Mouth, Throat: dry mucous membranes Cardiovascular: regular rate and rhythym Respiratory: no respiratory distress Gastrointestinal: normoactive bowel sounds, soft, non-tender abdomen, No tenderness Skin: warm Neurologic: CN II-XII Intact Psychiatric: encephalopathic ICD10 Worksheet Patient Problems: Problems Problem Status Onset Acute renal failure Acute Back pain Acute Cirrhosis Acute Elevated BUN Acute Elevated LFTs Acute Hyperkalemia Acute Abdominal pain Acute GI bleed Acute History of esophageal stricture Acute
[2018-02-11] MEDS: RIFAXIMIN 550 MG TAB TUBE SCH ×2 (12:28→20:39)
[2018-02-11] MEDS: CHOLECALCIFEROL VIT D3 1,000 UNITS TAB TUBE SCH (12:29)
[2018-02-11] MEDS: THIAMINE HCL 100 MG TAB TUBE SCH (12:29)
[2018-02-11] MEDS: CALCIUM CARB W/VIT D 500 MG TAB TUBE SCH (12:29)
[2018-02-11] MEDS: INSULIN LISPRO 100 UNIT/ML SC SCH ×2 (12:32→17:23)
[2018-02-11] MEDS: LACTULOSE 20 GM/30 ML UDCUP TUBE SCH ×3 (12:33→21:45)
--- NOTE | 2018-02-11 12:47 | PDINTPN ---
Marine Mechanic Progress Note Assessment/Plan: Assessment: MSSA Bacteremia: ? due to UTI vs spinal source. On levaquin to cover both MSSA and Klebsiella in the sputum. Recent blood cultures negative. ECHO negative. MRI of the spine suggestive of spinal osteomyelitis at L4. Infectious Disease is following. MANA: Non-oliguric. Resolved. Likely due to poor PO intake, bacteremia and possibly hepatic disease. Metabolic: On electrolyte replacement protocols. Elevated glucose: On sliding scale insulin. Hypotension: Blood pressures remain borderline. Pulled out PICC line yesterday thus is not currently on any pressor therapy. Received albumin. History chronic alcoholism: With end-stage cirrhosis, encephalopathy, coagulopathy. Ammonia level normalized with lactulose and rifaximin. INR elevated. No longer drinking by report. Was on the transplant list at [place], reportedly taken off?. Hepatic encephalopathy. Clearing slowly. Ammonia normalized several days ago with lactulose and rifaximin. On low-dose Precedex now as needed. She was on this last night secondary to increasing agitation. Off today. Acute Hypoxemic Respiratory failure: On 2-4 L. Stable clinically but more opacification at the left base. Extubated 02/09. CXR improved today but continues to show basilar infiltrates/atelectasis/effusions with a pulmonary edema pattern despite excellent urine output over the last several days with Lasix diuresis. Also possible component of non-cardiogenic (ARDS) initially. . Pulmonary HTN: "Moderate-Severe" on ECHO. May be due to and a contributor to hypoxemic respiratory failure. Nutrition: Pulled NG tube out. Starting to take oral purees with swallowing precautions. She appears to aspirate at times but has a good cough to clear aspirated material. Prognosis: Improving but remains somewhat guarded regarding return to independent function and the need for long-term care. At the present time she would appear to need an LTAC. However, if she continues to improve a SNF may be sufficient. Liver Transplant issues need to be readdressed however she does not appear to be a good candidate for this at the present time. Plan: Continue care in the intensive care unit. Hold Precedex if possible. Continue Haldol p.r.n. Await continued clearing of encephalopathy. Continue lactulose, rifaximin, antibiotics, and low-dose sedation if needed. Pull De Leon today and hold scheduled Lasix. However, she may need this p.r.n. Continue Albumin as needed. Continue insulin. Follow laboratory, x-ray intermittently, clinical status. 45 min of critical care time spent directly with the patient. Discussed with nursing, hospitalist, and the ICU multi disciplinary team. Subjective: Much more alert today. Able to talk and answer appropriately, albeit with some difficulty in quite slowly. Pulled out NG tube. Taking purees however she does cough with swallowing at times. Objective: Vital Signs Temp Pulse Resp BP Pulse Ox 37.2 C 57 L 22 H 100/41 L 96 02/11/18 08:00 02/11/18 10:00 02/11/18 10:00 02/11/18 10:00 02/11/18 10:00 Microbiology 02/09/18 11:23 - Final Sputum, Induced/Suctioned Laboratory Results 02/10/18 04:05 02/11/18 05:50 02/10/18 02/11/18 02/12/18 05:59 05:59 05:59 Intake Total 1675 2897 Output Total 4450 2050 770 Balance -2775 847 -770 PT 26.7 SEC (12.0-15.0) H 02/10/18 04:05 INR 2.47 (0.83-1.16) H 02/10/18 04:05 CXR: Improved basilar infiltrates and atelectasis. Remains"wet appearing" Physical Exam - Physical Exam General Appearance: alert, no apparent distress, other (Sitting up in bed) EENT: PERRL/EOMI, other (Nasal cannula at 2-4 L) Neck: normal inspection (No obvious jugular venous distension. Last CVP late yesterday 11) Respiratory: lungs clear (Anteriorly), decreased breath sounds (At bases), rales (Rales the posterior bases), No rhonchi, No wheezing Cardiac/Chest: bradycardia (Sinus), systolic murmur Abdomen: normal bowel sounds, non-tender, soft Pelvic Exam: other (De Leon catheter in place. Good urine output) Skin: warm/dry, pallor Extremities: pedal edema (Trace) Neuro/Psych: no motor/sensory deficits (Moves all extremities equally), cognition abnormalities (Improving) ICD10 Worksheet Patient Problems: Problems Problem Status Onset GI bleed Acute Cirrhosis Acute Abdominal pain Acute History of esophageal stricture Acute Acute renal failure Acute Back pain Acute Elevated LFTs Acute Elevated BUN Acute Hyperkalemia Acute
[2018-02-11] MEDS: LANSOPRAZOLE SUSP 30MG/10ML UDSYR (Adult) TUBE SCH (14:07)
[2018-02-11] MEDS ORDERED: POTASSIUM Cl (KCl) 100 ML IV SCH (14:45)
[2018-02-11] MEDS: POTASSIUM Cl (KCl) 10 MEQ in NS 100 ML IV SCH ×5 (14:58→21:55)
[2018-02-11] MEDS: traMADol 50 MG TAB PO PRN (20:39)
[2018-02-11] MEDS: FAMOTIDINE 20 MG TAB PO SCH (20:40)
[2018-02-11] MEDS: LORazepam 2 MG/ML INJ IVP PRN (22:23)
[2018-02-12] MEDS ORDERED: MAGNESIUM SULF 1 GM/DEXTROSE 100 ML IV ONE (04:38)
[2018-02-12] MEDS: POTASSIUM Cl (KCl) 10 MEQ in NS 100 ML IV SCH ×3 (05:25→08:44)
[2018-02-12] MEDS: METOCLOPRAMIDE 10 MG/2 ML VIAL IVP SCH ×4 (05:27→23:45)
[2018-02-12] MEDS: ceFAZolin 2 GM/SWFI 2 GM/20 ML SYR IVP SCH ×3 (06:10→21:18)
[2018-02-12] MEDS: INSULIN LISPRO 100 UNIT/ML SC SCH ×3 (07:58→18:16)
[2018-02-12] MEDS ORDERED: D5W 1,000 ML IV SCH (08:30)
[2018-02-12] MEDS: traMADol 50 MG TAB PO PRN ×2 (08:48→16:09)
[2018-02-12] MEDS: FAMOTIDINE 20 MG TAB PO SCH ×2 (08:48→19:43)
[2018-02-12] MEDS: LACTULOSE 20 GM/30 ML UDCUP TUBE SCH (08:49)
[2018-02-12] MEDS: RIFAXIMIN 550 MG TAB TUBE SCH (08:49)
[2018-02-12] MEDS: THIAMINE HCL 100 MG TAB TUBE SCH (08:49)
[2018-02-12] MEDS ORDERED: FUROSEMIDE 40 MG/4 ML VIAL IVP SCH (09:00)
--- NOTE | 2018-02-12 09:58 | HOSPPROG ---
Hospitalist Progress Note Assessment/Plan: #Septic shock: resolved. Due to bacteremia #MSSA bacteremia/L4 OM/discitis: 8 wks Ancef #Hypotension: resolved. Holding lasix #Acute on chronic encephalopathy: multifactorial with hepatic enceph, acute illness -cont abx as above -titrate lactulose for 1-2 BMs daily, rifaximin #Hypomagnesium: replete #HCAP: complete 7-day course abx today #Macrocytic anemia: due to Etoh #Thrombocytopenia: no e/o bleeding #Bradycardia: due to Precedex. Improving with Precedex wean #Hypernatremia: add D5W, repeat BMP this afternoon #Atrial fib: NSR now. #Goals: significant other has a lot of stressors at home, taking care of sick family member, etc. Will need to discuss SNF vs. LTAC vs. hospice. Palliative care meeting today #Diet: advancing diet guided by speech therapy #Disp: cont inpatient admission for IV abx Subjective: c/o low back pain Objective: Vital Signs Temp Pulse Resp BP Pulse Ox 37.4 C 94 22 H 124/85 H 95 02/12/18 08:00 02/12/18 08:00 02/12/18 08:00 02/12/18 08:00 02/12/18 08:00 Microbiology 02/09/18 11:23 - Final Sputum, Induced/Suctioned Laboratory Results 02/10/18 04:05 02/12/18 04:15 02/11/18 02/12/18 02/13/18 05:59 05:59 05:59 Intake Total 2897 1314.4 Output Total 2050 1345 375 Balance 847 -30.6 -375 PT 26.7 SEC (12.0-15.0) H 02/10/18 04:05 INR 2.47 (0.83-1.16) H 02/10/18 04:05 - Physical Exam Constitutional: chronically ill appearing Eyes: icteric sclera Ears, Nose, Mouth, Throat: dry mucous membranes Cardiovascular: regular rate and rhythym, No edema Respiratory: no respiratory distress, no rales or rhonchi Gastrointestinal: normoactive bowel sounds, soft, non-tender abdomen Genitourinary: No haider in urethra Musculoskeletal: other (no TTP over spine) Neurologic: other (alert to place, knows her boyfriend. Not to date), No asterixes ICD10 Worksheet Patient Problems: Problems Problem Status Onset Acute renal failure Acute Back pain Acute Cirrhosis Acute Elevated BUN Acute Elevated LFTs Acute Hyperkalemia Acute Abdominal pain Acute GI bleed Acute History of esophageal stricture Acute
--- NOTE | 2018-02-12 11:12 | PDINTPN ---
Jewel Gauger Progress Note Assessment/Plan: Assessment: MSSA Bacteremia: ? due to UTI vs spinal source. On levaquin to cover both MSSA and Klebsiella in the sputum. Repeat blood cultures negative but sputums remain positive for Klebsiella. ECHO negative. MRI of the spine suggestive of spinal osteomyelitis at L4. Infectious Disease is following. MANA: Non-oliguric. Resolved. Likely due to poor PO intake, bacteremia and possibly hepatic disease. Metabolic: Hypernatremic today, on D5 W. On electrolyte replacement protocols. Elevated glucose: On sliding scale insulin. Hypotension: Blood pressures improved. Pulled out PICC line, not requiring pressor therapy. Received albumin. History chronic alcoholism: With end-stage cirrhosis, encephalopathy, coagulopathy, icterus. Ammonia level normalized with lactulose and rifaximin. INR elevated. No longer drinking by report. Was on the transplant list at [place], reportedly taken off?. Hepatic encephalopathy. Clearing slowly. Ammonia normalized several days ago with lactulose and rifaximin. On low-dose Precedex now as needed. She was on this last night secondary to increasing agitation. Off today. Acute Hypoxemic Respiratory failure: Resolving, on 2 L. Stable clinically but has persistent opacification at the left base. Extubated 02/09. CXR improved but continues to show basilar infiltrates/atelectasis/effusions with a pulmonary edema pattern despite excellent urine output over the last several days with Lasix diuresis. Also possible component of non-cardiogenic (ARDS) initially. Pulmonary HTN: "Moderate-Severe" on ECHO. May be due to and a contributor to hypoxemic respiratory failure. Nutrition: Pulled NG tube out. Starting to take oral purees with swallowing precautions. She appears to aspirate at times but has a good cough to clear aspirated material. Prognosis: Improving but remains somewhat guarded regarding return to independent function and the need for long-term care. At the present time, with continued improvement, a SNF as opposed to LTAC should be sufficient. Liver Transplant issues need to be readdressed however she does not appear to be a good candidate for this at the present time. Plan: Continue care in the intensive care unit on step-down. Hold Precedex. Continue Haldol p.r.n. Await continued clearing of encephalopathy. Continue lactulose, rifaximin, antibiotics. Follow sodium, urine output, Lasix as needed. Continue Albumin as needed. Continue insulin. Follow laboratory, x- ray intermittently, clinical status. 35 min of critical care time spent directly with the patient. Discussed with nursing, hospitalist, and the ICU multi disciplinary team. Subjective: Up in chair, following commands, worked with PT. Remains somewhat somnolent but arouses much more easily. Oriented x2. Denies pain. Objective: Vital Signs Temp Pulse Resp BP Pulse Ox 37.4 C 96 21 H 125/54 H 90 L 02/12/18 08:00 02/12/18 10:00 02/12/18 10:00 02/12/18 10:00 02/12/18 10:00 Microbiology 02/09/18 11:23 - Final Sputum, Induced/Suctioned Sputum Culture - Final Klebsiella Aerogenes Laboratory Results 02/10/18 04:05 02/12/18 04:15 02/11/18 02/12/18 02/13/18 05:59 05:59 05:59 Intake Total 2897 1314.4 Output Total 2050 1345 375 Balance 847 -30.6 -375 PT 26.7 SEC (12.0-15.0) H 02/10/18 04:05 INR 2.47 (0.83-1.16) H 02/10/18 04:05 Laboratory Tests 02/12/18 04:15 Calcium 9.2 Magnesium 1.7 Physical Exam - Physical Exam General Appearance: no apparent distress, other (In chair, looking around, somnolent but arouses and responds slowly) EENT: PERRL/EOMI, other (Nasal cannula in place at 2 L) Neck: normal inspection (No JVD) Respiratory: lungs clear, decreased breath sounds (At bases), rhonchi (Few rhonchi with cough, possibly secondary to a intermittent aspiration in to upper trachea.), No rales Cardiac/Chest: regular rate, rhythm, systolic murmur, No gallop Abdomen: normal bowel sounds, non-tender, soft, hepatomegaly, other (Less stooling.) Skin: normal color, warm/dry Extremities: pedal edema (Trace) Neuro/Psych: no motor/sensory deficits (Moves all extremities equally), cognition abnormalities (Improving) ICD10 Worksheet Patient Problems: Problems Problem Status Onset GI bleed Acute Cirrhosis Acute Abdominal pain Acute History of esophageal stricture Acute Acute renal failure Acute Back pain Acute Elevated LFTs Acute Elevated BUN Acute Hyperkalemia Acute
[2018-02-12] MEDS: CALCIUM CARB W/VIT D 500 MG TAB PO SCH (12:31)
[2018-02-12] MEDS: CHOLECALCIFEROL VIT D3 1,000 UNITS TAB TUBE SCH (12:31)
--- NOTE | 2018-02-12 14:39 | PCMIDPN ---
Assessment/Plan: Assessment/Plan: * MSSA bacteremia with associated L4 diskitis with underlying cirrhosis: Tolerating cefazolin well. Blood cultures have documented clearing of bacteremia. Anticipate 8 week course of therapy given presence of diskitis. * Possible healthcare associated pneumonia: Completed 7 days of levofloxacin which has now been discontinued. 02/12/18 14:37 Subjective: Patient complains of low back pain. Sitting up in chair today. More alert. Objective: Vital Signs Temp Pulse Resp BP Pulse Ox 37.6 C 88 19 130/50 H 97 02/12/18 11:47 02/12/18 11:47 02/12/18 11:47 02/12/18 11:47 02/12/18 11:47 Microbiology 02/09/18 11:23 - Final Sputum, Induced/Suctioned Sputum Culture - Final Klebsiella Aerogenes Laboratory Results 02/10/18 04:05 02/12/18 12:30 02/11/18 02/12/18 02/13/18 05:59 05:59 05:59 Intake Total 2897 1314.4 Output Total 2050 1345 675 Balance 847 -30.6 -675 C-Reactive Protein 85.9 mg/L (<10.0) H 02/02/18 06:00 Cefazolin # 4 Antibiotics # 7 - Physical Exam General Appearance: no apparent distress, non-toxic EENT: scleral icterus, No thrush, No conjunctival petechiae Respiratory: No respiratory distress Cardiac/Chest: regular rate, rhythm, systolic murmur (2/6 right upper and left upper sternal borders) Abdomen: non-tender, No distended Back: No spine tenderness Skin: No embolic lesions ICD10 Worksheet Patient Problems: Problems Problem Status Onset Acute renal failure Acute Back pain Acute Cirrhosis Acute Elevated BUN Acute Elevated LFTs Acute Hyperkalemia Acute Abdominal pain Acute GI bleed Acute History of esophageal stricture Acute
[2018-02-12] MEDS ORDERED: POTASSIUM CL 10 MEQ TAB PO ONE (15:30)
[2018-02-12] MEDS ORDERED: POTASSIUM Cl (KCl) 100 ML IV SCH (15:30)
[2018-02-12] MEDS: LACTULOSE 20 GM/30 ML UDCUP PO SCH ×2 (15:59→21:20)
--- NOTE | 2018-02-12 16:17 | ASMTCMCOM ---
CM Note CM Note Notes: Met with patient, [facility] ([facility]), Chaplain Karly to discuss patient's d/c plan and the choices. Patient is willing to do SNF rehab for 30 days and we will set up outpatient palliative care support for her as well. [facility] states he cannot manage the level of care needs she has right now but hopes to be able to once she has completed the rehab program. [facility] states in order for her to get back on the transplant list she has to have improved health and they will have to start all over with a re-evaluation. We are trying to locate Dr. Cabrera's number so one of our physician's can speak to them directly and just update them on patient's medical condition. Referrals have been sent to [facility], [facility]alve, and [facility]. A [facility]TC 100 has been completed on patient and is in the chart. A referral has been sent to [facility] which has a good outpatient palliatve care program. Lucina Baer has left for the day so we need to initiate LTC Medicaid with her on Thursday. CM will follow. Discharge plan : SNF rehab with outpatient palliative care support. Date Signed: 02/12/2018 04:16 PM Electronically Signed By:Rosi Trivedi LCSW
[2018-02-12] MEDS: RIFAXIMIN 550 MG TAB PO SCH (19:43)
[2018-02-13] MEDS: traMADol 50 MG TAB PO PRN ×4 (00:57→22:18)
[2018-02-13 03:38] LABS: PLATELET COUNT 52 10^3/uL (150-400)
[2018-02-13] MEDS ORDERED: MAGNESIUM SULF 1 GM/DEXTROSE 100 ML IV ONE (04:19)
[2018-02-13] MEDS: POTASSIUM Cl (KCl) 10 MEQ in NS 100 ML IV SCH ×3 (05:01→07:40)
[2018-02-13] MEDS: ceFAZolin 2 GM/SWFI 2 GM/20 ML SYR IVP SCH ×3 (06:21→22:19)
[2018-02-13] MEDS: METOCLOPRAMIDE 10 MG/2 ML VIAL IVP SCH (06:21)
[2018-02-13] MEDS: RIFAXIMIN 550 MG TAB PO SCH ×2 (08:57→22:19)
[2018-02-13] MEDS: INSULIN LISPRO 100 UNIT/ML SC SCH ×3 (08:57→18:26)
[2018-02-13] MEDS: THIAMINE HCL 100 MG TAB PO SCH (08:59)
[2018-02-13] MEDS: LACTULOSE 20 GM/30 ML UDCUP PO SCH ×3 (08:59→22:18)
[2018-02-13] MEDS: FAMOTIDINE 20 MG TAB PO SCH ×2 (08:59→22:19)
[2018-02-13] MEDS ORDERED: PROTOCOL POTASSIUM 1 DOSE MISC PRN (10:37)
[2018-02-13] MEDS: D5W 1,000 ML IV SCH ×2 (12:10→14:29)
[2018-02-13] MEDS: CALCIUM CARB W/VIT D 500 MG TAB PO SCH (12:45)
[2018-02-13] MEDS: CHOLECALCIFEROL VIT D3 1,000 UNITS TAB PO SCH (12:45)
[2018-02-13] MEDS: LIDOCAINE 4%/MENTHOL 1% PATCH TD SCH (13:08)
--- NOTE | 2018-02-13 15:18 | ASMTCMCOM ---
CM Note CM Note Notes: Per ICU rounds, pt is currently off of the transplant list at [place], but will re-apply in the future. Call received from Beverly at [facility] (option 3). Beverly inquiring about pt's discharge and current plan of care. [facility] wishing to see pt for further discussion of needs. Beverly to follow up Wednesday 02/14 or Thursday 02/15 to schedule a time to meet with pt and family. Pt to discharge to SNF Rehab with outpatient [facility] support. [facility] is interested in accepting pt and will do an onsite visit Thursday. Still waiting to hear from [facility]alve and [facility]. CM will cont to follow. Current Discharge Plan: SNF Rehab with [facility] services Date Signed: 02/13/2018 03:17 PM Electronically Signed By:Quita Sheppard RN
--- NOTE | 2018-02-13 16:48 | HOSPPROG ---
Hospitalist Progress Note Assessment/Plan: #Septic shock: resolved. Due to bacteremia #MSSA bacteremia/L4 OM/discitis: 8 wks Ancef #Hypotension: resolved. Holding lasix #Acute on chronic encephalopathy: multifactorial with hepatic enceph, acute illness -cont abx as above -titrate lactulose for 1-2 BMs daily, rifaximin #Hypomagnesium: replete #Back pain: musk. Add Lidoderm patch; avoid centrally-acting medications #HCAP: s/p 7 days abx #Macrocytic anemia: due to Etoh #Thrombocytopenia: no e/o bleeding #Bradycardia: due to Precedex. Improving with Precedex wean #Hypernatremia: cont D5W #Atrial fib: NSR now. #Diet: advancing diet guided by speech therapy #Disp: [facility] to eval on Thursday with [facility] Subjective: more interactive today. paraspinal back pain Objective: Vital Signs Temp Pulse Resp BP Pulse Ox 37.6 C 99 22 H 113/61 96 02/13/18 03:30 02/13/18 11:35 02/13/18 11:35 02/13/18 11:35 02/13/18 11:35 Laboratory Results 02/13/18 03:25 02/13/18 03:25 02/12/18 02/13/18 02/14/18 05:59 05:59 05:59 Intake Total 1314.4 2612 Output Total 1345 1475 Balance -30.6 1137 PT 26.7 SEC (12.0-15.0) H 02/10/18 04:05 INR 2.47 (0.83-1.16) H 02/10/18 04:05 - Time Spent With Patient Time Spent with Patient: greater than 35 minutes Time Spent with Patient: Greater than 35 minutes spent on this patients care, greater than 50% of time spent counseling, educating, and coordinating care regarding the above mentioned plan. - Physical Exam Constitutional: chronically ill appearing Eyes: icteric sclera Ears, Nose, Mouth, Throat: dry mucous membranes Cardiovascular: regular rate and rhythym, No no murmur, rub, or gallop Respiratory: reduced air movement Gastrointestinal: normoactive bowel sounds, soft, non-tender abdomen Genitourinary: no bladder fullness Skin: warm Musculoskeletal: generalized weakness, other (paraspinal lumbar pain, no TTP over spine) Neurologic: other (alert to place, president) Psychiatric: encephalopathic ICD10 Worksheet Patient Problems: Problems Problem Status Onset Acute renal failure Acute Back pain Acute Cirrhosis Acute Elevated BUN Acute Elevated LFTs Acute Hyperkalemia Acute Abdominal pain Acute GI bleed Acute History of esophageal stricture Acute
--- NOTE | 2018-02-13 17:04 | PDINTPN ---
Outsole Beveler Progress Note Assessment/Plan: Assessment: MSSA Bacteremia: ? due to UTI vs spinal source. On levaquin to cover both MSSA and Klebsiella in the sputum. Repeat blood cultures negative but sputums remain positive for Klebsiella. ECHO negative. MRI of the spine suggestive of spinal osteomyelitis at L4. Infectious Disease is following. MANA: Non-oliguric. Resolved. Likely due to poor PO intake, bacteremia and possibly hepatic disease. Metabolic: Hypernatremic: 150, on D5 W. On electrolyte replacement protocols. Elevated glucose: On sliding scale insulin. Hypotension: Blood pressures improved. Pulled out PICC line, not requiring pressor therapy. Received albumin. History chronic alcoholism: With end-stage cirrhosis, encephalopathy, coagulopathy, icterus. Ammonia level normalized with lactulose and rifaximin. INR elevated. No longer drinking by report. Was on the transplant list at [place], reportedly taken off?. Hepatic encephalopathy. Clearing slowly. Ammonia normalized several days ago with lactulose and rifaximin. On low-dose Precedex for a number of days but off this now and did not need it last night. \\ Acute Hypoxemic Respiratory failure: Resolving, on 2 L. Stable clinically but has persistent opacification at the left base. Extubated 02/09. CXR improved but continues to show basilar infiltrates/atelectasis/effusions with a pulmonary edema pattern despite excellent urine output over the last several days with Lasix diuresis. Also possible component of non-cardiogenic (ARDS) initially. Will continue Lasix intermittently if needed. Pulmonary HTN: "Moderate-Severe" on ECHO. May be due to and a contributor to hypoxemic respiratory failure. Nutrition: Pulled NG tube out. Taking oral purees with swallowing precautions. She appears to aspirate at times but has a good cough to clear aspirated material. Prognosis: Improving, but remains somewhat guarded regarding return to independent function and the need for long-term care. At the present time, with continued improvement, a SNF as opposed to LTAC should be sufficient. Liver Transplant issues need to be readdressed however she does not appear to be a good candidate for this at the present time. Plan: Continue care in the intensive care unit on step-down. Hold Precedex. Haldol if needed. Await continued clearing of encephalopathy. Continue lactulose, rifaximin, antibiotics. Follow sodium, urine output. Give Lasix as needed. Continue Albumin as needed. Continue insulin. Follow laboratory, x- ray intermittently, clinical status. 35 min of critical care time spent directly with the patient. Discussed with nursing, hospitalist, and the ICU multi disciplinary team. Subjective: Somewhat life educator today but restless, impulsive. Oriented x1, sometimes x2. Denies chest pain pain or shortness of breath Objective: Vital Signs Temp Pulse Resp BP Pulse Ox 37.4 C 90 14 125/62 H 93 02/13/18 16:00 02/13/18 16:00 02/13/18 16:00 02/13/18 16:00 02/13/18 16:00 Laboratory Results 02/13/18 03:25 02/13/18 03:25 02/12/18 02/13/18 02/14/18 05:59 05:59 05:59 Intake Total 1314.4 2612 Output Total 1345 1475 Balance -30.6 1137 PT 26.7 SEC (12.0-15.0) H 02/10/18 04:05 INR 2.47 (0.83-1.16) H 02/10/18 04:05 Laboratory Tests 02/13/18 02/13/18 02/13/18 03:25 07:48 11:34 POC Glucose 171 H 182 H Calcium 9.4 Magnesium 1.6 Physical Exam - Physical Exam General Appearance: mild distress (At times), other (Restless, up in chair) EENT: PERRL/EOMI, other (Nasal cannula in place at 2 L) Neck: normal inspection (No obvious jugular venous distension) Respiratory: lungs clear (Anteriorly), decreased breath sounds (At bases, especially on left) Cardiac/Chest: regular rate, rhythm, systolic murmur, No gallop Abdomen: normal bowel sounds, non-tender, soft, hepatomegaly Pelvic Exam: other (De Leon catheter out) Skin: normal color, warm/dry Extremities: pedal edema (Trace) Neuro/Psych: no motor/sensory deficits (Moves all extremities equally), cognition abnormalities (Persists. Oriented x1 or 2) ICD10 Worksheet Patient Problems: Problems Problem Status Onset GI bleed Acute Cirrhosis Acute Abdominal pain Acute History of esophageal stricture Acute Acute renal failure Acute Back pain Acute Elevated LFTs Acute Elevated BUN Acute Hyperkalemia Acute
--- NOTE | 2018-02-13 17:57 | PCMIDPN ---
Assessment/Plan: Assessment/Plan: 1. Sepsis with MSSA bacteremia and L4 osteomyelitis: -MRi with contrast reviewed. -f/u blood cx from 02/01/18 ngtd -TTE without vegetations. - lab noted. wc 3.2 -On Ancef for directive therapy for #1. see below -Will need 8 weeks therapy - care coordinated with hospitalist and metal mixer team 2. Acute respiratory failure: - Likely pulm edema, ARDS with possible concomitant pneumonia -Bronchoscopy procedure note reviewed: thin brown secretions were suctioned back -Culture taken at that time grew Klebsiella. -s/p treatment with zosyn, followed by levaquin. Meds ancef 2g q8- 02/09/18 zosyn 3.375gm q6- 02/05/18-02/09/18 previous on ancef Subjective: afebrile. remains in SDU. sitting in chair. restless. wants to go home. denies sob. had loose stools days previous, none today so far. Objective: Vital Signs Temp Pulse Resp BP Pulse Ox 37.4 C 90 14 125/62 H 93 02/13/18 16:00 02/13/18 16:00 02/13/18 16:00 02/13/18 16:00 02/13/18 16:00 Laboratory Results 02/13/18 03:25 02/13/18 03:25 02/12/18 02/13/18 02/14/18 05:59 05:59 05:59 Intake Total 1314.4 2612 Output Total 1345 1475 Balance -30.6 1137 C-Reactive Protein 85.9 mg/L (<10.0) H 02/02/18 06:00 - Physical Exam General Appearance: alert, no apparent distress, other (much less disoriented than when i saw her last. wants to go home) Respiratory: coarse breath sounds Cardiac/Chest: regular rate, rhythm Extremities: No swelling Abdomen: normal bowel sounds, soft, other (mild tenderness RUQ. ), No distended Skin: No erythema ICD10 Worksheet Patient Problems: Problems Problem Status Onset Acute renal failure Acute Back pain Acute Cirrhosis Acute Elevated BUN Acute Elevated LFTs Acute Hyperkalemia Acute Abdominal pain Acute GI bleed Acute History of esophageal stricture Acute
[2018-02-13] MEDS: PATCH REMOVAL 1 EA PATCH TD SCH (22:05)
[2018-02-14] MEDS ORDERED: POTASSIUM CL 10 MEQ TAB PO ONE (01:47)
[2018-02-14] MEDS: LORazepam 2 MG/ML INJ IVP PRN (02:15)
[2018-02-14] MEDS ORDERED: NS 500 ML IV ONE (03:01)
[2018-02-14] MEDS ORDERED: MAGNESIUM SULF 2 GM/WATER 50 ML IV ONE (04:10)
[2018-02-14] MEDS ORDERED: POTASSIUM CL 20 MEQ PKT PO ONE (04:15)
[2018-02-14] MEDS: traMADol 50 MG TAB PO PRN ×4 (04:31→22:16)
[2018-02-14] MEDS: ceFAZolin 2 GM/SWFI 2 GM/20 ML SYR IVP SCH ×3 (06:03→22:11)
[2018-02-14] MEDS: LIDOCAINE 4%/MENTHOL 1% PATCH TD SCH (09:25)
[2018-02-14] MEDS: THIAMINE HCL 100 MG TAB PO SCH (09:25)
[2018-02-14] MEDS: FAMOTIDINE 20 MG TAB PO SCH ×2 (09:25→22:11)
[2018-02-14] MEDS: RIFAXIMIN 550 MG TAB PO SCH ×2 (09:25→22:10)
[2018-02-14] MEDS: INSULIN LISPRO 100 UNIT/ML SC SCH ×3 (09:26→18:40)
[2018-02-14] MEDS: LACTULOSE 20 GM/30 ML UDCUP PO SCH ×3 (09:27→22:11)
[2018-02-14] MEDS: D5W 1,000 ML IV SCH (09:34)
--- NOTE | 2018-02-14 11:22 | PCMIDPN ---
Assessment/Plan: Assessment/Plan: 1. Sepsis with MSSA bacteremia and L4 osteomyelitis: -MRi with contrast reviewed. -f/u blood cx from 02/01/18 ngtd -TTE without vegetations. - lab noted. wbc 3.2 . no new wbc today. -On Ancef for directive therapy for #1. see below -Will need 8 weeks therapy - care coordinated with stippler team 2. Acute respiratory failure: - Likely pulm edema, ARDS with possible concomitant pneumonia -Bronchoscopy procedure note reviewed: thin brown secretions were suctioned back -Culture taken at that time grew Klebsiella. -s/p treatment with zosyn, followed by levaquin. Meds ancef 2g q8- 02/09/18---#14/ from negative blood cultures. zosyn 3.375gm q6- 02/05/18-02/09/18 -levaquin 02/09-02/11 previous on ancef Subjective: intermittent low grade temps. remains in SDU. more oriented. states belly pain better. feels better. no sob Objective: Vital Signs Temp Pulse Resp BP Pulse Ox 37.6 C 97 17 105/65 94 02/14/18 07:25 02/14/18 07:25 02/14/18 07:25 02/14/18 07:25 02/14/18 07:25 Laboratory Results 02/13/18 03:25 02/14/18 05:25 02/13/18 02/14/18 02/15/18 05:59 05:59 05:59 Intake Total 2612 2771 60 Output Total 1475 380 450 Balance 1137 2391 -390 C-Reactive Protein 85.9 mg/L (<10.0) H 02/02/18 06:00 - Physical Exam General Appearance: other (sleepy) Respiratory: lungs clear Cardiac/Chest: regular rate, rhythm Abdomen: normal bowel sounds, non-tender, soft, No distended ICD10 Worksheet Patient Problems: Problems Problem Status Onset Acute renal failure Acute Back pain Acute Cirrhosis Acute Elevated BUN Acute Elevated LFTs Acute Hyperkalemia Acute Abdominal pain Acute GI bleed Acute History of esophageal stricture Acute
--- NOTE | 2018-02-14 11:47 | PDINTPN ---
Claims Technician Progress Note Assessment/Plan: Assessment: MSSA Bacteremia: ? due to UTI vs spinal source. On levaquin to cover both MSSA and Klebsiella in the sputum. Repeat blood cultures negative but sputums remain positive for Klebsiella. ECHO negative. MRI of the spine suggestive of spinal osteomyelitis at L4. Infectious Disease is following. Will need prolonged IV antibiotics on discharge. MANA: Non-oliguric. Resolved. Likely due to poor PO intake, bacteremia and possibly hepatic disease. Metabolic: Hypernatremic: Improved, sodium 145 today. On electrolyte replacement protocols. Elevated glucose: On sliding scale insulin. Hypotension: Blood pressures improved. Pulled out PICC line, not requiring pressor therapy. Received albumin. History chronic alcoholism: With end-stage cirrhosis, encephalopathy, coagulopathy, icterus. Ammonia level normalized with lactulose and rifaximin. INR elevated. No longer drinking by report. Was on the transplant list at [place], reportedly taken off?. Hepatic encephalopathy. Clearing slowly. Ammonia normalized several days ago with lactulose and rifaximin. On low-dose Precedex for a number of days but off this now and did not need it last night. \\ Acute Hypoxemic Respiratory failure: Resolving, on 2 L. Stable clinically but has persistent opacification at the left base. Extubated 02/09. CXR improved but continues to show basilar infiltrates/atelectasis/effusions with a pulmonary edema pattern despite excellent urine output over the last several days with Lasix diuresis. Also possible component of non-cardiogenic (ARDS) initially. Will continue Lasix intermittently if needed. Pulmonary HTN: "Moderate-Severe" on ECHO. May be due to and a contributor to hypoxemic respiratory failure. Nutrition: Pulled NG tube out. Taking oral purees with swallowing precautions. She appears to aspirate at times but has a good cough to clear aspirated material. Prognosis: Improving, but remains somewhat guarded regarding return to independent function and may need long-term care. At the present time, with continued improvement, a SNF as opposed to LTAC should be sufficient. Liver Transplant issues need to be readdressed however she does not appear to be a good candidate for this at the present time. Plan: Continue care in the intensive care unit on step-down. Continues to need a sitter. Stop D5W, half-normal saline with potassium to start. Continue lactulose, rifaximin, antibiotics. Follow sodium, urine output. Give Lasix as needed. Albumin if needed. Continue insulin. Follow laboratory. Repeat x- ray tomorrow. Will get two view. 35 min of critical care time spent directly with the patient. Discussed with the patient's significant other, nursing, hospitalist, and the ICU multi disciplinary team. 1 Subjective: Somnolent, arouses. Remains confused, restless. Objective: Vital Signs Temp Pulse Resp BP Pulse Ox 37.6 C 97 17 105/65 94 02/14/18 07:25 02/14/18 07:25 02/14/18 07:25 02/14/18 07:25 02/14/18 07:25 Laboratory Results 02/13/18 03:25 02/14/18 05:25 02/13/18 02/14/18 02/15/18 05:59 05:59 05:59 Intake Total 2612 2771 60 Output Total 1475 380 450 Balance 1137 2391 -390 PT 26.7 SEC (12.0-15.0) H 02/10/18 04:05 INR 2.47 (0.83-1.16) H 02/10/18 04:05 Laboratory Tests 02/14/18 03:15 Calcium 7.9 L D Magnesium 1.3 L Physical Exam - Physical Exam General Appearance: other (Sleeping, arousable, responds) EENT: PERRL/EOMI, other (Nasal cannula at 2 L) Neck: normal inspection (No JVD obvious) Respiratory: lungs clear (Anteriorly), decreased breath sounds (At bases), rales (Left base posteriorly), No rhonchi, No wheezing Cardiac/Chest: regular rate, rhythm, systolic murmur Abdomen: normal bowel sounds, non-tender, soft, hepatomegaly Pelvic Exam: other (De Leon out) Skin: normal color, warm/dry Extremities: pedal edema (Trace) Neuro/Psych: no motor/sensory deficits (Moves all extremities equally), cognition abnormalities (Oriented variably between 1 and 2) ICD10 Worksheet Patient Problems: Problems Problem Status Onset GI bleed Acute Cirrhosis Acute Abdominal pain Acute History of esophageal stricture Acute Acute renal failure Acute Back pain Acute Elevated LFTs Acute Elevated BUN Acute Hyperkalemia Acute
[2018-02-14] MEDS: CALCIUM CARB W/VIT D 500 MG TAB PO SCH (12:38)
[2018-02-14] MEDS: CHOLECALCIFEROL VIT D3 1,000 UNITS TAB PO SCH (12:38)
[2018-02-14] MEDS: POTASSIUM Cl (KCl) 20 MEQ in 1/2 NS 1,000 ML IV SCH (12:39)
--- NOTE | 2018-02-14 14:36 | HOSPPROG ---
Hospitalist Progress Note Assessment/Plan: #Septic shock: resolved. Due to bacteremia #MSSA bacteremia/L4 OM/discitis: 8 wks Ancef #Acute on chronic encephalopathy: mild improvement -cont abx as above. Lactulose for 1-2 BMs daily, rifaximin #Hypomagnesium/hypokalemia: replete #Back pain: musk. Add Lidoderm patch; avoid centrally-acting medications #HCAP: s/p 7 days abx #Macrocytic anemia: due to Etoh #Thrombocytopenia: no e/o bleeding. Stable at 52 #Bradycardia: resolved once Precedex weaned off #Hypernatremia: resolved with IVFs #Atrial fib: NSR now. #Diet: advancing diet guided by speech therapy. No oral liquids. IVFs #Disp: [facility] to eval on Thursday with [facility] Subjective: pain in lower back better with tramadol Objective: Vital Signs Temp Pulse Resp BP Pulse Ox 38.0 C 84 16 93/69 L 98 02/14/18 12:00 02/14/18 12:00 02/14/18 12:00 02/14/18 12:00 02/14/18 12:00 Laboratory Results 02/13/18 03:25 02/14/18 05:25 02/13/18 02/14/18 02/15/18 05:59 05:59 05:59 Intake Total 2612 2771 60 Output Total 1475 380 450 Balance 1137 2391 -390 PT 26.7 SEC (12.0-15.0) H 02/10/18 04:05 INR 2.47 (0.83-1.16) H 02/10/18 04:05 - Physical Exam Constitutional: chronically ill appearing Eyes: icteric sclera Ears, Nose, Mouth, Throat: dry mucous membranes Cardiovascular: regular rate and rhythym Gastrointestinal: normoactive bowel sounds, soft, non-tender abdomen Genitourinary: no bladder fullness Musculoskeletal: other (roll belt in place) Neurologic: CN II-XII Intact, other (alert to self) Psychiatric: encephalopathic, other (more alert today; still not following most commands) ICD10 Worksheet Patient Problems: Problems Problem Status Onset Acute renal failure Acute Back pain Acute Cirrhosis Acute Elevated BUN Acute Elevated LFTs Acute Hyperkalemia Acute Abdominal pain Acute GI bleed Acute History of esophageal stricture Acute
[2018-02-14] MEDS: PATCH REMOVAL 1 EA PATCH TD SCH (22:09)
[2018-02-15] MEDS: LORazepam 2 MG/ML INJ IVP PRN (01:22)
[2018-02-15] MEDS: ceFAZolin 2 GM/SWFI 2 GM/20 ML SYR IVP SCH ×3 (04:57→22:59)
[2018-02-15] MEDS: traMADol 50 MG TAB PO PRN ×4 (04:57→22:58)
[2018-02-15] MEDS: POTASSIUM Cl (KCl) 20 MEQ in 1/2 NS 1,000 ML IV SCH ×2 (04:58→19:12)
[2018-02-15] MEDS: LACTULOSE 20 GM/30 ML UDCUP PO SCH ×3 (08:00→19:44)
[2018-02-15] MEDS: RIFAXIMIN 550 MG TAB PO SCH ×2 (08:01→21:43)
[2018-02-15] MEDS: FAMOTIDINE 20 MG TAB PO SCH ×2 (08:01→21:44)
[2018-02-15] MEDS: LIDOCAINE 4%/MENTHOL 1% PATCH TD SCH (08:01)
[2018-02-15] MEDS: INSULIN LISPRO 100 UNIT/ML SC SCH ×3 (08:01→17:09)
[2018-02-15] MEDS: THIAMINE HCL 100 MG TAB PO SCH (08:01)
--- NOTE | 2018-02-15 12:15 | PDINTPN ---
Filter Press Pumper Progress Note Assessment/Plan: Assessment/plan: * MSSA Bacteremia: ? due to UTI vs spinal source. On levaquin to cover both MSSA and Klebsiella in the sputum. Repeat blood cultures negative but sputums remain positive for Klebsiella. ECHO negative. MRI of the spine suggestive of spinal osteomyelitis at L4. Infectious Disease is following. Will need prolonged IV antibiotics on discharge. * MANA: Non-oliguric. Resolved. * Metabolic: Hypernatremic: Resolved * Hypotension: Blood pressures improved. Pulled out PICC line, not requiring pressor therapy. Received albumin. * History chronic alcoholism: With end-stage cirrhosis, encephalopathy, coagulopathy, icterus. Ammonia level normalized with lactulose and rifaximin. INR elevated. No longer drinking by report. Was on the transplant list at [place], reportedly taken off?. * Hepatic encephalopathy. Very slow to improve. Ammonia normalized -continue lactulose * Acute Hypoxemic Respiratory failure: Resolved -check chest x-ray * Pulmonary HTN: "Moderate-Severe" on ECHO. May be due to and a contributor to hypoxemic respiratory failure. * Nutrition: Pulled NG tube out. Taking oral purees with swallowing precautions. She appears to aspirate at times but has a good cough to clear aspirated material. Subjective: Up in chair. Markedly confused. Somewhat agitated. Objective: Vital Signs Temp Pulse Resp BP Pulse Ox 37.2 C 96 19 107/84 H 94 02/15/18 11:25 02/15/18 11:25 02/15/18 11:25 02/15/18 11:25 02/15/18 11:25 Laboratory Results 02/13/18 03:25 02/15/18 05:18 02/14/18 02/15/18 02/16/18 05:59 05:59 05:59 Intake Total 2771 1450 Output Total 380 1750 Balance 2391 -300 PT 26.7 SEC (12.0-15.0) H 02/10/18 04:05 INR 2.47 (0.83-1.16) H 02/10/18 04:05 - Time Spent With Patient Time Spent With Patient: 25 min of time spent with patient, over 1/2 involved coordination of care counseling. Case discussed with Nursing and hospitalist. Physical Exam - Physical Exam General Appearance: mild distress, No alert EENT: PERRL/EOMI, normal ENT inspection Neck: non-tender, full range of motion Respiratory: crackles (Few basilar), No respiratory distress, No stridor, No wheezing Cardiac/Chest: systolic murmur Abdomen: normal bowel sounds, non-tender, soft Pelvic Exam: deferred Rectal: deferred Skin: normal color, warm/dry Extremities: normal range of motion, non-tender, normal inspection, normal capillary refill Neuro/Psych: cognition abnormalities, No no motor/sensory deficits, No oriented x 3 ICD10 Worksheet Patient Problems: Problems Problem Status Onset Acute renal failure Acute Back pain Acute Cirrhosis Acute Elevated BUN Acute Elevated LFTs Acute Hyperkalemia Acute Abdominal pain Acute GI bleed Acute History of esophageal stricture Acute
--- NOTE | 2018-02-15 13:21 | PCMIDPN ---
Assessment/Plan: Assessment/Plan: * MSSA bacteremia with associated L4 diskitis with underlying cirrhosis: Bacteremia has cleared. Remains encephalopathic although suspect this is most likely related to cirrhosis rather than ongoing infection. Continue cefazolin with anticipated 8 week course of therapy. * Possible healthcare associated pneumonia: Completed 7 days of levofloxacin. 02/15/18 13:18 Subjective: Patient confused. Objective: Vital Signs Temp Pulse Resp BP Pulse Ox 37.2 C 96 19 107/84 H 94 02/15/18 11:25 02/15/18 11:25 02/15/18 11:25 02/15/18 11:25 02/15/18 11:25 Laboratory Results 02/13/18 03:25 02/15/18 05:18 02/14/18 02/15/18 02/16/18 05:59 05:59 05:59 Intake Total 2771 1450 Output Total 380 1750 Balance 2391 -300 C-Reactive Protein 85.9 mg/L (<10.0) H 02/02/18 06:00 Cefazolin # 7 Antibiotics # 10 - Physical Exam General Appearance: non-toxic, other (Confused) EENT: scleral icterus, No conjunctival petechiae Respiratory: lungs clear, No respiratory distress Cardiac/Chest: regular rate, rhythm Extremities: No inflammation Abdomen: non-tender, No distended Skin: No embolic lesions ICD10 Worksheet Patient Problems: Problems Problem Status Onset Acute renal failure Acute Back pain Acute Cirrhosis Acute Elevated BUN Acute Elevated LFTs Acute Hyperkalemia Acute Abdominal pain Acute GI bleed Acute History of esophageal stricture Acute
[2018-02-15] MEDS: CHOLECALCIFEROL VIT D3 1,000 UNITS TAB PO SCH (13:47)
[2018-02-15] MEDS: CALCIUM CARB W/VIT D 500 MG TAB PO SCH (13:47)
--- NOTE | 2018-02-15 14:11 | HOSPPROG ---
Hospitalist Progress Note Assessment/Plan: 52 yo F with ESLD pw septic shock # Septic shock secondary to MSSA bacteremia -resolved, off pressors # MSSA bacteremia: ID following, continue ancef with likely 8 week course # L4 diskitis: in setting of above, as above # Acute hypoxic respiratory failure - 2/2 ARDS and resolved, now doing well on RA # Acute on chronic encephalopathy- suspect hepatic encephalopathy as well as toxic / metabolic with infection. 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 She was previously on transplant list but currently off. Complicated by HE which is improved but still not clear. # Elevated troponin - mild bump in trop, likely strain in setting of sepsis and brief A fib # Acute kidney injury - likely pre-renal / sepsis related. Improved with IVF's and vasopressor support. HyperK resolved # Hypernatremia - resolved # hypophosphatemia/hypoK/hypoMag: electrolyte protocol # Metabolic acidosis - Resolved. # a fib: monitoring, most recently in NSR # Diabetes mellitus type 2 - recent hemoglobin A1c measured at 7.3%. cont ssi # Thrombocytopenia-acute on chronic in setting of liver disease, monitoring # FEN -TF at goal # DVT prophylaxis- compression devices. No heparin or Lovenox in light of acute kidney injury and thrombocytopenia. # Disposition- cont inpt / SDU care plan reviewed with Dr. Friare and multidisciplinary team on rounds Subjective: no significant overnight events, patient remains confused, intermittently agitated Objective: Vital Signs Temp Pulse Resp BP Pulse Ox 36.9 C 101 H 19 123/65 H 95 02/15/18 13:41 02/15/18 13:41 02/15/18 13:41 02/15/18 13:41 02/15/18 13:41 Laboratory Results 02/13/18 03:25 02/15/18 05:18 02/14/18 02/15/18 02/16/18 05:59 05:59 05:59 Intake Total 2771 1450 Output Total 380 1750 Balance 2391 -300 PT 26.7 SEC (12.0-15.0) H 02/10/18 04:05 INR 2.47 (0.83-1.16) H 02/10/18 04:05 awake alert scleral icterus poor dentition rrr no mrg cta b to ant exam soft nt nd 1+ pitting edema ble warm dry jaundiced agitated, not following commands or answering questions appropriately ICD10 Worksheet Patient Problems: Problems Problem Status Onset GI bleed Acute Cirrhosis Acute Abdominal pain Acute History of esophageal stricture Acute Acute renal failure Acute Back pain Acute Elevated LFTs Acute Elevated BUN Acute Hyperkalemia Acute
[2018-02-15] MEDS ORDERED: MAGNESIUM SULF 1 GM/DEXTROSE 100 ML IV ONE (14:52)
--- NOTE | 2018-02-15 17:05 | ASMTCMCOM ---
CM Note CM Note Notes: Spoke to patient's partner, Duke re: Social Security Disability. He reports that she had started the disability process about 1yr ago but he had recently received paperwork in the mail. I encouraged him to report back to Social Security and give them updated info incl. letter of her inability to make decisions. Duke signed the [id number] and it was faxed to [facility] today. Catarina Monsalve interested in admitting when these insurance payors are in place. Patient continues to be very confused and in need of a sitter. Date Signed: 02/15/2018 05:04 PM Electronically Signed By:Tran Calvillo LCSW
[2018-02-15] MEDS: PATCH REMOVAL 1 EA PATCH TD SCH (21:44)
[2018-02-15] MEDS: HALOPERIDOL LACT 5 MG/ML INJ IVP PRN (23:12)
[2018-02-16] MEDS ORDERED: HYDROmorphone HCL/NS 0.5 MG/ML SYR IVP ONE ×2 (00:56→03:44)
[2018-02-16] MEDS: ceFAZolin 2 GM/SWFI 2 GM/20 ML SYR IVP SCH ×3 (05:39→20:01)
[2018-02-16 06:29] LABS: PLATELET COUNT 56 10^3/uL (150-400)
[2018-02-16] MEDS: FAMOTIDINE 20 MG TAB PO SCH ×2 (08:29→20:01)
[2018-02-16] MEDS: RIFAXIMIN 550 MG TAB PO SCH ×2 (08:29→20:01)
[2018-02-16] MEDS: THIAMINE HCL 100 MG TAB PO SCH (08:29)
[2018-02-16] MEDS: traMADol 50 MG TAB PO PRN ×2 (08:29→14:49)
[2018-02-16] MEDS: LIDOCAINE 4%/MENTHOL 1% PATCH TD SCH (08:29)
[2018-02-16] MEDS: LACTULOSE 20 GM/30 ML UDCUP PO SCH ×4 (08:30→20:03)
[2018-02-16] MEDS: POTASSIUM Cl (KCl) 20 MEQ in 1/2 NS 1,000 ML IV SCH ×2 (08:36→23:50)
[2018-02-16] MEDS: INSULIN LISPRO 100 UNIT/ML SC SCH ×3 (08:40→18:34)
[2018-02-16] MEDS ORDERED: FUROSEMIDE 40 MG/4 ML VIAL IVP ONE (09:51)
--- NOTE | 2018-02-16 09:54 | PDINTPN ---
Claim Benefit Specialist Progress Note Assessment/Plan: Assessment/plan: * MSSA Bacteremia: ? due to UTI vs spinal source. On levaquin to cover both MSSA and Klebsiella in the sputum. Repeat blood cultures negative but sputums remain positive for Klebsiella. ECHO negative. MRI of the spine suggestive of spinal osteomyelitis at L4. Infectious Disease is following. Will need prolonged IV antibiotics on discharge. * MANA: Non-oliguric. Resolved. * Metabolic: Hypernatremic: Resolved * Hypotension: Blood pressures improved. Pulled out PICC line, not requiring pressor therapy. Received albumin. * History chronic alcoholism: With end-stage cirrhosis, encephalopathy, coagulopathy, icterus. Ammonia level normalized with lactulose and rifaximin. INR elevated. No longer drinking by report. Was on the transplant list at [place], reportedly taken off?. * Hepatic encephalopathy. Very slow to improve. Ammonia normalized -continue lactulose * Acute Hypoxemic Respiratory failure: Oxygen requirements up today. Chest x- ray reveals pulmonary edema -will give Lasix 40 mg today * Pulmonary HTN: "Moderate-Severe" on ECHO. May be due to and a contributor to hypoxemic respiratory failure. * Nutrition: Pulled NG tube out. Taking oral purees with swallowing precautions. She appears to aspirate at times but has a good cough to clear aspirated material. Subjective: In bed. Mental status still diminished with increased confusion and slight agitation Objective: Vital Signs Temp Pulse Resp BP Pulse Ox 36.6 C 90 25 H 106/68 95 02/16/18 07:49 02/16/18 07:49 02/16/18 07:49 02/16/18 07:49 02/16/18 08:45 Laboratory Results 02/16/18 06:12 02/16/18 06:12 02/15/18 02/16/18 02/17/18 05:59 05:59 05:59 Intake Total 1450 2462 Output Total 1750 Balance -300 2462 PT 26.7 SEC (12.0-15.0) H 02/10/18 04:05 INR 2.47 (0.83-1.16) H 02/10/18 04:05 - Time Spent With Patient Time Spent With Patient: 25 min of time spent with patient, over 1/2 involved with coordination of care counseling. Case discussed with nursing. Physical Exam - Physical Exam General Appearance: mild distress, other, No alert (Awake) EENT: PERRL/EOMI Neck: non-tender, full range of motion, supple, normal inspection Respiratory: rales (Bibasilar), No wheezing Cardiac/Chest: normal peripheral pulses (Mob), regular rate, rhythm Peripheral Pulses: 2+: carotid (R), carotid (L), femoral (R), femoral (L), dorsalis-pedis (R), dorsalis-pedis (L) Abdomen: normal bowel sounds, non-tender, soft Pelvic Exam: deferred Rectal: deferred Skin: normal color, warm/dry Extremities: normal range of motion, non-tender, normal inspection, normal capillary refill Neuro/Psych: No alert, No oriented x 3 ICD10 Worksheet Patient Problems: Problems Problem Status Onset Acute renal failure Acute Back pain Acute Cirrhosis Acute Elevated BUN Acute Elevated LFTs Acute Hyperkalemia Acute Abdominal pain Acute GI bleed Acute History of esophageal stricture Acute
[2018-02-16] MEDS ORDERED: MAGNESIUM SULF 1 GM/DEXTROSE 100 ML IV ONE (10:29)
--- NOTE | 2018-02-16 11:28 | HOSPPROG ---
Hospitalist Progress Note Assessment/Plan: 52 yo F with ESLD pw septic shock # Septic shock secondary to MSSA bacteremia -resolved, off pressors # MSSA bacteremia: ID following, continue ancef with likely 8 week course # L4 diskitis: in setting of above, as above # Acute hypoxic respiratory failure - 2/2 ARDS initially, intubated and since extubated,cxr today personally reviewed and notable for increased pulmonary edema, lasix ordered # Acute on chronic encephalopathy- suspect hepatic encephalopathy as well as toxic / metabolic with infection. 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 She was previously on transplant list but currently off. Complicated by HE which is improved but still not clear. # Elevated troponin - mild bump in trop, likely strain in setting of sepsis A fib # pulmonary htn: noted to be moderate to severe on echo # Acute kidney injury - likely pre-renal / sepsis related. Improved with IVF's and vasopressor support. HyperK resolved # Hypernatremia - resolved # hypophosphatemia/hypoK/hypoMag: electrolyte protocol # Metabolic acidosis - Resolved. # Diabetes mellitus type 2 - recent hemoglobin A1c measured at 7.3%. cont ssi # Thrombocytopenia-acute on chronic in setting of liver disease, monitoring # FEN -TF at goal # DVT prophylaxis- compression devices. Thrombocytopenia limiting ability to use chemical AC # Disposition- cont inpt / SDU care plan reviewed with Dr. Fraire and multidisciplinary team on rounds Subjective: no significant overnight events, continues to be slightly agitated and encephalopathic Objective: Vital Signs Temp Pulse Resp BP Pulse Ox 36.6 C 92 20 106/68 94 02/16/18 07:49 02/16/18 10:55 02/16/18 10:55 02/16/18 07:49 02/16/18 10:55 Laboratory Results 02/16/18 06:12 02/16/18 06:12 02/15/18 02/16/18 02/17/18 05:59 05:59 05:59 Intake Total 1450 2462 Output Total 1750 Balance -300 2462 PT 26.7 SEC (12.0-15.0) H 02/10/18 04:05 INR 2.47 (0.83-1.16) H 02/10/18 04:05 awake alert scleral icterus poor dentition rrr no mrg cta b to ant exam soft nt nd 1+ pitting edema ble warm dry jaundiced agitated, not following commands or answering questions appropriately ICD10 Worksheet Patient Problems: Problems Problem Status Onset Acute renal failure Acute Back pain Acute Cirrhosis Acute Elevated BUN Acute Elevated LFTs Acute Hyperkalemia Acute Abdominal pain Acute GI bleed Acute History of esophageal stricture Acute
[2018-02-16] MEDS ORDERED: DILTIAZEM 125 MG in D5W 125 ML IV SCH (11:30)
[2018-02-16] MEDS ORDERED: DILTIAZEM 25 MG/5 ML VIAL IVP SCH (11:30)
[2018-02-16] MEDS ORDERED: DILTIAZEM 25 MG/5 ML VIAL IVP ONE (11:33)
[2018-02-16] MEDS: CALCIUM CARB W/VIT D 500 MG TAB PO SCH (11:51)
[2018-02-16] MEDS: CHOLECALCIFEROL VIT D3 1,000 UNITS TAB PO SCH (11:51)
[2018-02-16] MEDS: HALOPERIDOL LACT 5 MG/ML INJ IVP PRN ×2 (13:48→20:00)
[2018-02-16] MEDS ORDERED: QUEtiapine FUMARATE 25 MG TAB PO ONE (14:35)
[2018-02-16] MEDS: LORazepam 2 MG/ML INJ IVP PRN (20:00)
[2018-02-16] MEDS: PATCH REMOVAL 1 EA PATCH TD SCH (20:01)
[2018-02-17] MEDS: LORazepam 2 MG/ML INJ IVP PRN ×2 (00:17→02:58)
[2018-02-17] MEDS: HALOPERIDOL LACT 5 MG/ML INJ IVP PRN ×3 (02:58→20:02)
[2018-02-17 05:40] LABS: PLATELET COUNT 37 10^3/uL (150-400)
[2018-02-17] MEDS: ceFAZolin 2 GM/SWFI 2 GM/20 ML SYR IVP SCH ×3 (07:13→21:31)
[2018-02-17] MEDS: INSULIN LISPRO 100 UNIT/ML SC SCH ×3 (07:40→18:13)
[2018-02-17] MEDS ORDERED: POTASSIUM CL 10 MEQ TAB PO ONE (07:40)
--- NOTE | 2018-02-17 09:09 | PDINTPN ---
[facility] Progress Note Assessment/Plan: Assessment/plan: * MSSA Bacteremia: ? due to UTI vs spinal source. On levaquin to cover both MSSA and Klebsiella in the sputum. Repeat blood cultures negative but sputums remain positive for Klebsiella. ECHO negative. MRI of the spine suggestive of spinal osteomyelitis at L4. Infectious Disease is following. Will need prolonged IV antibiotics on discharge. * MANA: Non-oliguric. Resolved. * Metabolic: Hypernatremic: Resolved * Hypotension: Blood pressures improved. * History chronic alcoholism: With end-stage cirrhosis, encephalopathy, coagulopathy, icterus. Ammonia level normalized with lactulose and rifaximin. INR elevated. No longer drinking by report. Was on the transplant list at [place], reportedly taken off?. * Hepatic encephalopathy. Very slow to improve. Ammonia normalized. Sleeping finally. -continue lactulose * Acute Hypoxemic Respiratory failure: Oxygen requirements up today. Chest x- ray reveals pulmonary edema -repeat chest x-ray today * Pulmonary HTN: "Moderate-Severe" on ECHO. May be due to and a contributor to hypoxemic respiratory failure. * Nutrition: Pulled NG tube out. Taking oral purees with swallowing precautions. She appears to aspirate at times but has a good cough to clear aspirated material. Subjective: Sleeping Objective: Vital Signs Temp Pulse Resp BP Pulse Ox 38.1 C 86 14 102/78 91 L 02/17/18 04:00 02/17/18 04:00 02/17/18 04:00 02/17/18 04:00 02/17/18 04:00 Laboratory Results 02/17/18 05:27 02/17/18 05:27 02/16/18 02/17/18 02/18/18 05:59 05:59 05:59 Intake Total 2462 817.1 1020 Balance 2462 817.1 1020 PT 26.7 SEC (12.0-15.0) H 02/10/18 04:05 INR 2.47 (0.83-1.16) H 02/10/18 04:05 Laboratory Results 02/17/18 05:27 02/17/18 05:27 02/17/18 02/17/18 05:27 05:27 Calcium 9.7 mg/dL mg/dL (8.5 - 10.4) Magnesium 1.5 mg/dL L mg/dL (1.6 - 2.3) Total Bilirubin 8.7 mg/dL H mg/dL (0.1 - 1.4) Conjugated Bilirubin 3.8 mg/dL H mg/dL (0.0 - 0.5) Unconjugated Bilirubin 4.9 mg/dL H mg/dL (0.0 - 1.1) AST 34 IU/L IU/L (14 - 46) ALT 26 IU/L IU/L (9 - 52) Alkaline Phosphatase 81 IU/L IU/L (38 - 126) Total Protein 6.7 g/dL g/dL (6.3 - 8.2) Albumin 2.6 g/dL L g/dL (3.5 - 5.0) - Time Spent With Patient Time Spent With Patient: 25 min of time spent with patient, over 1/2 involved with coordination of care or counseling Physical Exam - Physical Exam General Appearance: other (Resting comfortably), No alert EENT: PERRL/EOMI Neck: non-tender, full range of motion Respiratory: chest non-tender, lungs clear, normal breath sounds Cardiac/Chest: normal peripheral pulses, regular rate, rhythm, systolic murmur Peripheral Pulses: 2+: carotid (R), carotid (L), femoral (R), femoral (L), dorsalis-pedis (R), dorsalis-pedis (L) Abdomen: normal bowel sounds, non-tender, soft Pelvic Exam: deferred Rectal: deferred Skin: normal color, warm/dry Extremities: normal range of motion, non-tender, normal inspection, normal capillary refill Neuro/Psych: No alert ICD10 Worksheet Patient Problems: Problems Problem Status Onset Acute renal failure Acute Back pain Acute Cirrhosis Acute Elevated BUN Acute Elevated LFTs Acute Hyperkalemia Acute Abdominal pain Acute GI bleed Acute History of esophageal stricture Acute
[2018-02-17] MEDS ORDERED: MAGNESIUM SULF 1 GM/DEXTROSE 100 ML IV ONE (09:54)
[2018-02-17] MEDS: LIDOCAINE 4%/MENTHOL 1% PATCH TD SCH (09:56)
[2018-02-17] MEDS: THIAMINE HCL 100 MG TAB PO SCH (09:56)
[2018-02-17] MEDS: FAMOTIDINE 20 MG TAB PO SCH ×2 (09:57→20:05)
[2018-02-17] MEDS: LACTULOSE 20 GM/30 ML UDCUP PO SCH ×4 (09:57→21:13)
[2018-02-17] MEDS: RIFAXIMIN 550 MG TAB PO SCH ×2 (09:57→20:05)
[2018-02-17] MEDS ORDERED: LACTULOSE 200 GM in SODIUM CL IRRIG SOLUTION 700 ML PR PRN (10:23)
[2018-02-17] MEDS: METOPROLOL TARTRATE 25 MG TAB PO SCH ×2 (10:35→20:05)
[2018-02-17] MEDS: CALCIUM CARB W/VIT D 500 MG TAB PO SCH (12:10)
[2018-02-17] MEDS: CHOLECALCIFEROL VIT D3 1,000 UNITS TAB PO SCH (12:10)
[2018-02-17] MEDS: traMADol 50 MG TAB PO PRN (12:10)
--- NOTE | 2018-02-17 13:14 | PCMIDPN ---
Assessment/Plan: # Sepsis due to MSSA bacteremia and L4 OM/discitis: blood cultures cleared, ECHO neg --cefazolin for 8 weeks --call ID if aggressive therapy continued. # Low grade fever, nl wbc, encephalopathy. No clear indicators of drug fever, no rash, nl LFT, no eosinophilia. No unexpected GI findings. # Cirrhosis: anemia, thrombocytopenia. Known varices. still encephalopathic # Possible HAP s/p 7 days of therapy meds cefazolin 2gm IV q8, 01/31-, 02/09- current micro 01/30 blood cx (2) MSSA 02/01 blood cx (2) Neg 02/03 BAL: klebsiella Subjective: patient remains confused family considering hospice due to lack of improvement Objective: Vital Signs Temp Pulse Resp BP Pulse Ox 37.2 C 100 20 132/69 H 91 L 02/17/18 09:53 02/17/18 09:53 02/17/18 09:53 02/17/18 09:53 02/17/18 09:53 Laboratory Results 02/17/18 05:27 02/17/18 05:27 02/16/18 02/17/18 02/18/18 05:59 05:59 05:59 Intake Total 2462 817.1 1020 Balance 2462 817.1 1020 C-Reactive Protein 85.9 mg/L (<10.0) H 02/02/18 06:00 - Physical Exam General Appearance: other (awakes to gentle contact) EENT: scleral icterus, poor dentition Respiratory: lungs clear, No accessory muscle use Cardiac/Chest: tachycardia Extremities: No pedal edema Abdomen: non-tender, soft Skin: jaundice, No rash Neuro/Psych: confused - Line/s LUE PICC Lines: No drainage, No erythema ICD10 Worksheet Patient Problems: Problems Problem Status Onset Acute renal failure Acute Back pain Acute Cirrhosis Acute Elevated BUN Acute Elevated LFTs Acute Hyperkalemia Acute Abdominal pain Acute GI bleed Acute History of esophageal stricture Acute
--- NOTE | 2018-02-17 14:23 | HOSPPROG ---
Hospitalist Progress Note Assessment/Plan: Assessment: 52-year-old female presents with septic shock in the setting of MSSA bacteremia and L4 diskitis complicated by acute toxic and metabolic encephalopathy, end-stage liver disease Plan: # Septic shock secondary to MSSA bacteremia: resolved, off pressors # MSSA bacteremia: ID following, continue ancef with likely 8 week course # L4 diskitis: in setting of above, as above - continues to experience back pain, cont pain control # Acute hypoxic respiratory failure: 2/2 ARDS initially, intubated and since extubated, CXR 02/16 w/ increased interstitial markings/edema (personally interpreted), indicative of volume component - s/p lasix 02/16, currently holding further diuresis due to low BPs # Acute on chronic toxic and metabolic encephalopathy: evidenced by global brain dysfunction w/ worsening lethargy and poor responsiveness, patient currently only able to respond to verbal stimuli but does not engage in further communication or follow commands, likely 2/2 combination of hepatic encephalopathy, metabolic effects of MANA, toxic effects of infxn, all equally contributing - despite aggressive lowering of ammonia level w/ lactulose, tx of infxn, and recovery of renal fxn, patient remains densely encephalopathic # Atrial fibrillation w/ rvr: reoccurred overnight, chemically cardioverted w/ dilt gtt -discussed with Dr. 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 # Diabetes mellitus type 2: recent hemoglobin A1c measured at 7.3%. cont ssi # Thrombocytopenia: acute on chronic in setting of liver disease, monitoring # Diet: as tolerates, high aspiration risk # DVT prophylaxis- compression devices, thrombocytopenia limiting ability to use chemical AC # Disposition: cont 1:1 w/ sitter High-level medical complexity, high risk for worsening morbidity and/or mortality, secondary to the issues outlined above. Subjective: Patient restless all night, minimally directable, no bowel movement Objective: Vital Signs Temp Pulse Resp BP Pulse Ox 37.3 C 85 15 113/94 H 92 02/17/18 13:30 02/17/18 13:30 02/17/18 13:30 02/17/18 13:30 02/17/18 13:30 Laboratory Results 02/17/18 05:27 02/17/18 05:27 02/16/18 02/17/18 02/18/18 05:59 05:59 05:59 Intake Total 2462 817.1 1020 Balance 2462 817.1 1020 PT 26.7 SEC (12.0-15.0) H 02/10/18 04:05 INR 2.47 (0.83-1.16) H 02/10/18 04:05 - Physical Exam Constitutional: chronically ill appearing, uncomfortable, unkempt, No not in pain (Intermittently moderately in pain) Eyes: PERRL, EOMI, icteric sclera, No scleral injection Cardiovascular: systolic murmur (1/6 sternum and apex), No irregularly irregular , No tachycardia, No edema Respiratory: inspiratory crackles (Bilateral bases), No reduced air movement, No expiratory wheeze, No bronchial breath sounds, No respiratory distress Gastrointestinal: normoactive bowel sounds, tenderness (Mild), ascites, distension (Mild), No guarding Skin: other (Jaundiced) Neurologic: other (Alert awake oriented times 0, patient responsive to verbal stimuli, but not following commands, restless in bed) Psychiatric: not anxious, encephalopathic, flat affect, agitated ICD10 Worksheet Patient Problems: Problems Problem Status Onset Acute renal failure Acute Back pain Acute Cirrhosis Acute Elevated BUN Acute Elevated LFTs Acute Hyperkalemia Acute Abdominal pain Acute GI bleed Acute History of esophageal stricture Acute
[2018-02-17] MEDS ORDERED: OLANZapine DISINTEGR 5 MG TAB PO PRN (14:37)
--- NOTE | 2018-02-17 14:48 | ASMTCMCOM ---
CM Note CM Note Notes: Spoke with Dr. Herrera regarding plans for patient. Sent a referral to [facility] per Dr. Herrera's request via [facility] and left them a message via phone to call me to set up hospice information session. Dr. Herrera spoke to [facility] and he agrees inpatient hospice is the best way for patient to receive ongoing care and symptom management. Awaiting [facility]'s return call to set up meeting. DIONNE will follow. Date Signed: 02/17/2018 02:48 PM Electronically Signed By:Rosi Trivedi LCSW
--- NOTE | 2018-02-17 17:19 | ASMTCMCOM ---
CM Note CM Note Notes: [facility] called back and he can meet with [facility] at 4:00PM (16:00). [facility] has accepted patient for their care center in [place]. Proxy forms signed as there were no documents in the patient's medical chart. Will coordinate with [facility] in the morning to set up transport and fax all d/c paperwork to [facility]. Shefali is the [facility] nurse who came to meet with [facility] at 4:00. CM will follow. Date Signed: 02/17/2018 05:18 PM Electronically Signed By:Rosi Trivedi LCSW
[2018-02-17] MEDS ORDERED: MELATONIN 3 MG TAB PO SCH (21:00)
[2018-02-17] MEDS: PATCH REMOVAL 1 EA PATCH TD SCH (21:14)
[2018-02-18] MEDS: HALOPERIDOL LACT 5 MG/ML INJ IVP PRN ×2 (00:18→04:02)
[2018-02-18] MEDS: LACTULOSE 20 GM/30 ML UDCUP PO SCH (06:56)
[2018-02-18] MEDS: ceFAZolin 2 GM/SWFI 2 GM/20 ML SYR IVP SCH (06:56)
[2018-02-18] MEDS: METOPROLOL TARTRATE 25 MG TAB PO SCH (08:11)
[2018-02-18] MEDS: FAMOTIDINE 20 MG TAB PO SCH (08:11)
[2018-02-18] MEDS: THIAMINE HCL 100 MG TAB PO SCH (08:11)
[2018-02-18] MEDS: RIFAXIMIN 550 MG TAB PO SCH (08:11)
[2018-02-18] MEDS: LIDOCAINE 4%/MENTHOL 1% PATCH TD SCH (08:11)
[2018-02-18 08:16] VITALS: BP 128/64
[2018-02-18] MEDS: INSULIN LISPRO 100 UNIT/ML SC SCH (09:04)
--- NOTE | 2018-02-18 09:18 | PDINTPN ---
Hydrotechnical Specialist Progress Note Assessment/Plan: Assessment/plan: * MSSA Bacteremia: ? due to UTI vs spinal source. On levaquin to cover both MSSA and Klebsiella in the sputum. Repeat blood cultures negative but sputums remain positive for Klebsiella. ECHO negative. MRI of the spine suggestive of spinal osteomyelitis at L4. Infectious Disease is following. Will need prolonged IV antibiotics on discharge. * MANA: Non-oliguric. Resolved. * Metabolic: Hypernatremic: Resolved * Hypotension: Blood pressures improved. Stable * History chronic alcoholism: With end-stage cirrhosis, encephalopathy, coagulopathy, icterus. Ammonia level normalized with lactulose and rifaximin. INR elevated. No longer drinking by report. Was on the transplant list at [place], reportedly taken off?. * Hepatic encephalopathy. No improvement. Ammonia normalized. Sleeping finally. -continue lactulose * Acute Hypoxemic Respiratory failure: Oxygen requirements up today. Chest x- ray reveals pulmonary edema * Pulmonary HTN: "Moderate-Severe" on ECHO. May be due to and a contributor to hypoxemic respiratory failure. * Nutrition: Pulled NG tube out. Taking oral purees with swallowing precautions. She appears to aspirate at times but has a good cough to clear aspirated material. * Disposition-possible hospice later on today Subjective: A sleep. Not currently agitated. Objective: Vital Signs Temp Pulse Resp BP Pulse Ox 36.9 C 76 18 128/64 H 93 02/18/18 00:00 02/18/18 08:00 02/18/18 08:00 02/18/18 08:00 02/18/18 08:00 Laboratory Results 02/17/18 05:27 02/17/18 05:27 02/17/18 02/18/18 02/19/18 05:59 05:59 05:59 Intake Total 817.1 1260 Balance 817.1 1260 PT 26.7 SEC (12.0-15.0) H 02/10/18 04:05 INR 2.47 (0.83-1.16) H 02/10/18 04:05 - Time Spent With Patient Time Spent With Patient: 25 min of time spent with patient, over 1/2 involved coordination of care or counseling Physical Exam - Physical Exam General Appearance: No alert EENT: PERRL/EOMI Neck: non-tender, full range of motion, supple, normal inspection Respiratory: chest non-tender, lungs clear, normal breath sounds Cardiac/Chest: normal peripheral pulses, regular rate, rhythm Abdomen: normal bowel sounds, non-tender, soft Pelvic Exam: deferred Rectal: deferred Skin: normal color, warm/dry Extremities: non-tender Neuro/Psych: No alert, No oriented x 3 ICD10 Worksheet Patient Problems: Problems Problem Status Onset Acute renal failure Acute Back pain Acute Cirrhosis Acute Elevated BUN Acute Elevated LFTs Acute Hyperkalemia Acute Abdominal pain Acute GI bleed Acute History of esophageal stricture Acute
--- NOTE | 2018-02-18 10:53 | PDIAF ---
- Diagnosis Diagnosis: Cirrhosis w/ end-stage liver disease, encephalopathy, MSSA diskitis Code Status: Do Not Resuscitate - Medication Management Discharge Medications: Medications to Continue on Transfer Lactulose 10 gm PO QID #40 solution 02/18/18 [Last Taken Unknown] Ondansetron Odt [Zofran Odt 4 mg (*)] 4 mg PO Q4 PRN #0 02/18/18 [Last Taken 09:00] morphINE [Roxanol 10 mg/0.5 ml oral soln (*)] 10 mg PO Q2 #1 btl 02/18/18 [Last Taken Unknown] Senior [employer] Agent Antibiotics: NA Discharge Medications: Refer to the Discharge Home Medication list for PRN reason. PICC Care - Routine: N/A - Orders Services needed: Registered Nurse, Certified Self Contained Behavior Unit Teacher Isolation Type: None Oxygen: RA Diet Texture: Dysphagia 1 - Pureed, Water Protocol, Ice Chips, No Oral Liquids, Meds Crushed in Puree - Follow Up Care Current Providers and Referrals: Bridget Lieberman, PAC [Primary Care Provider] - As per Instructions
--- NOTE | 2018-02-18 11:06 | PDDCSUM ---
Discharge Summary Discharge Summary: DISCHARGE SUMMARY FOLLOW-UP ITEMS: Symptom management DATE OF ADMISSION: 01/30/2018 DATE OF DISCHARGE: 02/18/2018 DISCHARGE DIAGNOSES: 1. Septic shock present on admission 2. MSSA bacteremia present on admission 3. L4 diskitis present on admission 4. Acute hypoxic respiratory failure with acute respiratory distress syndrome 5. Acute on chronic toxic and metabolic encephalopathy 6. Atrial fibrillation with acute rapid ventricular response 7. Alcohol induced cirrhosis with end-stage liver disease 8. Acute demand ischemia 9. Acute kidney injury 10. Acute hyponatremia and hypernatremia 11. Acute metabolic acidosis CONSULTATIONS: Hospice, infectious Disease, Pulmonary Critical Care, Nephrology PROCEDURES / IMAGING: PICC line placement, lumbar MRI, liver ultrasound CHIEF COMPLAINT: Acute abdominal pain and confusion SUBJECTIVE: Patient is encephalopathic, she has eyes closed, she does not appear to be in pain PHYSICAL EXAM ON DISCHARGE: Systolic blood pressure 120-140, heart rate 70 90, satting well on room air, afebrile times 24 hr, abdomen is non tense but is mildly distended, she has no lower extremity edema, heart rhythm and rate are regular, she is alert awake oriented times 0, response to tactile stimuli but does not provide any coherent verbal responses LABS ON DISCHARGE: Creatinine 0.5, total bilirubin 8.7, albumin 2.6, glucose 144, hemoglobin 8.6, platelets 77514, white blood count 4500 HOSPITAL COURSE BY PROBLEM: The patient presented with acute abdominal pain and encephalopathy secondary to the toxic effects of septic shock which was secondary to MSSA bacteremia and seeding of the lumbar spine resulting in L4 diskitis and back pain. The patient was ruled out for bacterial peritonitis with no clearly identifiable ascites for drainage and she otherwise had clear source of infection in her back and in her blood stream. She was seen by Infectious Disease narrowed her antibiotic coverage to IV Ancef, and repeated lumbar spine MRI to evaluate for improvement. They recommended total 8 week course of IV antibiotics. During her hospitalization, the patient experienced acute hypoxic respiratory failure secondary to acute respiratory distress syndrome, required intubation, and after extubation she continued to require diuresis given a hypovolemic component in the setting of volume resuscitation for her original septic shock. By the time of discharge, she has been weaned off of supplemental oxygen and does not require ongoing diuresis for symptom management. Her hospital course was complicated by acute worsening of her encephalopathy, which was clear global brain dysfunction characterized as somnolence, worsening lethargy, poor responsiveness, poor directive debility, inability to follow commands, inability to verbally communicate in a meaningful way. Her baseline cognition prior to her acute illness was interactive, and able to complete activities of daily living. Her medical power of basketballs and footballs reverser believe that the patient would not want to continue residing in this very poor cognitive and functional state, and palliative consultation was performed, and the decision was made to pursue inpatient hospice given patient's symptom management for pain control as well as supportive care for agitation. We exhausted all methods of treating her possible hepatic encephalopathy with scheduled lactulose dosing and despite her experiencing bowel movements, her mental status did not improve. Consequently, it is most likely that her acute encephalopathy is multifactorial including metabolic effects of her original kidney injury, the toxic effects of her infection, her underlying hepatic encephalopathy, as well as her overall terminal condition of end-stage liver disease. On discharge, the patient will be prescribed as needed Roxanol, as needed Zofran, and additional agents can be utilized for symptom management. I discussed whether antibiotic should be continued palliatively, and Infectious Disease did not recommend this, as they feel that the patient has already received adequate IV antibiotic treatment to stabilize her infection, and she should not continue experiencing symptomatic pain from the affected area, and oral antibiotics would not provide any additional benefit at this juncture. DISCHARGE MEDICATIONS: Please see official discharge medication reconciliation sheet in chart , Roxanol , Zofran, scheduled lactulose to prevent acute worsening from her propensity for hepatic encephalopathy. DISCHARGE INSTRUCTIONS: Symptomatic management general inpatient hospice. TIME SPENT: Greater than 30 minutes were spent on direct patient care, as well as discharge planning and preparation.
== END 2018-02-18 11:20 | disposition hospice, home (50) | DRG 720 ==
LOC: F2N 18:22
PROVIDERS: ADMIT Internal Medicine; ATTEND Internal Medicine
PROC: 02HV33Z Insertion of Infusion Device into Superior Vena Cava, Percutaneous Approach (ICD-10-PCS; 2018-01-30)
PROC: 0BJ08ZZ Inspection of Tracheobronchial Tree, Via Natural or Artificial Opening Endoscopic (ICD-10-PCS; principal; 2018-02-03)
PROC: 5A1955Z Respiratory Ventilation, Greater than 96 Consecutive Hours (ICD-10-PCS; principal; 2018-02-03)
PROC: 0BH18EZ Insertion of Endotracheal Airway into Trachea, Via Natural or Artificial Opening Endoscopic (ICD-10-PCS; principal; 2018-02-03)
DX: A41.01 Sepsis due to Methicillin susceptible Staphylococcus aureus (principal); R65.21 Severe sepsis with septic shock; J96.01 Acute respiratory failure with hypoxia; M46.46 Discitis, unspecified, lumbar region; N17.9 Acute kidney failure, unspecified; G93.40 Encephalopathy, unspecified; N39.0 Urinary tract infection, site not specified; K70.40 Alcoholic hepatic failure without coma; K70.30 Alcoholic cirrhosis of liver without ascites; E87.5 Hyperkalemia; E87.1 Hypo-osmolality and hyponatremia; I27.20 Pulmonary hypertension, unspecified; E11.9 Type 2 diabetes mellitus without complications; F10.20 Alcohol dependence, uncomplicated; I48.91 Unspecified atrial fibrillation; F17.210 Nicotine dependence, cigarettes, uncomplicated
CPT/HCPCS: 84134-90; 92526-GN; 92610-GN; 97161-GP; 97166-GO; 97530-GO; 97530-GP; 97535-GO; A9585; C1751; J0282; J0610; J0690; J0696; J1170; J1630; J1815; J1940; J1956; J2060; J2250; J2270; J2405; J2543; J2704; J2765; J3010; J3370; J3411; J3475; J3480; P9035; P9041; P9047; P9073